=== PATIENT | male | born 1955 | race Caucasian/White ===

== ENCOUNTER 2019-01-01 10:58 | Inpatient (IN) | payer OTHER ==
[~2019-01-01] VITALS: Ht 200.7 cm; Wt 109.1 kg
[2019-01-01] VITALS (15 sets, daily range): BP systolic 121–178; BP diastolic 59–96
[2019-01-01 12:05] LABS: CLARITY,URINE CLEAR (Clear); COLOR,URINE YELLOW (Yellow); GLUCOSE, URINE >=1000 mg/dl (Neg); KETONES,URINE TRACE mg/dl (Neg); LEUKOCYTE ESTERASE ,URINE NEGATIVE (Neg); NITRITES, URINE NEGATIVE (Neg); OCCULT BLOOD,URINE NEGATIVE (Neg); PH,URINE 5.5 (4.8-8.0); PROTEIN,URINE NEGATIVE (Neg); UROBILINOGEN,URINE 0.2 E.U/dL (0.2-1.0)
[2019-01-01 12:06] LABS: UA COLLECTION TYPE CLN CATCH MIDSTREAM
[2019-01-01 12:12] LABS: ALANINE AMINOTRANSFERASE 51 U/L (12-78); ALBUMIN 3.7 G/DL (3.4-5.0); ALBUMIN/GLOBULIN RATIO 0.8 (1.1-1.5); ALKALINE PHOSPHATASE 72 IU/L (46-116); ANION GAP 9 (8-16); ASPARTATE AMINO TRANSFERASE 23 U/L (10-37); BILIRUBIN,TOTAL 0.8 MG/DL (0.1-1.0); BLOOD UREA NITROGEN 16 MG/DL (7-18); CALCIUM 8.9 MG/DL (8.5-10.1); CHLORIDE 99 MMOL/L (99-107); GLUCOSE 109 MG/DL (70-104); LIPASE 248 U/L (73-393); SODIUM 134 MMOL/L (135-145); TOTAL CARBON DIOXIDE 25.9 MMOL/L (24-32); TOTAL PROTEIN 8.2 G/DL (6.4-8.2); eGFR 76 ML/MIN
[2019-01-01 12:26] LABS: BASOPHILS % (AUTO) 0.3 % (0-1); EOSINOPHILS # (AUTO) 0.1 X10'3 (0-0.9); EOSINOPHILS % (AUTO) 0.5 % (0-6); HEMATOCRIT 46.2 % (42.0-52.0); HEMOGLOBIN 15.9 g/dl (14.0-17.9); LYMPHOCYTES % (AUTO) 18.3 % (21-51); MEAN CORPUSCULAR HEMOGLOBIN 30.8 PG (27.0-31.0); MEAN CORPUSCULAR HGB CONC 34.3 g/dL (33.0-36.5); MEAN CORPUSCULAR VOLUME 89.8 FL (78-98); MEAN PLATELET VOLUME 7.6 FL (7.4-10.4); MONOCYTES # (AUTO) 1.5 X10'3 (0-0.9); MONOCYTES % (AUTO) 13.8 % (2-12); NEUTROPHILS # (AUTO) 7.2 X10'3 (1.8-7.7); NEUTROPHILS % (AUTO) 67.1 % (42-75); PLATELET COUNT 242 X10'3 (140-440); RED BLOOD COUNT 5.15 X10'6 (4.70-6.10); RED CELL DISTRIBUTION WIDTH 13.3 % (11.5-14.5); WHITE BLOOD COUNT 10.8 X10'3 (4.5-11.0)
[2019-01-01 12:30] LABS: SQUAMOUS EPITHELIAL CELL,UR NONE SEEN /LPF (FEW)
[2019-01-01] MEDS ORDERED: normal saline 1000ML IV soln IVB ONE (12:30)
[2019-01-01] MEDS ORDERED: ondansetron/PF 4mg/2ml inj IV ONE (12:30)
[2019-01-01 12:31] LABS: BACTERIA,URINE NONE SEEN /HPF (Neg); RBC,URINE NONE SEEN /HPF (0-2); WBC,URINE NONE SEEN /HPF (0-4)
[2019-01-01 13:05] LABS: MAGNESIUM 2.2 MG/DL (1.5-2.4)
[2019-01-01] MEDS: diatr meglu/diatrizoate 30ml oral sol.-(3 dose) bottle PO SCH ×3 (13:25→14:50)
[2019-01-01] MEDS: morphine 2 MG/ML inj. syringe IV PRN ×2 (13:26→16:02)
[2019-01-01] MEDS ORDERED: iohexol 300mg/ml 100ml inj. ONE (15:03)
[2019-01-01] MEDS ORDERED: MESSAGE TO NURSING PO NR (15:15)
[2019-01-01] MEDS ORDERED: morphine 4 MG/ML inj SYRINge IV ONE (15:55)
[2019-01-01] MEDS ORDERED: TETanus/Pertussis (Acell)/Diphther VAC/PF (Tdap-Adult) 0.5ml syringe IM ONE (16:05)
[2019-01-01] MEDS ORDERED: dextrose 5%-1/2 normal saline 1,000 ML IV SCH (16:14)
[2019-01-01] MEDS ORDERED: ringers solution, lacted 1,000 ML IV SCH ×2 (16:15→17:13)
[2019-01-01] MEDS ORDERED: magnesium hydroxide 30ml (MOM) UD suspension PO PRN (16:15)
[2019-01-01] MEDS ORDERED: acetaminophen 325mg tablet PO PRN ×2 (16:15)
[2019-01-01] MEDS ORDERED: morphine 2 MG/ML inj. syringe IV PRN ×2 (16:15)
[2019-01-01] MEDS ORDERED: HYDROcodone/acetaminophen 5mg/325mg tablet PO PRN ×3 (16:15→18:20)
[2019-01-01] MEDS ORDERED: ondansetron/PF 4mg/2ml inj IV PRN ×2 (16:15→17:15)
[2019-01-01] MEDS ORDERED: mag hydrox/Alum hydrox/simeth 30ml oral suspension PO PRN (16:15)
[2019-01-01] MEDS ORDERED: LIDOcaine 1% 30ml preserv. free vial ONE (16:16)
[2019-01-01] MEDS ORDERED: BUPIVAcaine/PF 2.5 mg/ml (0.25%) 30ml vial ONE (16:16)
[2019-01-01] MEDS ORDERED: sevoflurane 250ml liquid IH ONE (16:45)
[2019-01-01] MEDS ORDERED: midazolam 2 mg/2 ml injection ONE (16:55)
[2019-01-01] MEDS ORDERED: fentaNYL /PF 50mcg/ml 5ml ampule ONE (16:55)
[2019-01-01] MEDS ORDERED: rocuronium 10mg/ml inj IV ONE (16:55)
[2019-01-01] MEDS ORDERED: propofol inj 20 ML IV ONE (16:57)
[2019-01-01] MEDS ORDERED: proCHLORperazine 10 MG/2 ml inj IV PRN (17:15)
[2019-01-01] MEDS ORDERED: morphine 4 MG/ML inj SYRINge IV PRN ×2 (17:15)
[2019-01-01] MEDS ORDERED: meperidine/PF 25mg/ml syringe IV PRN ×3 (17:15)
[2019-01-01] MEDS ORDERED: cefotetan inj 1 GM in normal saline 50ml IV soln 50 ML IV SCH ×5 (17:20→20:00)
[2019-01-01] MEDS ORDERED: neostigmine methylsulfate 1 MG/ML 10ml vial ONE (18:00)
[2019-01-01] MEDS ORDERED: HYDROcodone/acetaminophen 10/325mg tab PO PRN ×2 (18:10→18:20)
[2019-01-01] MEDS ORDERED: ketorolac tromethamine 15mg/ml inj. IV ONE (18:15)
[2019-01-01] MEDS ORDERED: glycopyrrolate 0.2mg/ml inj ONE (18:19)
--- NOTE | 2019-01-01 18:20 | NUR ---
Received from OR via bed, accompanied by Anesthesiologist. Report received. Initial physical assessment done and recorded.
--- NOTE | 2019-01-01 19:20 | NUR ---
Discharge criteria met, report to receiving floor. Transferred to room in stable condition.
[2019-01-01] MEDS: HYDROcodone/acetaminophen 10/325mg tab PO PRN (19:36)
--- NOTE | 2019-01-01 19:45 | NUR ---
Patient in room [facility]. I have received report from recovering room and had the opportunity to ask questions and assume patient care. Patient is resting and was given pain meds for pain. He shows no signs of distress and his is by his bed side.
[2019-01-01] MEDS: heparin, porcine 5000 units/ml vial SQ SCH (20:00)
--- NOTE | 2019-01-01 20:15 | NUR ---
DR. BLUE AT BEDSIDE WITH PATIENT, ORDERS GIVEN FOR THE DIABETIC PROTOCOL. WILL INITIATE AND CONTINUE TO MONITOR.
[2019-01-01] MEDS ORDERED: hyDRALAzine 10mg tablet PO PRN (20:30)
[2019-01-01] MEDS ORDERED: dextrose ORAL solution 15 GM/59 ML bottle PO PRN ×2 (20:40)
[2019-01-01] MEDS ORDERED: insulin Lispro (HumaLOG) vial - multi-dose SQ SCH (20:40)
[2019-01-01] MEDS ORDERED: MESSAGE TO PHARMACY PO ONE (20:40)
[2019-01-01] MEDS ORDERED: glucagon, human recombinant 1mg kit SUBCUT PRN (20:40)
[2019-01-01] MEDS ORDERED: dextrose 50%-water 50ml dispensing syringe IV PRN ×2 (20:40)
[2019-01-01] MEDS: insulin glargine (Lantus) pen - multi-dose SQ SCH (21:00)
[2019-01-01 22:02] LABS: HEMOGLOBIN A1C 7.2 % (4.5-6.2)
[2019-01-02] VITALS: BP 128/58
[2019-01-02 05:14] LABS: BASOPHILS % (AUTO) 0.2 % (0-1); EOSINOPHILS % (AUTO) 0 % (0-6); HEMATOCRIT 40.8 % (42.0-52.0); HEMOGLOBIN 13.9 g/dl (14.0-17.9); LYMPHOCYTES # (AUTO) 1.5 X10'3 (1.1-4.8); LYMPHOCYTES % (AUTO) 11.3 % (21-51); MEAN CORPUSCULAR HEMOGLOBIN 30.5 PG (27.0-31.0); MEAN CORPUSCULAR VOLUME 89.6 FL (78-98); MEAN PLATELET VOLUME 7.5 FL (7.4-10.4); MONOCYTES # (AUTO) 1.8 X10'3 (0-0.9); NEUTROPHILS # (AUTO) 10.2 X10'3 (1.8-7.7); NEUTROPHILS % (AUTO) 75.5 % (42-75); PLATELET COUNT 211 X10'3 (140-440); RED BLOOD COUNT 4.56 X10'6 (4.70-6.10); RED CELL DISTRIBUTION WIDTH 13.6 % (11.5-14.5); WHITE BLOOD COUNT 13.5 X10'3 (4.5-11.0)
[2019-01-02 05:37] LABS: ALBUMIN 3.1 G/DL (3.4-5.0); ANION GAP 12 (8-16); BLOOD UREA NITROGEN 14 MG/DL (7-18); BUN/CREATININE RATIO 14.4 (5.4-32.0); CALCIUM 8.7 MG/DL (8.5-10.1); CHLORIDE 100 MMOL/L (99-107); CREATININE 0.97 MG/DL (0.60-1.10); GLUCOSE 112 MG/DL (70-104); POTASSIUM 4.3 MMOL/L (3.5-5.1); SODIUM 133 MMOL/L (135-145); eGFR 79 ML/MIN
--- NOTE | 2019-01-02 06:33 | NUR ---
Patient in room [facility]. I have received report from Naa DAMICO and had the opportunity to ask questions and assume patient care.
--- NOTE | 2019-01-02 06:42 | NUR ---
I have reviewed and agree with all medications administered and interventions performed by JAYLEEN DAMICO
[2019-01-02 07:00] VITALS: BP 127/61
[2019-01-02] MEDS: HYDROcodone/acetaminophen 10/325mg tab PO PRN ×2 (07:22→16:26)
[2019-01-02] MEDS: cefotetan 1gm/50ml IVPB 50 ML IV SCH ×2 (07:25→19:50)
[2019-01-02] MEDS: heparin, porcine 5000 units/ml vial SQ SCH ×2 (07:25→19:50)
[2019-01-02] MEDS ORDERED: INSU100V11 SQ ×2 (10:38)
[2019-01-02] MEDS ORDERED: METF500T PO (10:42)
[2019-01-02] MEDS ORDERED: CAT2P TD (10:42)
[2019-01-02] MEDS ORDERED: RAMI10CA69 PO (10:42)
[2019-01-02] MEDS ORDERED: CANA300T PO (10:45)
[2019-01-02] MEDS ORDERED: ATOR20TA PO (10:47)
[2019-01-02] MEDS ORDERED: HYDR12.5 PO (10:47)
[2019-01-02] MEDS ORDERED: AMLO2.5T2 PO (10:47)
[2019-01-02] MEDS ORDERED: OMEP40CA37 PO (10:48)
[2019-01-02 11:00] VITALS: BP 143/64
[2019-01-02] MEDS: HYDROmorphone inj. 0.5 MG/0.5 ML DISP.SYRIN IV PRN ×2 (12:14→19:51)
--- NOTE | 2019-01-02 13:36 | NUR ---
DM consult: Pt with A1c 7.2 seen at bedside. Pt states he sees an MD q 6 weeks or q 3-4 months for DM management. Pt reports usual A1c is upper six and that his BG levels ranges 97-104 when he checks it in the morning. Pt with no questions at this time. Written DM ed with referral to outpatient DM class and RD contact information provided. Will remain available. Addendum: 01/02/19 at [address] Amended: Links added.
[2019-01-02] MEDS: metroNIDAZOLE-Flagyl 500mg/NS 100 ML IV SCH (16:23)
--- NOTE | 2019-01-02 18:30 | NUR ---
Patient in room [facility]. I have received report from NAA DAMICO and had the opportunity to ask questions and assume patient care.
--- NOTE | 2019-01-02 18:48 | NUR ---
Problems reprioritized. Patient report given, questions answered & plan of care reviewed with Naa DAMICO and Maral DAMICO.
--- NOTE | 2019-01-02 18:50 | NUR ---
Patient in room [facility]. I have received report from Vito DAMICO and had the opportunity to ask questions and assume patient care.
[2019-01-02 19:00] VITALS: BP 128/76
[2019-01-02] MEDS: insulin glargine (Lantus) pen - multi-dose SQ SCH (21:00)
[2019-01-03] VITALS: BP 145/64
[2019-01-03] MEDS: metroNIDAZOLE-Flagyl 500mg/NS 100 ML IV SCH ×2 (01:00→07:50)
--- NOTE | 2019-01-03 05:38 | NUR ---
I have reviewed and agree with all interventions, assessments performed and documented by PRUDENCE RN.
--- NOTE | 2019-01-03 05:59 | NUR ---
Problems reprioritized. Patient report given, questions answered & plan of care reviewed with Eduarda DAMICO.
[2019-01-03 06:14] LABS: BASOPHILS % (AUTO) 0.4 % (0-1); EOSINOPHILS % (AUTO) 0.3 % (0-6); HEMATOCRIT 40.7 % (42.0-52.0); HEMOGLOBIN 13.9 g/dl (14.0-17.9); LYMPHOCYTES # (AUTO) 1.2 X10'3 (1.1-4.8); LYMPHOCYTES % (AUTO) 10.6 % (21-51); MEAN CORPUSCULAR HEMOGLOBIN 30.5 PG (27.0-31.0); MEAN CORPUSCULAR VOLUME 89.5 FL (78-98); MONOCYTES # (AUTO) 1.6 X10'3 (0-0.9); NEUTROPHILS # (AUTO) 8.3 X10'3 (1.8-7.7); NEUTROPHILS % (AUTO) 74.7 % (42-75); PLATELET COUNT 230 X10'3 (140-440); RED BLOOD COUNT 4.55 X10'6 (4.70-6.10); RED CELL DISTRIBUTION WIDTH 13.3 % (11.5-14.5); WHITE BLOOD COUNT 11.1 X10'3 (4.5-11.0)
--- NOTE | 2019-01-03 06:23 | NUR ---
Patient in room [facility]. I have received report from Naa DAMICO and Maral DAMICO and had the opportunity to ask questions and assume patient care.
[2019-01-03 06:30] LABS: ALBUMIN 2.9 G/DL (3.4-5.0); ANION GAP 13 (8-16); BLOOD UREA NITROGEN 11 MG/DL (7-18); BUN/CREATININE RATIO 13.4 (5.4-32.0); CALCIUM 8.8 MG/DL (8.5-10.1); CHLORIDE 99 MMOL/L (99-107); CREATININE 0.82 MG/DL (0.60-1.10); GLUCOSE 128 MG/DL (70-104); SODIUM 132 MMOL/L (135-145); TOTAL CARBON DIOXIDE 20.5 MMOL/L (24-32); eGFR > 90 ML/MIN
[2019-01-03 07:00] VITALS: BP 157/84
[2019-01-03] MEDS: cefotetan 1gm/50ml IVPB 50 ML IV SCH (07:15)
[2019-01-03] MEDS: heparin, porcine 5000 units/ml vial SQ SCH (07:29)
[2019-01-03] MEDS ORDERED: CEFD300C3 PO (11:38)
[2019-01-03] MEDS ORDERED: LACT1CAP26 PO (11:38)
[2019-01-03] MEDS ORDERED: METR-159 PO (11:38)
--- NOTE | 2019-01-03 12:15 | NUR ---
Discharge instructions given to patient, patient verbalized understanding of all instructions made. Peripheral IV catheter removed, tip intact. New prescriptions called in. Instructed patient to ensure he has all his belongings before leaving
== END 2019-01-03 12:15 | disposition home or self-care (01) | DRG 343 ==
LOC: ER 10:59 → SUR 3N 19:29
PROVIDERS: ADMIT Internal Medicine; ATTEND Hospitalist
PROC: BW211ZZ Computerized Tomography (CT Scan) of Abdomen and Pelvis using Low Osmolar Contrast (ICD-10-PCS; 2019-01-01)
PROC: 0DTJ4ZZ Resection of Appendix, Percutaneous Endoscopic Approach (ICD-10-PCS; principal; 2019-01-01 16:54)
DX: K35.80 Unspecified acute appendicitis (principal); E11.9 Type 2 diabetes mellitus without complications; I10 Essential (primary) hypertension; K57.30 Diverticulosis of large intestine without perforation or abscess without bleeding; Z91.030 Bee allergy status; Z91.018 Allergy to other foods; Z79.899 Other long term (current) drug therapy; Z79.4 Long term (current) use of insulin
CPT/HCPCS: 96374; 96375; 99285; Z7506; 36415; 71045; 74177; 80048; 80053; 81001; 82948; 83036; 83605; 83690; 83735; 85025; 85610; 86885; 86900; 86901; 87040; 87070; 93005; A7000; G0378; J1170; J1644; J1815; J2175; J2250; J2270; J2405; J2704; J2710; J3010; J3490; J7030; J7040; J7120; Q9963; Q9967

== ENCOUNTER 2021-08-31 04:59 | Inpatient (IN) | payer OTHER ==
[2021-08-31] VITALS (19 sets, daily range): BP systolic 128–171; BP diastolic 68–114
[~2021-08-31] VITALS: Ht 167.6 cm; Wt 106.8 kg
[~2021-08-31 04:59] MED LIST: AMLO2.5T2 PO; ATOR20TA PO; CANA300T PO; CAT2P TD; HYDR12.5 PO; INSU100V11 SQ; LACT1CAP26 PO; METF500T PO; OMEP40CA21 PO; RAMI10CA69 PO
[2021-08-31] MEDS ORDERED: ondansetron/PF 4mg/2ml inj IV ONE (05:30)
[2021-08-31] MEDS ORDERED: normal saline 1000ML IV soln IVB ONE (05:30)
[2021-08-31] MEDS ORDERED: morphine 4 MG/ML inj SYRINge IV PRN (05:30)
[2021-08-31] MEDS ORDERED: piperacillin/tazo 4.5gm/100ml 100 ML IV ONE (06:35)
[2021-08-31] MEDS ORDERED: normal saline 1000ml 1,000 ML IV ONE (06:55)
[2021-08-31 07:04] LABS: BASOPHILS % (AUTO) 0.4 % (0-1); EOSINOPHILS % (AUTO) 0.1 % (0-6); HEMOGLOBIN 14.6 g/dl (14.0-17.9); LYMPHOCYTES % (AUTO) 8.6 % (21-51); MEAN CORPUSCULAR HEMOGLOBIN 31.5 PG (27.0-31.0); MEAN CORPUSCULAR HGB CONC 33.9 g/dL (33.0-36.5); MEAN CORPUSCULAR VOLUME 93.1 FL (78-98); MEAN PLATELET VOLUME 8.9 FL (7.4-10.4); MONOCYTES # (AUTO) 1.1 X10'3 (0-0.9); MONOCYTES % (AUTO) 9.6 % (2-12); NEUTROPHILS # (AUTO) 9.1 X10'3 (1.8-7.7); NEUTROPHILS % (AUTO) 81.3 % (42-75); PLATELET COUNT 249 X10'3 (140-440); RED BLOOD COUNT 4.62 X10'6 (4.70-6.10); RED CELL DISTRIBUTION WIDTH 13.3 % (11.5-14.5); WHITE BLOOD COUNT 11.2 X10'3 (4.5-11.0)
[2021-08-31 07:11] LABS: ALANINE AMINOTRANSFERASE 50 U/L (12-78); ALBUMIN/GLOBULIN RATIO 0.7 (1.1-1.5); ALKALINE PHOSPHATASE 53 IU/L (46-116); ANION GAP 13 (8-16); ASPARTATE AMINO TRANSFERASE 17 U/L (10-37); BILIRUBIN,TOTAL 0.9 MG/DL (0.1-1.0); BLOOD UREA NITROGEN 21 MG/DL (7-18); BUN/CREATININE RATIO 18.8 (5.4-32.0); CALCIUM 8.6 MG/DL (8.5-10.1); CHLORIDE 102 MMOL/L (99-107); CREATININE 1.12 MG/DL (0.60-1.10); GLUCOSE 266 MG/DL (70-104); LIPASE 117 U/L (73-393); POTASSIUM 3.6 MMOL/L (3.5-5.1); SODIUM 137 MMOL/L (135-145); TOTAL CARBON DIOXIDE 21.9 MMOL/L (24-32); TOTAL PROTEIN 7.6 G/DL (6.4-8.2); eGFR 66 ML/MIN
[2021-08-31] MEDS ORDERED: magnesium 2GM in 50ml NS 50 ML IV PRN (07:30)
[2021-08-31] MEDS ORDERED: HYDROmorphone/PF 0.2 MG/ML SYRINGE IV PRN (07:30)
[2021-08-31] MEDS ORDERED: acetaminophen 325mg tablet PO PRN (07:30)
[2021-08-31] MEDS ORDERED: magnesium 4gm in 100ml NS 100 ML IV PRN (07:30)
[2021-08-31] MEDS ORDERED: potassium Cl 20 mEq SR tablet PO PRN ×2 (07:30)
[2021-08-31] MEDS ORDERED: magnesium Cl slow-release 64mg tablet PO PRN (07:30)
[2021-08-31] MEDS ORDERED: mag hydrox/Alum hydrox/simeth 30ml oral suspension PO PRN (07:30)
[2021-08-31] MEDS ORDERED: potassium CL 10mEq/100ml bag 100 ML IV PRN (07:30)
[2021-08-31] MEDS ORDERED: magnesium hydroxide 30ml (MOM) UD suspension PO PRN (07:30)
[2021-08-31] MEDS ORDERED: INSU100I5 SQ (07:47)
[2021-08-31] MEDS ORDERED: SITA50TA7 PO (07:47)
[2021-08-31] MEDS ORDERED: HYDR25TA4 PO (07:47)
[2021-08-31] MEDS ORDERED: LABE100T5 PO (07:47)
[2021-08-31] MEDS ORDERED: AMLO10TA PO (07:47)
[2021-08-31] MEDS ORDERED: DEXA6TAB PO (07:49)
[2021-08-31] MEDS ORDERED: OSEL75CA17 PO (07:49)
[2021-08-31] MEDS: normal saline 1000ml 1,000 ML IV SCH (07:58)
[2021-08-31] MEDS: enoxaparin 40mg/0.4ml syringe SUBCUT SCH (08:00)
[2021-08-31] MEDS: K and/or MAG REPLACEMENT MC SCH ×2 (08:00→20:00)
[2021-08-31] MEDS: piperacillin/tazo 4.5gm/100ml 100 ML IV SCH ×3 (08:03→23:33)
[2021-08-31 09:16] LABS: MAGNESIUM 2.1 MG/DL (1.5-2.4); POTASSIUM 3.6 MMOL/L (3.5-5.1)
[2021-08-31] MEDS: docusate sod 100mg capsule PO SCH ×2 (11:29→20:51)
--- NOTE | 2021-08-31 11:40 | NUR ---
RENÉ HELD FOR PROCEDURE PER DR. KEARNS
[2021-08-31] MEDS: HYDROmorphone inj. 0.5 MG/0.5 ML DISP.SYRIN IV PRN (11:58)
[2021-08-31 12:11] LABS: CLARITY,URINE SLIGHTLY CLOUDY (Clear); COLOR,URINE YELLOW (Yellow); GLUCOSE, URINE 500 mg/dl (Neg); KETONES,URINE TRACE mg/dl (Neg); LEUKOCYTE ESTERASE ,URINE NEGATIVE (Neg); NITRITES, URINE NEGATIVE (Neg); OCCULT BLOOD,URINE NEGATIVE (Neg); PH,URINE 5.5 (4.8-8.0); PROTEIN,URINE 30 mg/dl (Neg); UA COLLECTION TYPE URINAL
[2021-08-31 12:16] LABS: BACTERIA,URINE 1+ /HPF (Neg); MUCUS STRANDS MANY /LPF (Neg); RBC,URINE 0-2 /HPF (0-2); SQUAMOUS EPITHELIAL CELL,UR FEW /LPF (FEW); WBC,URINE 0-4 /HPF (0-4)
[2021-08-31] MEDS ORDERED: AMLO5TAB PO (12:54)
[2021-08-31] MEDS ORDERED: hydrALAZINE 20mg/ml inj. IV PRN (13:00)
[2021-08-31] MEDS ORDERED: ringers solution, lacted 1,000 ML IV SCH (13:00)
[2021-08-31] MEDS ORDERED: labetalol 20mg/4ml (5mg/ml) syringe IV PRN (13:00)
[2021-08-31] MEDS ORDERED: morphine 2 MG/ML inj. syringe IV PRN (13:00)
[2021-08-31] MEDS ORDERED: fentaNYL/PF 50MCG/1 ML 2ML syringe IV PRN ×2 (13:00)
[2021-08-31] MEDS ORDERED: ondansetron/PF 4mg/2ml inj IV PRN (13:00)
[2021-08-31] MEDS ORDERED: BUPIVAcaine/PF 2.5mg/ml (0.25%) 10ml vial ONE (13:01)
[2021-08-31] MEDS ORDERED: BUPIVACAINE liposomal/PF 13.3 MG/ML vial IM ONE (13:01)
[2021-08-31] MEDS ORDERED: propofol inj 20 ML IV ONE (13:06)
[2021-08-31] MEDS ORDERED: rocuronium 10mg/ml inj IV ONE ×2 (13:06→15:22)
[2021-08-31] MEDS ORDERED: LIDOcaine 2% (20mg/ml) 5ml vial ONE (13:06)
--- NOTE | 2021-08-31 13:24 | NUR ---
pt taken to surgery
[2021-08-31] MEDS ORDERED: haloperidol 5mg tablet PO PRN (13:30)
[2021-08-31] MEDS ORDERED: LORazepam 2 mg/ml vial IV PRN (13:30)
[2021-08-31] MEDS ORDERED: dextrose 50%-water 50ml dispensing syringe IV PRN ×3 (13:30→18:45)
[2021-08-31] MEDS ORDERED: haloperidol lactate 5mg/ml inj IM PRN (13:30)
[2021-08-31] MEDS ORDERED: fentaNYL/PF 50MCG/1 ML 2ML syringe ONE (13:47)
[2021-08-31] MEDS ORDERED: midazolam 1 mg/ML 2ml injection ONE (13:47)
[2021-08-31] MEDS ORDERED: ondansetron/PF 4mg/2ml inj ONE (14:13)
[2021-08-31] MEDS ORDERED: insulin regular, human U-100 3ml vial - multi-dose ONE (14:31)
[2021-08-31] MEDS ORDERED: sugammadex 200mg/2ml injection IV ONE (15:00)
[2021-08-31] MEDS ORDERED: insulin regular, human 10 units/0.1 ml syringe IV ONE (16:30)
[2021-08-31] MEDS ORDERED: ketorolac trometh. 30mg/ml inj. IV ONE (16:40)
[2021-08-31] MEDS: morphine 4 MG/ML inj SYRINge IV PRN ×2 (16:54→17:17)
[2021-08-31] MEDS ORDERED: acetaminophen 1,000mg/100ml IV 100 ML IV ONE (17:02)
--- NOTE | 2021-08-31 17:14 | NUR ---
Received report from recovery from zac rn. Pt. due to come to room 348B any minute.
[2021-08-31] MEDS: ondansetron/PF 4mg/2ml inj IV PRN (17:24)
--- NOTE | 2021-08-31 17:31 | NUR ---
Report called to receiving nurse. Transferred via BED Belongings . Special Issues communicated to receiving nurse.AWAKE AND ORIENTED. VITALS STABLE. DRESSING DI. STATES PAIN IMPROVING. TO SURGICAL RM 348B AT THIS TIME.
--- NOTE | 2021-08-31 17:55 | NUR ---
Pt. to floor. Dropped off in room 348B. Pt. states 05/13 abd pain. GUIDO drain full. 69 sanguineous fluid drained. Pt. repositioned for comfort. Post op VS in place. Pt. slightly tachy, ETOH pt. Ativan given per order. Pt. on 5LPM 02 sating at 96%.
--- NOTE | 2021-08-31 18:22 | NUR ---
Patient in room ED 6. I have received report from Lulu DAMICO and had the opportunity to ask questions and assume patient care.
--- NOTE | 2021-08-31 18:27 | NUR ---
Gave report to Khushbu DAMICO.
--- NOTE | 2021-08-31 18:31 | NUR ---
Patient in room ED 6. I have received report from Lulu DAMICO and had the opportunity to ask questions and assume patient care. Addendum: 08/31/21 at 1832 by Khushbu Parikh RN Pt in room 348B
--- NOTE | 2021-08-31 18:37 | NUR ---
PAGER ID: [phone] MESSAGE: Please call surgical to discuss Santos Turk in 348B. Thank you. Lulu [id number]
[2021-08-31] MEDS ORDERED: MESSAGE TO PHARMACY PO ONE (18:45)
[2021-08-31] MEDS ORDERED: glucagon, human recombinant 1mg kit SUBCUT PRN (18:45)
[2021-08-31] MEDS ORDERED: dextrose ORAL solution 15 GM/59 ML bottle PO PRN (18:45)
[2021-08-31 19:51] LABS: HEMOGLOBIN A1C 8.9 % (4.5-6.2)
[2021-08-31] MEDS ORDERED: HumuLIN NPH/Reg 70/30 insulin 10ml vial SQ SCH (20:00)
[2021-08-31] MEDS ORDERED: metFORMIN 500mg tablet PO SCH (20:00)
[2021-08-31] MEDS: lactobacillus rhamnosus 10,000 MMU CELLS/CAPSULE PO SCH (20:51)
[2021-08-31] MEDS: lisinopril 20mg tablet PO SCH (20:52)
[2021-08-31] MEDS ORDERED: linagliptin 5mg tablet PO SCH (21:00)
[2021-08-31] MEDS: labetalol 100mg tablet PO SCH (21:04)
[2021-08-31] MEDS: thiamine 100mg/ml 2ml inj. IV SCH (21:04)
[2021-08-31] MEDS: insulin glargine (Lantus) pen - multi-dose SQ SCH (21:56)
[2021-08-31] MEDS: insulin Lispro (HumaLOG) vial - multi-dose SQ SCH (21:58)
[2021-09-01] VITALS: BP 129/72
[2021-09-01] MEDS: HYDROmorphone inj. 0.5 MG/0.5 ML DISP.SYRIN IV PRN ×2 (01:42→09:30)
[2021-09-01] MEDS: normal saline 1000ml 1,000 ML IV SCH ×4 (01:49→22:21)
[2021-09-01 04:00] VITALS: BP 118/67
--- NOTE | 2021-09-01 06:36 | NUR ---
Problems reprioritized. Patient report given, questions answered & plan of care reviewed with RN.
--- NOTE | 2021-09-01 06:40 | NUR ---
Patient in room [facility]. I have received report from Khushbu DAMICO and had the opportunity to ask questions and assume patient care.
[2021-09-01 07:00] VITALS: BP 146/83
[2021-09-01 07:06] LABS: BASOPHILS % (AUTO) 0.2 % (0-1); EOSINOPHILS % (AUTO) 0.1 % (0-6); LYMPHOCYTES # (AUTO) 0.9 X10'3 (1.1-4.8); LYMPHOCYTES % (AUTO) 8.5 % (21-51); MEAN CORPUSCULAR HGB CONC 34.3 g/dL (33.0-36.5); MEAN CORPUSCULAR VOLUME 93.2 FL (78-98); MEAN PLATELET VOLUME 8.8 FL (7.4-10.4); MONOCYTES # (AUTO) 1.3 X10'3 (0-0.9); MONOCYTES % (AUTO) 12.7 % (2-12); NEUTROPHILS # (AUTO) 8.3 X10'3 (1.8-7.7); NEUTROPHILS % (AUTO) 78.5 % (42-75); PLATELET COUNT 226 X10'3 (140-440); RED BLOOD COUNT 4.08 X10'6 (4.70-6.10); RED CELL DISTRIBUTION WIDTH 13.4 % (11.5-14.5); WHITE BLOOD COUNT 10.5 X10'3 (4.5-11.0)
[2021-09-01 07:27] LABS: ALBUMIN 2.4 G/DL (3.4-5.0); ANION GAP 9 (8-16); BLOOD UREA NITROGEN 30 MG/DL (7-18); BUN/CREATININE RATIO 19.1 (5.4-32.0); CHLORIDE 107 MMOL/L (99-107); CREATININE 1.57 MG/DL (0.60-1.10); GLUCOSE 257 MG/DL (70-104); POTASSIUM 4.5 MMOL/L (3.5-5.1); SODIUM 138 MMOL/L (135-145); TOTAL CARBON DIOXIDE 21.6 MMOL/L (24-32); eGFR 45 ML/MIN
[2021-09-01] MEDS: K and/or MAG REPLACEMENT MC SCH ×2 (08:00→20:00)
[2021-09-01] MEDS ORDERED: amLODIPine 5mg tablet PO SCH (08:00)
[2021-09-01] MEDS: pantoprazole 40mg Tablet.DR PO SCH (09:28)
[2021-09-01] MEDS: HYDROchlorothiazide 25mg tablet PO SCH (09:28)
[2021-09-01] MEDS: lactobacillus rhamnosus 10,000 MMU CELLS/CAPSULE PO SCH ×2 (09:28→21:15)
[2021-09-01] MEDS: thiamine 100mg/ml 2ml inj. IV SCH ×3 (09:31→21:15)
[2021-09-01] MEDS: enoxaparin 40mg/0.4ml syringe SUBCUT SCH (09:33)
[2021-09-01] MEDS: docusate sod 100mg capsule PO SCH ×2 (09:34→21:15)
[2021-09-01] MEDS: piperacillin/tazo 4.5gm/100ml 100 ML IV SCH ×3 (09:42→23:24)
[2021-09-01] MEDS: folic acid 1mg/0.2ml inj IV SCH (12:00)
[2021-09-01] MEDS: amLODIPine 5mg tablet PO SCH (12:06)
[2021-09-01] MEDS: lisinopril 20mg tablet PO SCH (12:07)
--- NOTE | 2021-09-01 13:44 | NUR ---
Surg [id number] RE: Matthew Crocker 670a Spoke with Dr. Mackenzie and he was planning DC for 09/02 am. Still watching Albumin for fluid shifts. Thanks . Addendum: 09/01/21 at 1350 by Gurdeep Humphries RN Spoke with MD, patient discharged from his standpoint, will notify.
[2021-09-01] MEDS: insulin Lispro (HumaLOG) vial - multi-dose SQ SCH ×3 (14:05→21:35)
--- NOTE | 2021-09-01 15:11 | NUR ---
Initial: Pt admit for perforated diverticulitis with abscess and sepsis. Pt currently NPO POD #1 s/p sigmoid colectomy. Noted pt with T2DM with A1c 8.9%. Currently with c/o nausea and abdominal pain. Pt would benefit from DM education once more stable. LBM 08/27, receiving routine bowel care BID. Will continue to follow closely and make recommendations as appropriate. Recommendations: 1) Advance to low fiber CHO controlled diet as medically indicated 2) Monitor need for ONS/additional protein with diet advancement 3) Bowel care per MD 4) Scaled weight this admit; weekly scaled weights thereafter 5) DM education once stable, A1c 8.9% Addendum: 09/01/21 at [address] Amended: Links added.
[2021-09-01 15:26] VITALS: BP 162/95
--- NOTE | 2021-09-01 16:42 | NUR ---
PAGER ID: [phone] MESSAGE: Surg [id number] Re: Mary Turk Patient states dilaudid may be too strong of pain management,(hallucinations) did you want to add something else as an alternative. Addendum: 09/01/21 at 1656 by Gurdeep Humphries RN MD returned call and orders were received at this time.
[2021-09-01] MEDS ORDERED: morphine 2 MG/ML inj. syringe IV PRN (17:00)
[2021-09-01] MEDS: morphine 2 MG/ML inj. syringe IV PRN (17:20)
--- NOTE | 2021-09-01 18:34 | NUR ---
Patient in room [facility]. I have received report from Matt León and had the opportunity to ask questions and assume patient care. Addendum: 09/01/21 at 1835 by Malia Kaur RN Amended: Links added.
--- NOTE | 2021-09-01 18:51 | NUR ---
Problems reprioritized. Patient report given, questions answered & plan of care reviewed with Malia DAMICO.
[2021-09-01 20:00] VITALS: BP 167/86
[2021-09-01] MEDS: labetalol 100mg tablet PO SCH (21:15)
[2021-09-01] MEDS: insulin glargine (Lantus) pen - multi-dose SQ SCH (21:32)
[2021-09-02 00:23] VITALS: BP 156/94
[2021-09-02] MEDS: morphine 2 MG/ML inj. syringe IV PRN ×4 (01:14→19:14)
--- NOTE | 2021-09-02 01:23 | NUR ---
pt assisted up to ambulate in the zapien. belching up air walking with front wheel walker no bowel sounds currently.
--- NOTE | 2021-09-02 05:32 | NUR ---
complaint of pain medicated with 2 mg of morphine for this.
[2021-09-02 06:00] LABS: BASOPHILS % (AUTO) 0.1 % (0-1); EOSINOPHILS % (AUTO) 0.1 % (0-6); HEMATOCRIT 42.4 % (42.0-52.0); HEMOGLOBIN 14.1 g/dl (14.0-17.9); LYMPHOCYTES # (AUTO) 0.8 X10'3 (1.1-4.8); LYMPHOCYTES % (AUTO) 5.6 % (21-51); MEAN CORPUSCULAR HEMOGLOBIN 31.3 PG (27.0-31.0); MEAN CORPUSCULAR HGB CONC 33.3 g/dL (33.0-36.5); MEAN CORPUSCULAR VOLUME 94.1 FL (78-98); MEAN PLATELET VOLUME 8.4 FL (7.4-10.4); MONOCYTES # (AUTO) 1.6 X10'3 (0-0.9); MONOCYTES % (AUTO) 12.2 % (2-12); NEUTROPHILS # (AUTO) 11.1 X10'3 (1.8-7.7); PLATELET COUNT 262 X10'3 (140-440); RED CELL DISTRIBUTION WIDTH 13.6 % (11.5-14.5); WHITE BLOOD COUNT 13.5 X10'3 (4.5-11.0)
--- NOTE | 2021-09-02 06:16 | NUR ---
Problems reprioritized. Patient report given, questions answered & plan of care reviewed with Matt León. Addendum: 09/02/21 at 0617 by Malia Kaur RN Amended: Links added.
[2021-09-02 06:21] LABS: ALBUMIN 2.3 G/DL (3.4-5.0); ANION GAP 11 (8-16); BLOOD UREA NITROGEN 26 MG/DL (7-18); BUN/CREATININE RATIO 19.4 (5.4-32.0); CALCIUM 8.3 MG/DL (8.5-10.1); CHLORIDE 108 MMOL/L (99-107); CREATININE 1.34 MG/DL (0.60-1.10); GLUCOSE 257 MG/DL (70-104); SODIUM 142 MMOL/L (135-145); TOTAL CARBON DIOXIDE 23.3 MMOL/L (24-32); eGFR 54 ML/MIN
--- NOTE | 2021-09-02 07:12 | NUR ---
Patient in room [facility]. I have received report from Malia DAMICO and had the opportunity to ask questions and assume patient care.
[2021-09-02] MEDS: K and/or MAG REPLACEMENT MC SCH ×2 (08:00→20:00)
[2021-09-02 08:05] VITALS: BP 173/89
[2021-09-02] MEDS: enoxaparin 40mg/0.4ml syringe SUBCUT SCH (08:58)
[2021-09-02] MEDS: docusate sod 100mg capsule PO SCH ×2 (08:58→19:15)
[2021-09-02] MEDS: lactobacillus rhamnosus 10,000 MMU CELLS/CAPSULE PO SCH ×2 (08:58→19:15)
[2021-09-02] MEDS: HYDROchlorothiazide 25mg tablet PO SCH (08:58)
[2021-09-02] MEDS: pantoprazole 40mg Tablet.DR PO SCH (08:58)
[2021-09-02] MEDS: piperacillin/tazo 4.5gm/100ml 100 ML IV SCH ×3 (08:59→23:37)
[2021-09-02] MEDS: folic acid 1mg/0.2ml inj IV SCH (08:59)
[2021-09-02] MEDS: thiamine 100mg/ml 2ml inj. IV SCH (08:59)
[2021-09-02] MEDS: lisinopril 20mg tablet PO SCH (09:00)
[2021-09-02] MEDS: amLODIPine 5mg tablet PO SCH (09:01)
[2021-09-02] MEDS: insulin Lispro (HumaLOG) vial - multi-dose SQ SCH ×3 (09:46→21:53)
[2021-09-02] MEDS: normal saline 1000ml 1,000 ML IV SCH ×2 (10:12→20:36)
--- NOTE | 2021-09-02 12:03 | NUR ---
Ba catheter taken out at this time. Dressing changed and packing out of surgical site at this time.
[2021-09-02 13:01] VITALS: BP 162/94
[2021-09-02] MEDS ORDERED: LORazepam 1 MG tablet PO PRN (13:30)
[2021-09-02] MEDS ORDERED: LORazepam 2 mg/ml vial IV PRN (13:30)
--- NOTE | 2021-09-02 14:33 | NUR ---
Was unable to treat patient blood glucose at this time. Patient will resume insulin therapy after dinner.
[2021-09-02 18:00] VITALS: BP 160/89
--- NOTE | 2021-09-02 18:16 | NUR ---
Report received from Matt DAMICO
--- NOTE | 2021-09-02 18:25 | NUR ---
Problems reprioritized. Patient report given, questions answered & plan of care reviewed with Swathi DAMICO.
[2021-09-02] MEDS: magnesium hydroxide 30ml (MOM) UD suspension PO SCH (19:15)
[2021-09-02] MEDS: labetalol 100mg tablet PO SCH (20:35)
[2021-09-02] MEDS: insulin glargine (Lantus) pen - multi-dose SQ SCH (21:45)
[2021-09-03] VITALS: BP 141/82
[2021-09-03] MEDS: normal saline 1000ml 1,000 ML IV SCH ×2 (05:30→15:30)
[2021-09-03 05:58] LABS: BASOPHILS % (AUTO) 0.3 % (0-1); EOSINOPHILS # (AUTO) 0.1 X10'3 (0-0.9); EOSINOPHILS % (AUTO) 0.5 % (0-6); HEMATOCRIT 39.6 % (42.0-52.0); HEMOGLOBIN 13.3 g/dl (14.0-17.9); LYMPHOCYTES # (AUTO) 1.1 X10'3 (1.1-4.8); LYMPHOCYTES % (AUTO) 7.2 % (21-51); MEAN CORPUSCULAR HEMOGLOBIN 31.4 PG (27.0-31.0); MEAN CORPUSCULAR HGB CONC 33.7 g/dL (33.0-36.5); MEAN CORPUSCULAR VOLUME 93.1 FL (78-98); MEAN PLATELET VOLUME 8.4 FL (7.4-10.4); MONOCYTES # (AUTO) 1.6 X10'3 (0-0.9); MONOCYTES % (AUTO) 10.8 % (2-12); NEUTROPHILS # (AUTO) 12.3 X10'3 (1.8-7.7); NEUTROPHILS % (AUTO) 81.2 % (42-75); PLATELET COUNT 292 X10'3 (140-440); RED BLOOD COUNT 4.25 X10'6 (4.70-6.10); RED CELL DISTRIBUTION WIDTH 13.4 % (11.5-14.5); WHITE BLOOD COUNT 15.1 X10'3 (4.5-11.0)
[2021-09-03 06:24] LABS: ALBUMIN 2.2 G/DL (3.4-5.0); ANION GAP 11 (8-16); BLOOD UREA NITROGEN 24 MG/DL (7-18); BUN/CREATININE RATIO 22.6 (5.4-32.0); CALCIUM 8.1 MG/DL (8.5-10.1); CHLORIDE 104 MMOL/L (99-107); CREATININE 1.06 MG/DL (0.60-1.10); GLUCOSE 232 MG/DL (70-104); POTASSIUM 3.5 MMOL/L (3.5-5.1); SODIUM 140 MMOL/L (135-145); TOTAL CARBON DIOXIDE 25.5 MMOL/L (24-32); eGFR 71 ML/MIN
[2021-09-03 07:00] VITALS: BP 153/78
--- NOTE | 2021-09-03 07:17 | NUR ---
Patient in room [facility]. I have received report from Swathi DAMICO and had the opportunity to ask questions and assume patient care.
[2021-09-03] MEDS: K and/or MAG REPLACEMENT MC SCH ×2 (08:00→20:00)
[2021-09-03] MEDS: lactobacillus rhamnosus 10,000 MMU CELLS/CAPSULE PO SCH ×2 (08:34→20:20)
[2021-09-03] MEDS: magnesium hydroxide 30ml (MOM) UD suspension PO SCH ×2 (08:34→20:20)
[2021-09-03] MEDS: docusate sod 100mg capsule PO SCH ×2 (08:34→20:20)
[2021-09-03] MEDS: HYDROchlorothiazide 25mg tablet PO SCH (08:35)
[2021-09-03] MEDS: lisinopril 20mg tablet PO SCH (08:35)
[2021-09-03] MEDS: pantoprazole 40mg Tablet.DR PO SCH (08:35)
[2021-09-03] MEDS: amLODIPine 5mg tablet PO SCH (08:35)
[2021-09-03] MEDS: enoxaparin 40mg/0.4ml syringe SUBCUT SCH (08:36)
[2021-09-03] MEDS: insulin Lispro (HumaLOG) vial - multi-dose SQ SCH ×4 (09:26→21:24)
[2021-09-03] MEDS: piperacillin/tazo 4.5gm/100ml 100 ML IV SCH ×3 (09:29→23:08)
[2021-09-03] MEDS: metoclopramide 5 mg/ml inj IV PRN ×2 (10:12→20:46)
[2021-09-03 11:00] VITALS: BP 147/79
--- NOTE | 2021-09-03 12:12 | NUR ---
DM Consult: Pt s/p open sigmoid colectomy per EMR. Noted pt A1c of 8.9. Pt seen at bedside by RD and safety intern; provided written and verbal DM education and RD contact information. Addendum: 09/03/21 at 1213 by Malick Schofield - Business Professor STONE Amended: Links added. Addendum: 09/03/21 at [address] I have reviewed assessment by safety intern
[2021-09-03 13:56] LABS: ISTAT CL 108 mmol/L (99-107); ISTAT K 3.9 mmol/L (3.5-5.1)
[2021-09-03 13:57] LABS: ISTAT ANION GAP 9 (8-12); ISTAT BUN 19 mg/dL (7-18); ISTAT CREATININE 0.7 mg/dL (0.8-1.3); ISTAT NA 138 mmol/L (135-145); ISTAT TOTAL CO2 21 mmol/L (24-32); ISTAT eGFR > 90 ML/MIN; POC BUN/CREATININE RATIO 27.1 (5.4-32.0)
[2021-09-03 13:58] LABS: ISTAT GLUCOSE 240 mg/dL (70-105); ISTAT HGB 12.6 g/dl (14.0-18.0); ISTAT Hct 37 %PCV (42-52); ISTAT IONIZED CALCIUM 1.16 mmol/L (1.03-1.32)
--- NOTE | 2021-09-03 18:13 | NUR ---
Problems reprioritized. Patient report given, questions answered & plan of care reviewed with MARILEE DAMICO.
[2021-09-03 20:00] VITALS: BP 163/82
[2021-09-03] MEDS: morphine 2 MG/ML inj. syringe IV PRN (20:20)
[2021-09-03] MEDS: labetalol 100mg tablet PO SCH (20:21)
[2021-09-03] MEDS: insulin glargine (Lantus) pen - multi-dose SQ SCH (21:21)
[2021-09-03] MEDS ORDERED: HYDROmorphone inj. 0.5 MG/0.5 ML DISP.SYRIN IV PRN (21:35)
[2021-09-03] MEDS: diatr meglu/diatrizoate 30ml oral sol.-(3 dose) bottle PO SCH (22:22)
[2021-09-04] VITALS: BP 158/74
[2021-09-04] MEDS: normal saline 1000ml 1,000 ML IV SCH ×3 (01:30→21:30)
[2021-09-04] MEDS: metoclopramide 5 mg/ml inj IV PRN (04:32)
--- NOTE | 2021-09-04 06:50 | NUR ---
Patient in room [facility]. I have received report from skyler morrison and had the opportunity to ask questions and assume patient care.
[2021-09-04 06:52] LABS: BASOPHILS # (AUTO) 0.1 X10'3 (0-0.2); BASOPHILS % (AUTO) 0.4 % (0-1); EOSINOPHILS # (AUTO) 0.1 X10'3 (0-0.9); HEMATOCRIT 39.2 % (42.0-52.0); HEMOGLOBIN 13.5 g/dl (14.0-17.9); LYMPHOCYTES % (AUTO) 8.7 % (21-51); MEAN CORPUSCULAR HEMOGLOBIN 31.6 PG (27.0-31.0); MEAN CORPUSCULAR HGB CONC 34.5 g/dL (33.0-36.5); MEAN CORPUSCULAR VOLUME 91.6 FL (78-98); MEAN PLATELET VOLUME 8.4 FL (7.4-10.4); MONOCYTES # (AUTO) 1.6 X10'3 (0-0.9); MONOCYTES % (AUTO) 13.6 % (2-12); NEUTROPHILS # (AUTO) 8.8 X10'3 (1.8-7.7); NEUTROPHILS % (AUTO) 76.3 % (42-75); PLATELET COUNT 312 X10'3 (140-440); RED BLOOD COUNT 4.28 X10'6 (4.70-6.10); RED CELL DISTRIBUTION WIDTH 13.3 % (11.5-14.5); WHITE BLOOD COUNT 11.5 X10'3 (4.5-11.0)
[2021-09-04] MEDS: lactobacillus rhamnosus 10,000 MMU CELLS/CAPSULE PO SCH ×2 (07:04→20:08)
[2021-09-04] MEDS: docusate sod 100mg capsule PO SCH ×2 (07:04→20:08)
[2021-09-04] MEDS: diatr meglu/diatrizoate 30ml oral sol.-(3 dose) bottle PO SCH ×2 (07:19→11:30)
[2021-09-04] MEDS: piperacillin/tazo 4.5gm/100ml 100 ML IV SCH (07:19)
[2021-09-04] MEDS: amLODIPine 5mg tablet PO SCH (07:20)
[2021-09-04] MEDS: HYDROchlorothiazide 25mg tablet PO SCH (07:20)
[2021-09-04] MEDS: pantoprazole 40mg Tablet.DR PO SCH (07:20)
[2021-09-04] MEDS: lisinopril 20mg tablet PO SCH (07:20)
[2021-09-04 07:30] VITALS: BP 168/77
[2021-09-04 07:31] LABS: ALBUMIN 2.2 G/DL (3.4-5.0); ANION GAP 11 (8-16); BLOOD UREA NITROGEN 21 MG/DL (7-18); BUN/CREATININE RATIO 20.8 (5.4-32.0); CALCIUM 7.8 MG/DL (8.5-10.1); CHLORIDE 101 MMOL/L (99-107); CREATININE 1.01 MG/DL (0.60-1.10); GLUCOSE 189 MG/DL (70-104); SODIUM 140 MMOL/L (135-145); TOTAL CARBON DIOXIDE 27.8 MMOL/L (24-32); eGFR 75 ML/MIN
[2021-09-04 07:34] LABS: POTASSIUM 2.8 MMOL/L (3.5-5.1)
--- NOTE | 2021-09-04 07:36 | NUR ---
PAGED DR HOLT RE: PAGER ID: [phone] MESSAGE: NICOLA MENDOZA. CRITICAL K 2.8. NEED PROTOCOL ORDER. SURGICAL SHADIA [id number]
[2021-09-04] MEDS ORDERED: magnesium Cl slow-release 64mg tablet PO PRN (07:40)
[2021-09-04] MEDS ORDERED: magnesium 4gm in 100ml NS 100 ML IV PRN (07:40)
[2021-09-04] MEDS ORDERED: magnesium 2GM in 50ml NS 50 ML IV PRN (07:40)
[2021-09-04] MEDS ORDERED: potassium Cl 20 mEq SR tablet PO PRN (07:40)
[2021-09-04] MEDS: enoxaparin 40mg/0.4ml syringe SUBCUT SCH (08:00)
[2021-09-04] MEDS: K and/or MAG REPLACEMENT MC SCH ×4 (08:00→20:08)
[2021-09-04] MEDS: potassium CL 10mEq/100ml bag 100 ML IV PRN ×7 (08:51→22:52)
[2021-09-04] MEDS: insulin Lispro (HumaLOG) vial - multi-dose SQ SCH ×2 (08:56→17:07)
[2021-09-04 10:16] LABS: MAGNESIUM 2.4 MG/DL (1.5-2.4)
[2021-09-04 11:08] VITALS: BP 150/73
[2021-09-04] MEDS ORDERED: iohexol 300mg/ml 100ml inj. ONE (11:30)
[2021-09-04] MEDS ORDERED: LORazepam 1 MG tablet PO PRN (13:30)
[2021-09-04] MEDS ORDERED: LORazepam 2 mg/ml vial IV PRN (13:30)
--- NOTE | 2021-09-04 13:56 | NUR ---
Received a call from Yolette with [facility] stating that Dr Avilez would like to speak with Dr Mahajan regarding critical findings. [facility] phone number is . Dr Mahajan cell phone number given to [facility] and they will contact him.
--- NOTE | 2021-09-04 14:59 | NUR ---
NOTIFIED DR KRUGER RE: RADIOLOGIST WAS TRYING TO GIVE HIM REPORT RE CRITICAL CT RESULTS. I READ CT IMPRESSION TO DR KRUGER VIA SPEAKER PHONE HE WAS IN THE OR. STATES HE WILL COME BY AND SEE THE PT.
--- NOTE | 2021-09-04 15:48 | NUR ---
Reassessment: Pt now NPO for OR, s/p CT w/ results showing large amount of free air in the abdomen and pelvis per EMR. Pt previously on Clear liquids w/ poor PO intake not meeting needs. Pt at high risk for developing malnutrition if diet cannot be advanced. LBM 08/31 receiving routine and PRN bowel care. Limited nutrition interventions at this time, will continue to monitor Recommendations: 1) Advance to low fiber CHO controlled diet as medically indicated 2) Monitor need for ONS/additional protein with diet advancement 3) Bowel care per MD 4) Scaled weight this admit; weekly scaled weights thereafter 5) Consider PN if pt unable to have PO diet Addendum: 09/04/21 at [address] Amended: Links added.
[2021-09-04] MEDS: piperacillin/tazo 3.375gm/50ml 50 ML IV SCH ×2 (16:28→23:46)
[2021-09-04 18:00] VITALS: BP 164/100
--- NOTE | 2021-09-04 18:18 | NUR ---
Problems reprioritized. Patient report given, questions answered & plan of care reviewed with MARILEE DAMICO.
[2021-09-04] MEDS: labetalol 100mg tablet PO SCH (20:08)
[2021-09-04] MEDS: insulin glargine (Lantus) pen - multi-dose SQ SCH (23:03)
[2021-09-05] VITALS: BP 158/84
[2021-09-05 05:30] VITALS: BP 156/79
[2021-09-05 06:35] LABS: ALBUMIN 2.1 G/DL (3.4-5.0); ANION GAP 10 (8-16); BLOOD UREA NITROGEN 22 MG/DL (7-18); BUN/CREATININE RATIO 21.6 (5.4-32.0); CALCIUM 7.5 MG/DL (8.5-10.1); CHLORIDE 104 MMOL/L (99-107); CREATININE 1.02 MG/DL (0.60-1.10); GLUCOSE 159 MG/DL (70-104); POTASSIUM 3.2 MMOL/L (3.5-5.1); SODIUM 140 MMOL/L (135-145); TOTAL CARBON DIOXIDE 25.7 MMOL/L (24-32); eGFR 74 ML/MIN
[2021-09-05 06:39] LABS: BASOPHILS % (AUTO) 0.1 % (0-1); EOSINOPHILS # (AUTO) 0.1 X10'3 (0-0.9); HEMATOCRIT 39.4 % (42.0-52.0); HEMOGLOBIN 13.6 g/dl (14.0-17.9); LYMPHOCYTES # (AUTO) 0.9 X10'3 (1.1-4.8); LYMPHOCYTES % (AUTO) 6.6 % (21-51); MEAN CORPUSCULAR HEMOGLOBIN 31.7 PG (27.0-31.0); MEAN CORPUSCULAR HGB CONC 34.5 g/dL (33.0-36.5); MEAN PLATELET VOLUME 8.1 FL (7.4-10.4); MONOCYTES # (AUTO) 1.5 X10'3 (0-0.9); MONOCYTES % (AUTO) 10.6 % (2-12); NEUTROPHILS # (AUTO) 11.7 X10'3 (1.8-7.7); NEUTROPHILS % (AUTO) 81.7 % (42-75); PLATELET COUNT 317 X10'3 (140-440); RED BLOOD COUNT 4.28 X10'6 (4.70-6.10); RED CELL DISTRIBUTION WIDTH 13.1 % (11.5-14.5); WHITE BLOOD COUNT 14.3 X10'3 (4.5-11.0)
[2021-09-05 07:30] VITALS: BP 157/82
[2021-09-05] MEDS: K and/or MAG REPLACEMENT MC SCH ×4 (07:35→20:00)
[2021-09-05] MEDS: potassium Cl 20 mEq SR tablet PO PRN (07:40)
[2021-09-05] MEDS: lisinopril 20mg tablet PO SCH (07:40)
[2021-09-05] MEDS: pantoprazole 40mg Tablet.DR PO SCH (07:40)
[2021-09-05] MEDS: folic acid 1mg tablet PO SCH (07:40)
[2021-09-05] MEDS: enoxaparin 40mg/0.4ml syringe SUBCUT SCH (07:41)
[2021-09-05] MEDS: thiamine 100mg tablet PO SCH (07:41)
[2021-09-05] MEDS: lactobacillus rhamnosus 10,000 MMU CELLS/CAPSULE PO SCH ×2 (07:41→20:11)
[2021-09-05] MEDS: amLODIPine 5mg tablet PO SCH (07:41)
[2021-09-05] MEDS: docusate sod 100mg capsule PO SCH ×2 (07:41→20:11)
[2021-09-05] MEDS: HYDROchlorothiazide 25mg tablet PO SCH (07:41)
[2021-09-05] MEDS: piperacillin/tazo 3.375gm/50ml 50 ML IV SCH ×3 (07:41→23:10)
[2021-09-05] MEDS: normal saline 1000ml 1,000 ML IV SCH ×2 (07:51→17:24)
[2021-09-05] MEDS: insulin Lispro (HumaLOG) vial - multi-dose SQ SCH ×2 (07:54→13:22)
[2021-09-05 13:46] VITALS: BP 159/69
[2021-09-05] MEDS: potassium CL 10mEq/100ml bag 100 ML IV PRN ×2 (15:14→17:24)
--- NOTE | 2021-09-05 18:27 | NUR ---
Problems reprioritized. Patient report given, questions answered & plan of care reviewed with MARILEE DAMICO.
[2021-09-05] MEDS: labetalol 100mg tablet PO SCH (20:11)
[2021-09-05] MEDS: insulin glargine (Lantus) pen - multi-dose SQ SCH (22:35)
[2021-09-06] VITALS: BP 169/90
[2021-09-06] MEDS: normal saline 1000ml 1,000 ML IV SCH ×3 (04:53→16:33)
[2021-09-06 07:00] VITALS: BP 150/80
--- NOTE | 2021-09-06 07:07 | NUR ---
Patient in room [facility]. I have received report from MARGAUX HUNT and had the opportunity to ask questions and assume patient care.
[2021-09-06] MEDS: lactobacillus rhamnosus 10,000 MMU CELLS/CAPSULE PO SCH ×2 (07:47→20:07)
[2021-09-06] MEDS: pantoprazole 40mg Tablet.DR PO SCH (07:47)
[2021-09-06] MEDS: lisinopril 20mg tablet PO SCH (07:47)
[2021-09-06] MEDS: thiamine 100mg tablet PO SCH (07:47)
[2021-09-06] MEDS: folic acid 1mg tablet PO SCH (07:48)
[2021-09-06] MEDS: docusate sod 100mg capsule PO SCH ×2 (07:48→20:06)
[2021-09-06] MEDS: amLODIPine 5mg tablet PO SCH (07:48)
[2021-09-06] MEDS: HYDROchlorothiazide 25mg tablet PO SCH (07:48)
[2021-09-06] MEDS: enoxaparin 40mg/0.4ml syringe SUBCUT SCH (07:49)
[2021-09-06] MEDS: piperacillin/tazo 3.375gm/50ml 50 ML IV SCH ×3 (08:00→23:22)
[2021-09-06] MEDS: K and/or MAG REPLACEMENT MC SCH ×4 (08:00→20:15)
--- NOTE | 2021-09-06 10:58 | NUR ---
Reassessment: Pt has been NPO for 7 days now, w/ persistent ileus per MD note. Had NGT for suction though now clamped and has been advanced to Clear liquid diet today. Recommend continuing to advance to Low fiber/Carb controlled diet as medically indicated. Given inadequate intake for 7 days and mild muscle weakness, pt meets criteria for malnutrition, MD notified. LB 08/31 receiving routine bowel care. Will continue to monitor. Recommendations: 1) Advance to low fiber CHO controlled diet as medically indicated 2) Monitor need for ONS/additional protein with diet advancement 3) Bowel care per MD 4) Scaled weight this admit; weekly scaled weights thereafter 5) Consider PN if pt unable to have PO diet Addendum: 09/06/21 at [address] Amended: Links added.
[2021-09-06 11:00] VITALS: BP 152/75
--- NOTE | 2021-09-06 18:34 | NUR ---
Problems reprioritized. Patient report given, questions answered & plan of care reviewed with MARGAUX HUNT.
[2021-09-06 20:00] VITALS: BP 155/82
[2021-09-06] MEDS: magnesium hydroxide 30ml (MOM) UD suspension PO SCH (20:05)
[2021-09-06] MEDS: labetalol 100mg tablet PO SCH (20:07)
[2021-09-06] MEDS: potassium Cl 20 mEq SR tablet PO PRN (20:07)
[2021-09-06] MEDS: insulin Lispro (HumaLOG) vial - multi-dose SQ SCH (20:21)
[2021-09-06] MEDS: insulin glargine (Lantus) pen - multi-dose SQ SCH (22:24)
[2021-09-07] VITALS: BP 140/68
--- NOTE | 2021-09-07 06:53 | NUR ---
Hand off report given to clarissa DAMICO
[2021-09-07 07:00] VITALS: BP 129/68
[2021-09-07] MEDS: normal saline 1000ml 1,000 ML IV SCH (07:55)
[2021-09-07] MEDS: K and/or MAG REPLACEMENT MC SCH ×4 (08:00→19:29)
[2021-09-07] MEDS: magnesium hydroxide 30ml (MOM) UD suspension PO SCH ×2 (08:00→19:28)
[2021-09-07] MEDS: piperacillin/tazo 3.375gm/50ml 50 ML IV SCH ×2 (08:34→16:46)
[2021-09-07] MEDS: amLODIPine 5mg tablet PO SCH (08:48)
[2021-09-07] MEDS: lactobacillus rhamnosus 10,000 MMU CELLS/CAPSULE PO SCH ×2 (08:49→19:20)
[2021-09-07] MEDS: folic acid 1mg tablet PO SCH (08:51)
[2021-09-07] MEDS: lisinopril 20mg tablet PO SCH (08:52)
[2021-09-07] MEDS: pantoprazole 40mg Tablet.DR PO SCH (08:54)
[2021-09-07] MEDS: docusate sod 100mg capsule PO SCH ×2 (08:54→19:28)
[2021-09-07] MEDS: HYDROchlorothiazide 25mg tablet PO SCH (08:55)
[2021-09-07] MEDS: thiamine 100mg tablet PO SCH (08:56)
[2021-09-07] MEDS: enoxaparin 40mg/0.4ml syringe SUBCUT SCH (09:02)
[2021-09-07 12:55] LABS: BASOPHILS % (AUTO) 0.2 % (0-1); EOSINOPHILS # (AUTO) 0.2 X10'3 (0-0.9); EOSINOPHILS % (AUTO) 1.6 % (0-6); HEMATOCRIT 40.1 % (42.0-52.0); HEMOGLOBIN 13.7 g/dl (14.0-17.9); LYMPHOCYTES % (AUTO) 6.9 % (21-51); MEAN CORPUSCULAR HEMOGLOBIN 31.5 PG (27.0-31.0); MEAN CORPUSCULAR HGB CONC 34.1 g/dL (33.0-36.5); MEAN CORPUSCULAR VOLUME 92.3 FL (78-98); MEAN PLATELET VOLUME 8.2 FL (7.4-10.4); MONOCYTES # (AUTO) 1.2 X10'3 (0-0.9); MONOCYTES % (AUTO) 8.7 % (2-12); NEUTROPHILS # (AUTO) 11.4 X10'3 (1.8-7.7); NEUTROPHILS % (AUTO) 82.6 % (42-75); PLATELET COUNT 355 X10'3 (140-440); RED BLOOD COUNT 4.34 X10'6 (4.70-6.10); RED CELL DISTRIBUTION WIDTH 13.1 % (11.5-14.5); WHITE BLOOD COUNT 13.8 X10'3 (4.5-11.0)
--- NOTE | 2021-09-07 18:28 | NUR ---
Gave report to Erica DAMICO.
[2021-09-07] MEDS: insulin Lispro (HumaLOG) vial - multi-dose SQ SCH (18:59)
[2021-09-07 20:00] VITALS: BP 128/74
[2021-09-07] MEDS: labetalol 100mg tablet PO SCH (21:52)
[2021-09-07] MEDS: insulin glargine (Lantus) pen - multi-dose SQ SCH (22:06)
[2021-09-08] VITALS: BP 142/92
[2021-09-08] MEDS: piperacillin/tazo 3.375gm/50ml 50 ML IV SCH ×3 (00:10→15:17)
[2021-09-08 06:30] LABS: ALANINE AMINOTRANSFERASE 36 U/L (12-78); ALBUMIN/GLOBULIN RATIO 0.5 (1.1-1.5); ALKALINE PHOSPHATASE 53 IU/L (46-116); ANION GAP 11 (8-16); ASPARTATE AMINO TRANSFERASE 19 U/L (10-37); BILIRUBIN,TOTAL 0.7 MG/DL (0.1-1.0); BLOOD UREA NITROGEN 14 MG/DL (7-18); BUN/CREATININE RATIO 13.3 (5.4-32.0); CHLORIDE 103 MMOL/L (99-107); CREATININE 1.05 MG/DL (0.60-1.10); GLUCOSE 162 MG/DL (70-104); POTASSIUM 3.1 MMOL/L (3.5-5.1); SODIUM 140 MMOL/L (135-145); TOTAL CARBON DIOXIDE 25.9 MMOL/L (24-32); TOTAL PROTEIN 5.7 G/DL (6.4-8.2); eGFR 71 ML/MIN
[2021-09-08 06:33] LABS: BASOPHILS % (AUTO) 0.3 % (0-1); EOSINOPHILS # (AUTO) 0.2 X10'3 (0-0.9); EOSINOPHILS % (AUTO) 1.8 % (0-6); HEMATOCRIT 38.1 % (42.0-52.0); HEMOGLOBIN 13.2 g/dl (14.0-17.9); LYMPHOCYTES # (AUTO) 1.1 X10'3 (1.1-4.8); LYMPHOCYTES % (AUTO) 8.4 % (21-51); MEAN CORPUSCULAR HEMOGLOBIN 31.7 PG (27.0-31.0); MEAN CORPUSCULAR HGB CONC 34.7 g/dL (33.0-36.5); MEAN CORPUSCULAR VOLUME 91.3 FL (78-98); MEAN PLATELET VOLUME 8.4 FL (7.4-10.4); MONOCYTES # (AUTO) 1.1 X10'3 (0-0.9); NEUTROPHILS # (AUTO) 10.2 X10'3 (1.8-7.7); NEUTROPHILS % (AUTO) 80.5 % (42-75); PLATELET COUNT 360 X10'3 (140-440); RED BLOOD COUNT 4.18 X10'6 (4.70-6.10); RED CELL DISTRIBUTION WIDTH 13.3 % (11.5-14.5); WHITE BLOOD COUNT 12.7 X10'3 (4.5-11.0)
--- NOTE | 2021-09-08 06:45 | NUR ---
Problems reprioritized. Patient report given, questions answered & plan of care reviewed with MARGAUX Lawson.
[2021-09-08 07:00] VITALS: BP 142/73
[2021-09-08] MEDS ORDERED: potassium Cl 20 mEq SR tablet PO PRN (07:15)
[2021-09-08] MEDS ORDERED: potassium CL 10mEq/100ml bag 100 ML IV PRN (07:15)
[2021-09-08] MEDS ORDERED: POTASSIUM BICARB 20meq eff tab 20 MEQ TABLET.EFF PO PRN (07:15)
[2021-09-08] MEDS ORDERED: magnesium 2GM in 50ml NS 50 ML IV PRN (07:15)
[2021-09-08] MEDS ORDERED: magnesium Cl slow-release 64mg tablet PO PRN (07:15)
[2021-09-08] MEDS ORDERED: magnesium 4gm in 100ml NS 100 ML IV PRN (07:15)
[2021-09-08 07:37] LABS: MAGNESIUM 2.4 MG/DL (1.5-2.4)
--- NOTE | 2021-09-08 07:42 | NUR ---
Clayton rounding for Keyshawn today. Aware of gaps in incision. States that should be how incision looks, however drainage still looking purulent. Pt. may need IV ATB for a few more days in hospital especially since pt. diabetic and alcohol drinker at home in [place].
[2021-09-08] MEDS: K and/or MAG REPLACEMENT MC SCH ×2 (08:00→20:00)
[2021-09-08] MEDS: docusate sod 100mg capsule PO SCH ×2 (08:00→20:06)
[2021-09-08] MEDS: magnesium hydroxide 30ml (MOM) UD suspension PO SCH ×2 (08:00→20:01)
[2021-09-08] MEDS: lactobacillus rhamnosus 10,000 MMU CELLS/CAPSULE PO SCH ×2 (09:08→20:01)
[2021-09-08] MEDS: lisinopril 20mg tablet PO SCH (09:08)
[2021-09-08] MEDS: folic acid 1mg tablet PO SCH (09:09)
[2021-09-08] MEDS: thiamine 100mg tablet PO SCH (09:09)
[2021-09-08] MEDS: pantoprazole 40mg Tablet.DR PO SCH (09:09)
[2021-09-08] MEDS: POTASSIUM BICARB 20meq eff tab 20 MEQ TABLET.EFF PO PRN ×3 (09:09→20:01)
[2021-09-08] MEDS: HYDROchlorothiazide 25mg tablet PO SCH (09:11)
[2021-09-08] MEDS: enoxaparin 40mg/0.4ml syringe SUBCUT SCH (09:11)
[2021-09-08] MEDS: amLODIPine 5mg tablet PO SCH (09:11)
[2021-09-08] MEDS: insulin Lispro (HumaLOG) vial - multi-dose SQ SCH ×3 (09:17→20:03)
[2021-09-08 11:00] VITALS: BP 154/84
--- NOTE | 2021-09-08 13:40 | NUR ---
Reassessment: Patient's diet has been advanced to SB6 CHO controlled diet and pt eating well with average 75% PO intake first three meals since diet advancement. Recommend the addition of low fiber diet in view of recent GI surgery. LBM 2/. Will continue to follow and monitor need for nutrition intervention pending further trends in PO intake. Recommendations: 1) Continue CHO controlled diet; consider adding low fiber diet in view of recent GI surgery 2) Monitor need for ONS/additional protein pending further trends in PO intake 3) Bowel care per MD 4) Scaled weight this admit; weekly scaled weights thereafter Addendum: 09/08/21 at [address] Amended: Links added.
--- NOTE | 2021-09-08 17:51 | NUR ---
cLARIFIED WITH Carly IF HE WANTED guido REMOVED. GUIDO HAVE NO OUTPUT. MD LOUIS.
[2021-09-08 18:00] VITALS: BP 138/72
--- NOTE | 2021-09-08 18:11 | NUR ---
GAVE REPORT TO PRUDENCE RN
--- NOTE | 2021-09-08 18:54 | NUR ---
Patient in room [facility]. I have received report from TINO DAMICO and had the opportunity to ask questions and assume patient care.
[2021-09-08] MEDS: labetalol 100mg tablet PO SCH (20:06)
[2021-09-08] MEDS: insulin glargine (Lantus) pen - multi-dose SQ SCH (21:56)
[2021-09-09] VITALS: BP 142/73
[2021-09-09] MEDS: piperacillin/tazo 3.375gm/50ml 50 ML IV SCH ×4 (00:49→23:35)
--- NOTE | 2021-09-09 06:23 | NUR ---
Problems reprioritized. Patient report given, questions answered & plan of care reviewed with TINO DAMICO.
[2021-09-09 07:07] LABS: BASOPHILS % (AUTO) 0.4 % (0-1); EOSINOPHILS # (AUTO) 0.2 X10'3 (0-0.9); EOSINOPHILS % (AUTO) 1.9 % (0-6); HEMATOCRIT 38.4 % (42.0-52.0); HEMOGLOBIN 13.3 g/dl (14.0-17.9); LYMPHOCYTES # (AUTO) 1.1 X10'3 (1.1-4.8); LYMPHOCYTES % (AUTO) 9.5 % (21-51); MEAN CORPUSCULAR HEMOGLOBIN 31.6 PG (27.0-31.0); MEAN CORPUSCULAR HGB CONC 34.6 g/dL (33.0-36.5); MEAN CORPUSCULAR VOLUME 91.5 FL (78-98); MEAN PLATELET VOLUME 8.2 FL (7.4-10.4); MONOCYTES # (AUTO) 1.1 X10'3 (0-0.9); MONOCYTES % (AUTO) 9.3 % (2-12); NEUTROPHILS # (AUTO) 9.5 X10'3 (1.8-7.7); NEUTROPHILS % (AUTO) 78.9 % (42-75); PLATELET COUNT 368 X10'3 (140-440); RED CELL DISTRIBUTION WIDTH 13.3 % (11.5-14.5)
[2021-09-09 07:20] LABS: ALANINE AMINOTRANSFERASE 36 U/L (12-78); ALBUMIN 2.1 G/DL (3.4-5.0); ALBUMIN/GLOBULIN RATIO 0.5 (1.1-1.5); ALKALINE PHOSPHATASE 54 IU/L (46-116); ANION GAP 9 (8-16); ASPARTATE AMINO TRANSFERASE 22 U/L (10-37); BILIRUBIN,TOTAL 0.6 MG/DL (0.1-1.0); BLOOD UREA NITROGEN 16 MG/DL (7-18); BUN/CREATININE RATIO 15.1 (5.4-32.0); CHLORIDE 103 MMOL/L (99-107); CREATININE 1.06 MG/DL (0.60-1.10); GLUCOSE 169 MG/DL (70-104); MAGNESIUM 2.4 MG/DL (1.5-2.4); POTASSIUM 3.1 MMOL/L (3.5-5.1); SODIUM 139 MMOL/L (135-145); TOTAL CARBON DIOXIDE 27.2 MMOL/L (24-32); eGFR 71 ML/MIN
[2021-09-09 08:00] VITALS: BP 134/82
[2021-09-09] MEDS: K and/or MAG REPLACEMENT MC SCH ×2 (08:00→20:00)
[2021-09-09] MEDS: folic acid 1mg tablet PO SCH (09:15)
[2021-09-09] MEDS: docusate sod 100mg capsule PO SCH ×2 (09:15→20:56)
[2021-09-09] MEDS: lactobacillus rhamnosus 10,000 MMU CELLS/CAPSULE PO SCH ×2 (09:15→20:56)
[2021-09-09] MEDS: thiamine 100mg tablet PO SCH (09:15)
[2021-09-09] MEDS: pantoprazole 40mg Tablet.DR PO SCH (09:15)
[2021-09-09] MEDS: magnesium hydroxide 30ml (MOM) UD suspension PO SCH ×2 (09:16→20:00)
[2021-09-09] MEDS: HYDROchlorothiazide 25mg tablet PO SCH (09:16)
[2021-09-09] MEDS: lisinopril 20mg tablet PO SCH (09:16)
[2021-09-09] MEDS: amLODIPine 5mg tablet PO SCH (09:16)
[2021-09-09] MEDS: enoxaparin 40mg/0.4ml syringe SUBCUT SCH (09:17)
[2021-09-09] MEDS: POTASSIUM BICARB 20meq eff tab 20 MEQ TABLET.EFF PO PRN ×2 (09:22→13:35)
[2021-09-09] MEDS: insulin Lispro (HumaLOG) vial - multi-dose SQ SCH ×3 (09:32→20:15)
[2021-09-09 12:51] VITALS: BP 137/73
[2021-09-09 18:00] VITALS: BP 125/60
--- NOTE | 2021-09-09 18:23 | NUR ---
Gave report to Vincent DAMICO.
[2021-09-09 18:50] VITALS: BP 134/74
[2021-09-09] MEDS: labetalol 100mg tablet PO SCH (22:02)
[2021-09-09] MEDS: insulin glargine (Lantus) pen - multi-dose SQ SCH (22:11)
[2021-09-10 06:23] LABS: BASOPHILS # (AUTO) 0.1 X10'3 (0-0.2); BASOPHILS % (AUTO) 0.5 % (0-1); EOSINOPHILS # (AUTO) 0.2 X10'3 (0-0.9); EOSINOPHILS % (AUTO) 1.6 % (0-6); HEMOGLOBIN 13.4 g/dl (14.0-17.9); LYMPHOCYTES # (AUTO) 1.4 X10'3 (1.1-4.8); LYMPHOCYTES % (AUTO) 9.8 % (21-51); MEAN CORPUSCULAR HEMOGLOBIN 31.5 PG (27.0-31.0); MEAN CORPUSCULAR HGB CONC 34.5 g/dL (33.0-36.5); MEAN CORPUSCULAR VOLUME 91.5 FL (78-98); MEAN PLATELET VOLUME 7.9 FL (7.4-10.4); MONOCYTES # (AUTO) 1.3 X10'3 (0-0.9); MONOCYTES % (AUTO) 9.2 % (2-12); NEUTROPHILS # (AUTO) 11.5 X10'3 (1.8-7.7); NEUTROPHILS % (AUTO) 78.9 % (42-75); PLATELET COUNT 410 X10'3 (140-440); RED BLOOD COUNT 4.27 X10'6 (4.70-6.10); RED CELL DISTRIBUTION WIDTH 13.4 % (11.5-14.5); WHITE BLOOD COUNT 14.6 X10'3 (4.5-11.0)
[2021-09-10 06:53] LABS: ALANINE AMINOTRANSFERASE 37 U/L (12-78); ALBUMIN 2.3 G/DL (3.4-5.0); ALBUMIN/GLOBULIN RATIO 0.6 (1.1-1.5); ALKALINE PHOSPHATASE 58 IU/L (46-116); ANION GAP 10 (8-16); ASPARTATE AMINO TRANSFERASE 20 U/L (10-37); BILIRUBIN,TOTAL 0.6 MG/DL (0.1-1.0); BLOOD UREA NITROGEN 16 MG/DL (7-18); BUN/CREATININE RATIO 14.8 (5.4-32.0); CALCIUM 7.7 MG/DL (8.5-10.1); CHLORIDE 102 MMOL/L (99-107); CREATININE 1.08 MG/DL (0.60-1.10); GLUCOSE 130 MG/DL (70-104); MAGNESIUM 2.4 MG/DL (1.5-2.4); POTASSIUM 3.5 MMOL/L (3.5-5.1); SODIUM 138 MMOL/L (135-145); TOTAL PROTEIN 6.4 G/DL (6.4-8.2); eGFR 69 ML/MIN
[2021-09-10 07:00] VITALS: BP 146/75
[2021-09-10] MEDS: enoxaparin 40mg/0.4ml syringe SUBCUT SCH (07:51)
[2021-09-10] MEDS: magnesium hydroxide 30ml (MOM) UD suspension PO SCH ×2 (07:52→07:55)
[2021-09-10] MEDS: pantoprazole 40mg Tablet.DR PO SCH (07:52)
[2021-09-10] MEDS: docusate sod 100mg capsule PO SCH ×2 (07:52→20:09)
[2021-09-10] MEDS: lisinopril 20mg tablet PO SCH (07:52)
[2021-09-10] MEDS: piperacillin/tazo 3.375gm/50ml 50 ML IV SCH ×2 (07:52→16:00)
[2021-09-10] MEDS: lactobacillus rhamnosus 10,000 MMU CELLS/CAPSULE PO SCH ×2 (07:52→20:10)
[2021-09-10] MEDS: thiamine 100mg tablet PO SCH (07:52)
[2021-09-10] MEDS: amLODIPine 5mg tablet PO SCH (07:52)
[2021-09-10] MEDS: folic acid 1mg tablet PO SCH (07:52)
[2021-09-10] MEDS: HYDROchlorothiazide 25mg tablet PO SCH (07:52)
[2021-09-10] MEDS: K and/or MAG REPLACEMENT MC SCH ×2 (07:53→20:00)
[2021-09-10] MEDS: insulin Lispro (HumaLOG) vial - multi-dose SQ SCH ×3 (09:56→19:54)
[2021-09-10 11:00] VITALS: BP 128/55
[2021-09-10] MEDS: ondansetron/PF 4mg/2ml inj IV PRN (13:54)
[2021-09-10 18:50] VITALS: BP 109/62
[2021-09-10] MEDS: diatr meglu/diatrizoate 30ml oral sol.-(3 dose) bottle PO SCH (21:08)
[2021-09-10] MEDS: labetalol 100mg tablet PO SCH (21:08)
[2021-09-10] MEDS: insulin glargine (Lantus) pen - multi-dose SQ SCH (22:42)
[2021-09-11] VITALS: BP 131/64
[2021-09-11] MEDS: piperacillin/tazo 3.375gm/50ml 50 ML IV SCH ×3 (01:09→16:16)
[2021-09-11 05:57] LABS: BASOPHILS % (AUTO) 0.2 % (0-1); EOSINOPHILS # (AUTO) 0.1 X10'3 (0-0.9); EOSINOPHILS % (AUTO) 0.5 % (0-6); HEMATOCRIT 36.3 % (42.0-52.0); HEMOGLOBIN 12.7 g/dl (14.0-17.9); LYMPHOCYTES # (AUTO) 1.3 X10'3 (1.1-4.8); LYMPHOCYTES % (AUTO) 7.8 % (21-51); MEAN CORPUSCULAR HEMOGLOBIN 31.6 PG (27.0-31.0); MEAN CORPUSCULAR HGB CONC 34.9 g/dL (33.0-36.5); MEAN CORPUSCULAR VOLUME 90.5 FL (78-98); MEAN PLATELET VOLUME 7.7 FL (7.4-10.4); MONOCYTES % (AUTO) 12.2 % (2-12); NEUTROPHILS # (AUTO) 12.7 X10'3 (1.8-7.7); NEUTROPHILS % (AUTO) 79.3 % (42-75); PLATELET COUNT 413 X10'3 (140-440); RED BLOOD COUNT 4.01 X10'6 (4.70-6.10); RED CELL DISTRIBUTION WIDTH 13.2 % (11.5-14.5)
[2021-09-11 06:42] LABS: ALANINE AMINOTRANSFERASE 30 U/L (12-78); ALBUMIN 2.3 G/DL (3.4-5.0); ALBUMIN/GLOBULIN RATIO 0.6 (1.1-1.5); ALKALINE PHOSPHATASE 58 IU/L (46-116); ANION GAP 9 (8-16); ASPARTATE AMINO TRANSFERASE 14 U/L (10-37); BILIRUBIN,TOTAL 0.6 MG/DL (0.1-1.0); BLOOD UREA NITROGEN 19 MG/DL (7-18); BUN/CREATININE RATIO 16.1 (5.4-32.0); CALCIUM 7.9 MG/DL (8.5-10.1); CHLORIDE 101 MMOL/L (99-107); CREATININE 1.18 MG/DL (0.60-1.10); GLUCOSE 168 MG/DL (70-104); MAGNESIUM 2.3 MG/DL (1.5-2.4); POTASSIUM 3.9 MMOL/L (3.5-5.1); SODIUM 136 MMOL/L (135-145); TOTAL CARBON DIOXIDE 26.1 MMOL/L (24-32); TOTAL PROTEIN 6.4 G/DL (6.4-8.2); eGFR 62 ML/MIN
--- NOTE | 2021-09-11 06:45 | NUR ---
Problems reprioritized. Patient report given, questions answered & plan of care reviewed with MONIQUE. Addendum: 09/11/21 at 0645 by Heladio Hawkins RN Amended: Links added.
[2021-09-11 07:00] VITALS: BP 115/70
[2021-09-11] MEDS: magnesium hydroxide 30ml (MOM) UD suspension PO SCH ×3 (08:00→20:00)
[2021-09-11] MEDS: diatr meglu/diatrizoate 30ml oral sol.-(3 dose) bottle PO SCH ×2 (08:45→21:00)
[2021-09-11] MEDS: pantoprazole 40mg Tablet.DR PO SCH (08:46)
[2021-09-11] MEDS: lactobacillus rhamnosus 10,000 MMU CELLS/CAPSULE PO SCH ×2 (08:46→22:40)
[2021-09-11] MEDS: lisinopril 20mg tablet PO SCH (08:46)
[2021-09-11] MEDS: docusate sod 100mg capsule PO SCH ×2 (08:46→20:00)
[2021-09-11] MEDS: folic acid 1mg tablet PO SCH (08:46)
[2021-09-11] MEDS: enoxaparin 40mg/0.4ml syringe SUBCUT SCH (08:46)
[2021-09-11] MEDS: thiamine 100mg tablet PO SCH (08:47)
[2021-09-11] MEDS: HYDROchlorothiazide 25mg tablet PO SCH (08:47)
[2021-09-11] MEDS: amLODIPine 5mg tablet PO SCH (08:47)
[2021-09-11] MEDS: K and/or MAG REPLACEMENT MC SCH ×2 (08:48→20:00)
[2021-09-11] MEDS ORDERED: iohexol 300mg/ml 100ml inj. ONE (09:50)
--- NOTE | 2021-09-11 11:21 | NUR ---
Yolette with [facility] requesting to have Dr Carlson call and speak with Dr Cook on Critical findings from CT. [facility] phone number is . Message given to Dr Carlson
[2021-09-11 12:00] VITALS: BP 115/64
[2021-09-11] MEDS ORDERED: diatr meglu/diatrizoate 30ml oral sol.-(3 dose) bottle ONE (13:49)
[2021-09-11] MEDS: ringers solution, lacted 1,000 ML IV SCH (16:16)
[2021-09-11] MEDS ORDERED: PEG 3350/Na sulf,bicarb,Cl/KCl oral sol 4 liter bottle PO ONE (18:00)
--- NOTE | 2021-09-11 18:38 | NUR ---
Patient in room [facility]. I have received report from MARGAUX Diaz and had the opportunity to ask questions and assume patient care.
[2021-09-11] MEDS: insulin Lispro (HumaLOG) vial - multi-dose SQ SCH (19:01)
[2021-09-11 20:00] VITALS: BP 115/66
[2021-09-11] MEDS: labetalol 100mg tablet PO SCH (21:58)
[2021-09-11] MEDS: insulin glargine (Lantus) pen - multi-dose SQ SCH (22:20)
--- NOTE | 2021-09-11 22:36 | NUR ---
Spoke with Keila Kaur, RN. He said to hold this patient's colace and milk of magnesia but to give him his Golyetly.
[2021-09-11] MEDS: dextrose ORAL solution 15 GM/59 ML bottle PO PRN (23:54)
--- NOTE | 2021-09-11 23:55 | NUR ---
Pt was diaphoretic checked blood glucose was 70 gave 15 mg glucose shot and will recheck in 15 minutes.
[2021-09-12] VITALS (14 sets, daily range): BP systolic 99–159; BP diastolic 51–78
[2021-09-12] MEDS: piperacillin/tazo 3.375gm/50ml 50 ML IV SCH ×3 (00:06→17:39)
--- NOTE | 2021-09-12 00:16 | NUR ---
Pt now has a blood glucose of 99 and is no longer diaphoretic.
[2021-09-12] MEDS: ringers solution, lacted 1,000 ML IV SCH ×2 (01:16→17:39)
--- NOTE | 2021-09-12 02:14 | NUR ---
Pt was diaphoretic again but B/G was 135 and temp was 97.6. Pt had several blankets on, removed one at pt request. Will continue to monitor.
[2021-09-12 06:14] LABS: BASOPHILS # (AUTO) 0.1 X10'3 (0-0.2); BASOPHILS % (AUTO) 0.5 % (0-1); EOSINOPHILS # (AUTO) 0.2 X10'3 (0-0.9); EOSINOPHILS % (AUTO) 1.4 % (0-6); HEMATOCRIT 37.4 % (42.0-52.0); HEMOGLOBIN 12.6 g/dl (14.0-17.9); LYMPHOCYTES # (AUTO) 1.4 X10'3 (1.1-4.8); LYMPHOCYTES % (AUTO) 12.8 % (21-51); MEAN CORPUSCULAR HEMOGLOBIN 31.1 PG (27.0-31.0); MEAN CORPUSCULAR HGB CONC 33.7 g/dL (33.0-36.5); MEAN CORPUSCULAR VOLUME 92.1 FL (78-98); MEAN PLATELET VOLUME 7.7 FL (7.4-10.4); MONOCYTES # (AUTO) 1.5 X10'3 (0-0.9); MONOCYTES % (AUTO) 13.1 % (2-12); NEUTROPHILS % (AUTO) 72.2 % (42-75); PLATELET COUNT 440 X10'3 (140-440); RED BLOOD COUNT 4.06 X10'6 (4.70-6.10); RED CELL DISTRIBUTION WIDTH 13.3 % (11.5-14.5); WHITE BLOOD COUNT 11.1 X10'3 (4.5-11.0)
[2021-09-12 06:29] LABS: ALANINE AMINOTRANSFERASE 31 U/L (12-78); ALBUMIN 2.2 G/DL (3.4-5.0); ALBUMIN/GLOBULIN RATIO 0.5 (1.1-1.5); ALKALINE PHOSPHATASE 55 IU/L (46-116); ANION GAP 7 (8-16); ASPARTATE AMINO TRANSFERASE 15 U/L (10-37); BILIRUBIN,TOTAL 0.5 MG/DL (0.1-1.0); BLOOD UREA NITROGEN 17 MG/DL (7-18); BUN/CREATININE RATIO 13.8 (5.4-32.0); CHLORIDE 101 MMOL/L (99-107); CREATININE 1.23 MG/DL (0.60-1.10); GLUCOSE 142 MG/DL (70-104); MAGNESIUM 2.3 MG/DL (1.5-2.4); POTASSIUM 3.8 MMOL/L (3.5-5.1); SODIUM 137 MMOL/L (135-145); TOTAL CARBON DIOXIDE 28.6 MMOL/L (24-32); TOTAL PROTEIN 6.3 G/DL (6.4-8.2); eGFR 59 ML/MIN
--- NOTE | 2021-09-12 06:30 | NUR ---
Problems reprioritized. Patient report given, questions answered & plan of care reviewed with MARGAUX Bojorquez.
[2021-09-12] MEDS: pantoprazole 40mg Tablet.DR PO SCH (07:59)
[2021-09-12] MEDS: amLODIPine 5mg tablet PO SCH (08:00)
[2021-09-12] MEDS: enoxaparin 40mg/0.4ml syringe SUBCUT SCH (08:00)
[2021-09-12] MEDS: K and/or MAG REPLACEMENT MC SCH ×2 (08:00→20:00)
[2021-09-12] MEDS: lisinopril 20mg tablet PO SCH (08:00)
[2021-09-12] MEDS: docusate sod 100mg capsule PO SCH ×2 (08:00→20:00)
[2021-09-12] MEDS: thiamine 100mg tablet PO SCH (08:00)
[2021-09-12] MEDS: lactobacillus rhamnosus 10,000 MMU CELLS/CAPSULE PO SCH ×2 (08:00→21:40)
[2021-09-12] MEDS: HYDROchlorothiazide 25mg tablet PO SCH (08:01)
[2021-09-12] MEDS: folic acid 1mg tablet PO SCH (08:01)
[2021-09-12] MEDS: magnesium hydroxide 30ml (MOM) UD suspension PO SCH ×2 (08:01→20:00)
--- NOTE | 2021-09-12 08:48 | NUR ---
Reassessment: Pt has been made NPO s/p CT findings of anastomotic leak from sigmoid colon w/ abscesses 09/11 per EMR. Pt to go back to OR for diverting ostomy per MD note. Recommend advancing to Carb Controlled/Low fiber diet s/p procedure as medically appropriate. Pt may also benefit from ostomy diet education by RD s/p procedure once appropriate. No nutrition intervention at this time, will continue to monitor. Recommendations: 1) Advance to Carb Controlled/Low fiber diet as medically indicated post-op 2) Monitor need for ONS/additional protein pending further trends in PO intake 3) Bowel care per MD 4) Scaled weight this admit; weekly scaled weights thereafter 5) Ostomy diet ed by RD once pt appropriate post-op Addendum: 09/12/21 at [address] Amended: Links added.
[2021-09-12] MEDS ORDERED: morphine 2 MG/ML inj. syringe IV PRN (11:35)
[2021-09-12] MEDS ORDERED: morphine 4 MG/ML inj SYRINge IV PRN (11:35)
[2021-09-12] MEDS ORDERED: ondansetron/PF 4mg/2ml inj IV PRN (11:35)
[2021-09-12] MEDS ORDERED: meperidine/PF 25mg/ml syringe IV PRN ×3 (11:35)
[2021-09-12] MEDS ORDERED: ringers solution, lacted 1,000 ML IV SCH (11:35)
[2021-09-12] MEDS ORDERED: proCHLORperazine 10 MG/2 ml inj IV PRN (11:35)
--- NOTE | 2021-09-12 18:04 | NUR ---
Called report to recovery. Pt to OR momentarily
--- NOTE | 2021-09-12 18:24 | NUR ---
Patient in room [facility]. I have received report from MARGAUX Bojorquez and had the opportunity to ask questions and assume patient care.
--- NOTE | 2021-09-12 18:31 | NUR ---
Problems reprioritized. Patient report given, questions answered & plan of care reviewed with MARGAUX Bhatti.
[2021-09-12] MEDS ORDERED: sevoflurane 250ml liquid IH ONE (18:55)
[2021-09-12] MEDS ORDERED: ondansetron/PF 4mg/2ml inj ONE (18:55)
--- NOTE | 2021-09-12 18:57 | NUR ---
Pt is in OR
[2021-09-12] MEDS ORDERED: fentaNYL /PF 50mcg/ml 5ml ampule ONE (19:05)
[2021-09-12] MEDS ORDERED: midazolam 1 mg/ML 2ml injection ONE (19:05)
[2021-09-12] MEDS ORDERED: rocuronium 10mg/ml inj IV ONE (19:11)
[2021-09-12] MEDS ORDERED: LIDOcaine 2% (20mg/ml) 5ml vial ONE (19:11)
[2021-09-12] MEDS ORDERED: propofol inj 20 ML IV ONE (19:11)
[2021-09-12] MEDS ORDERED: dexamethasone sod phosphate 4mg/ml inj. ONE (19:25)
[2021-09-12] MEDS ORDERED: acetaminophen 1,000mg/100ml IV 100 ML IV ONE (19:34)
--- NOTE | 2021-09-12 20:10 | NUR ---
brought to room 348B via bed from recovery. oriented to rm and routine Addendum: 09/12/21 at 2137 by Trent Murrell RN Amended: Links added.
[2021-09-12] MEDS ORDERED: neostigmine methylsulfate 1 MG/ML 10ml vial ONE (20:18)
[2021-09-12] MEDS ORDERED: HYDROcodone/acetaminophen 10/325mg tab PO PRN (20:20)
--- NOTE | 2021-09-12 20:28 | NUR ---
Received from OR via BED 22G TO LEFT RA RUNNING LR, F/C DRAINING CLEAR YELLOW, ABD DSG CDI, LOOP COLOSTOMY SITE BEEFY RED OSTOMY DIVICE INTACT , accompanied by Anesthesiologist DR DAVIS AND ZIPPER CUTTERMARGAUX KUHN and report given by Anesthesiolgist. Addendum: 09/12/21 at 2042 by Diane Garcia RN Amended: Links added.
[2021-09-12] MEDS: insulin glargine (Lantus) pen - multi-dose SQ SCH (21:00)
--- NOTE | 2021-09-12 21:07 | NUR ---
Received report from OR pt VSS coming up to floor shortly.
--- NOTE | 2021-09-12 21:08 | NUR ---
PATIENT HAS MET ALL CRITERIA FOR TRANSFER TO ROOM. VSS. DRESSING TO ABD CDI, LOOP COLOSTOMY BAG INTACT. BED LOW, CALL LIGHT PRESENT AND 2 RAILS UP. REPORT HAS BEEN CALLED. ALL QUESTIONS ANSWERED TO ACCEPTING RN. ACCEPTING RN AT TO TAKE OVER CARE Addendum: 09/12/21 at 2130 by Diane Garcia RN Amended: Links added.
[2021-09-12] MEDS: labetalol 100mg tablet PO SCH (21:40)
[2021-09-13] VITALS: BP_SYST 105; BP_SYST 108; BP_DIAS 57; BP_DIAS 68
[2021-09-13] MEDS: piperacillin/tazo 3.375gm/50ml 50 ML IV SCH ×3 (00:08→17:08)
--- NOTE | 2021-09-13 00:22 | NUR ---
Pt refused second IV to infuse fluids (LR) with his Zosyn. LR and Zosyn are not compatible. Pausing the LR while the Zosyn is infused.
[2021-09-13] MEDS: ringers solution, lacted 1,000 ML IV SCH (01:59)
--- NOTE | 2021-09-13 06:40 | NUR ---
Problems reprioritized. Patient report given, questions answered & plan of care reviewed with MARGAUX Lawson.
[2021-09-13 07:00] VITALS: BP 126/72
[2021-09-13] MEDS: K and/or MAG REPLACEMENT MC SCH ×2 (08:00→20:00)
[2021-09-13] MEDS: docusate sod 100mg capsule PO SCH ×2 (08:43→20:37)
[2021-09-13] MEDS: thiamine 100mg tablet PO SCH (08:43)
[2021-09-13] MEDS: pantoprazole 40mg Tablet.DR PO SCH (08:43)
[2021-09-13] MEDS: enoxaparin 40mg/0.4ml syringe SUBCUT SCH (08:43)
[2021-09-13] MEDS: lactobacillus rhamnosus 10,000 MMU CELLS/CAPSULE PO SCH ×2 (08:43→20:37)
[2021-09-13] MEDS: folic acid 1mg tablet PO SCH (08:43)
[2021-09-13] MEDS: magnesium hydroxide 30ml (MOM) UD suspension PO SCH ×2 (08:44→20:39)
[2021-09-13] MEDS: HYDROchlorothiazide 25mg tablet PO SCH (08:45)
[2021-09-13] MEDS: lisinopril 20mg tablet PO SCH (08:46)
[2021-09-13] MEDS: amLODIPine 5mg tablet PO SCH (08:46)
[2021-09-13] MEDS: insulin Lispro (HumaLOG) vial - multi-dose SQ SCH ×3 (09:10→19:47)
[2021-09-13] MEDS: normal saline 1000ml 1,000 ML IV SCH (10:23)
--- NOTE | 2021-09-13 12:31 | NUR ---
Completed pt. wound care. Packing in incision removed. odor like BM. Lower part of incision open, spoke to charge account identification clerk. Recommending wet to dry. Moist saline packing placed in bottom of incision. GUIDO drain site not packed and coved with clean gauze and tape.
[2021-09-13 13:01] VITALS: BP 132/63
--- NOTE | 2021-09-13 18:25 | NUR ---
GAVE REPORT TO JOSE MANUEL RICHARD RN
--- NOTE | 2021-09-13 18:35 | NUR ---
Patient in room [facility]. I have received report from TINO DAMICO and had the opportunity to ask questions and assume patient care.
[2021-09-13 20:00] VITALS: BP 109/55
--- NOTE | 2021-09-13 20:30 | NUR ---
Follow up ostomy teaching with pt and . Pt is alert and oriented, is at bedside. Pt wants to learn how to do colostomy pouching, discussed with pt importance of pt learning how to empty and change pouch himself. Pt is very active and lives in [place], plan is to have pt discharge over weekend possibly. Pt states he doesn't think he will be send home with home health and want resources to call if they have issues with stoma. Reviewed informational packet, healthy skin, stoma and signs to look for. Pt and states understanding. Pt has transverse colostomy with joao in place, taught how to use monica ring to pouch over joao and secure roll and lock closure. Pt was also able to secure new pouch. Goal for pt is to have him empty out pouch on his own, chainstitch seat joiner front of mirror to change. Pt agreed, will attempt to follow up with teaching later. Addendum: 09/13/21 at 2034 by Bonnie Millan RN Amended: Links added.
[2021-09-13] MEDS: labetalol 100mg tablet PO SCH (20:36)
[2021-09-13] MEDS: insulin glargine (Lantus) pen - multi-dose SQ SCH (21:45)
[2021-09-14] VITALS: BP 148/74
[2021-09-14] MEDS: piperacillin/tazo 3.375gm/50ml 50 ML IV SCH ×3 (00:37→15:16)
[2021-09-14] MEDS: normal saline 1000ml 1,000 ML IV SCH ×2 (00:41→14:57)
--- NOTE | 2021-09-14 06:30 | NUR ---
Problems reprioritized. Patient report given, questions answered & plan of care reviewed with TINO DAMICO.
[2021-09-14 08:00] VITALS: BP 123/65
[2021-09-14] MEDS: docusate sod 100mg capsule PO SCH ×2 (08:00→20:57)
[2021-09-14] MEDS: K and/or MAG REPLACEMENT MC SCH ×2 (08:00→20:00)
[2021-09-14] MEDS: magnesium hydroxide 30ml (MOM) UD suspension PO SCH (08:00)
[2021-09-14] MEDS: insulin Lispro (HumaLOG) vial - multi-dose SQ SCH ×3 (09:09→19:17)
[2021-09-14] MEDS ORDERED: diatr meglu/diatrizoate 30ml oral sol.-(3 dose) bottle ONE (09:11)
[2021-09-14] MEDS: HYDROchlorothiazide 25mg tablet PO SCH (09:14)
[2021-09-14] MEDS: amLODIPine 5mg tablet PO SCH (09:17)
[2021-09-14] MEDS: pantoprazole 40mg Tablet.DR PO SCH (09:18)
[2021-09-14] MEDS: folic acid 1mg tablet PO SCH (09:19)
[2021-09-14] MEDS: thiamine 100mg tablet PO SCH (09:19)
[2021-09-14] MEDS: lisinopril 20mg tablet PO SCH (09:21)
[2021-09-14] MEDS: lactobacillus rhamnosus 10,000 MMU CELLS/CAPSULE PO SCH ×2 (09:23→20:57)
[2021-09-14 09:28] LABS: BASOPHILS % (AUTO) 0.4 % (0-1); EOSINOPHILS # (AUTO) 0.1 X10'3 (0-0.9); EOSINOPHILS % (AUTO) 1.1 % (0-6); HEMATOCRIT 36.3 % (42.0-52.0); HEMOGLOBIN 11.9 g/dl (14.0-17.9); LYMPHOCYTES # (AUTO) 1.3 X10'3 (1.1-4.8); LYMPHOCYTES % (AUTO) 13.4 % (21-51); MEAN CORPUSCULAR HEMOGLOBIN 30.6 PG (27.0-31.0); MEAN CORPUSCULAR HGB CONC 32.9 g/dL (33.0-36.5); MEAN PLATELET VOLUME 7.4 FL (7.4-10.4); MONOCYTES # (AUTO) 1.2 X10'3 (0-0.9); MONOCYTES % (AUTO) 12.1 % (2-12); NEUTROPHILS # (AUTO) 7.2 X10'3 (1.8-7.7); PLATELET COUNT 393 X10'3 (140-440); RED CELL DISTRIBUTION WIDTH 13.2 % (11.5-14.5); WHITE BLOOD COUNT 9.9 X10'3 (4.5-11.0)
[2021-09-14] MEDS: enoxaparin 40mg/0.4ml syringe SUBCUT SCH (09:33)
--- NOTE | 2021-09-14 09:42 | NUR ---
PAGER ID: [phone] MESSAGE: Santos Turk 348B No reason for lomas. Pt. requesting removal. May I have orders to DC f/c? Lulu [phone]
--- NOTE | 2021-09-14 09:45 | NUR ---
Lovenox given by SRN in RUQ subQ, not in R arm.
[2021-09-14 10:26] LABS: ALANINE AMINOTRANSFERASE 33 U/L (12-78); ALBUMIN 2.2 G/DL (3.4-5.0); ALBUMIN/GLOBULIN RATIO 0.6 (1.1-1.5); ALKALINE PHOSPHATASE 55 IU/L (46-116); ANION GAP 8 (8-16); ASPARTATE AMINO TRANSFERASE 23 U/L (10-37); BILIRUBIN,TOTAL 0.3 MG/DL (0.1-1.0); BLOOD UREA NITROGEN 17 MG/DL (7-18); BUN/CREATININE RATIO 13.8 (5.4-32.0); CALCIUM 7.9 MG/DL (8.5-10.1); CHLORIDE 104 MMOL/L (99-107); CREATININE 1.23 MG/DL (0.60-1.10); GLUCOSE 217 MG/DL (70-104); POTASSIUM 4.1 MMOL/L (3.5-5.1); SODIUM 137 MMOL/L (135-145); TOTAL CARBON DIOXIDE 25.2 MMOL/L (24-32); TOTAL PROTEIN 5.9 G/DL (6.4-8.2); eGFR 59 ML/MIN
[2021-09-14 11:00] VITALS: BP 116/68
--- NOTE | 2021-09-14 17:19 | NUR ---
Reassessment: Pt has been made NPO s/p CT findings of anastomotic leak from sigmoid colon w/ abscesses 09/11 per EMR. Pt to go back to OR for diverting ostomy per MD note. Recommend advancing to Carb Controlled/Low fiber diet s/p procedure as medically appropriate. Pt may also benefit from ostomy diet education by RD s/p procedure once appropriate. No nutrition intervention at this time, will continue to monitor. Recommendations: 1) continue Carb Controlled/Low fiber diet per MD 2) Monitor further PO trends for ONS needs post-op 3) Bowel care per MD 4) Scaled weight this admit; weekly scaled weights thereafter Addendum: 09/14/21 at [address] Amended: Links added.
--- NOTE | 2021-09-14 18:47 | NUR ---
Patient in room [facility]. I have received report from TINO DAMICO and had the opportunity to ask questions and assume patient care. Addendum: 09/14/21 at 1848 by Malia Kaur RN Amended: Links added.
--- NOTE | 2021-09-14 19:06 | NUR ---
Gave report to Malia DAMICO
[2021-09-14 19:30] VITALS: BP 148/74
[2021-09-14] MEDS: labetalol 100mg tablet PO SCH (20:57)
[2021-09-14] MEDS: diatr meglu/diatrizoate 30ml oral sol.-(3 dose) bottle PO SCH (21:00)
[2021-09-14] MEDS: dextrose ORAL solution 15 GM/59 ML bottle PO PRN (21:02)
[2021-09-15] VITALS (17 sets, daily range): BP systolic 96–147; BP diastolic 39–112
[2021-09-15] MEDS: piperacillin/tazo 3.375gm/50ml 50 ML IV SCH ×3 (00:19→15:47)
[2021-09-15] MEDS: insulin glargine (Lantus) pen - multi-dose SQ SCH ×2 (00:41→21:24)
--- NOTE | 2021-09-15 00:44 | NUR ---
ptblood sugar at 64 at 2100 so didn't want lantus was given dex 4 blood sugar up to 88 he wanted a sandwich and hold off on lantus till later. blood sugar now 178 and pt only wanted to take a half dose of lantus. his normal is 38 so he wanted 19 and given to him due to his concern of having blood sugar drop too low.
[2021-09-15] MEDS: normal saline 1000ml 1,000 ML IV SCH (04:14)
--- NOTE | 2021-09-15 06:21 | NUR ---
Problems reprioritized. Patient report given, questions answered & plan of care reviewed with MARGAUX STEPHEN. Addendum: 09/15/21 at 0621 by Malia Kaur RN Amended: Links added.
[2021-09-15 06:42] LABS: BASOPHILS # (AUTO) 0.1 X10'3 (0-0.2); BASOPHILS % (AUTO) 0.6 % (0-1); EOSINOPHILS # (AUTO) 0.2 X10'3 (0-0.9); EOSINOPHILS % (AUTO) 2.4 % (0-6); HEMATOCRIT 34.5 % (42.0-52.0); HEMOGLOBIN 11.6 g/dl (14.0-17.9); LYMPHOCYTES # (AUTO) 1.5 X10'3 (1.1-4.8); LYMPHOCYTES % (AUTO) 15.8 % (21-51); MEAN CORPUSCULAR HEMOGLOBIN 30.9 PG (27.0-31.0); MEAN CORPUSCULAR HGB CONC 33.7 g/dL (33.0-36.5); MEAN CORPUSCULAR VOLUME 91.9 FL (78-98); MEAN PLATELET VOLUME 7.6 FL (7.4-10.4); MONOCYTES # (AUTO) 1.1 X10'3 (0-0.9); MONOCYTES % (AUTO) 11.7 % (2-12); NEUTROPHILS # (AUTO) 6.5 X10'3 (1.8-7.7); NEUTROPHILS % (AUTO) 69.5 % (42-75); PLATELET COUNT 368 X10'3 (140-440); RED BLOOD COUNT 3.75 X10'6 (4.70-6.10); RED CELL DISTRIBUTION WIDTH 13.3 % (11.5-14.5); WHITE BLOOD COUNT 9.3 X10'3 (4.5-11.0)
--- NOTE | 2021-09-15 06:47 | NUR ---
Patient in room [facility]. I have received report from Letty DAMICO and had the opportunity to ask questions and assume patient care.
--- NOTE | 2021-09-15 06:55 | NUR ---
Patient in room [facility]. I have received report from Malia DAMICO and had the opportunity to ask questions and assume patient care.
[2021-09-15] MEDS: diatr meglu/diatrizoate 30ml oral sol.-(3 dose) bottle PO SCH ×2 (07:00→21:00)
[2021-09-15 07:03] LABS: ALANINE AMINOTRANSFERASE 36 U/L (12-78); ALBUMIN 2.3 G/DL (3.4-5.0); ALBUMIN/GLOBULIN RATIO 0.6 (1.1-1.5); ALKALINE PHOSPHATASE 52 IU/L (46-116); ANION GAP 9 (8-16); ASPARTATE AMINO TRANSFERASE 27 U/L (10-37); BILIRUBIN,TOTAL 0.2 MG/DL (0.1-1.0); BLOOD UREA NITROGEN 17 MG/DL (7-18); BUN/CREATININE RATIO 14.4 (5.4-32.0); CALCIUM 8.3 MG/DL (8.5-10.1); CHLORIDE 107 MMOL/L (99-107); CREATININE 1.18 MG/DL (0.60-1.10); GLUCOSE 152 MG/DL (70-104); POTASSIUM 4.3 MMOL/L (3.5-5.1); SODIUM 139 MMOL/L (135-145); eGFR 62 ML/MIN
[2021-09-15 07:22] LABS: PLATELET ESTIMATE NORMAL; TOTAL CELLS COUNTED 100
--- NOTE | 2021-09-15 07:27 | NUR ---
COVID test ordered for patient do to room mate being positive.
[2021-09-15] MEDS: K and/or MAG REPLACEMENT MC SCH ×2 (08:00→20:00)
[2021-09-15] MEDS: HYDROchlorothiazide 25mg tablet PO SCH (08:12)
[2021-09-15] MEDS: folic acid 1mg tablet PO SCH (08:12)
[2021-09-15] MEDS: pantoprazole 40mg Tablet.DR PO SCH (08:12)
[2021-09-15] MEDS: lisinopril 20mg tablet PO SCH (08:12)
[2021-09-15] MEDS: lactobacillus rhamnosus 10,000 MMU CELLS/CAPSULE PO SCH ×2 (08:12→20:34)
[2021-09-15] MEDS: amLODIPine 5mg tablet PO SCH (08:13)
[2021-09-15] MEDS: docusate sod 100mg capsule PO SCH ×2 (08:13→20:34)
[2021-09-15] MEDS: thiamine 100mg tablet PO SCH (08:14)
[2021-09-15] MEDS: insulin Lispro (HumaLOG) vial - multi-dose SQ SCH ×3 (09:36→19:25)
--- NOTE | 2021-09-15 10:00 | NUR ---
Wound care provided to order. Surgical wound clean, wound bed with great color. Packed with iodaform and covered with optifoam as to not put to much tape on skin to promote great wound healing.
--- NOTE | 2021-09-15 11:44 | NUR ---
Patient NPO per Dr. Mahajan for drain placement with IR.
--- NOTE | 2021-09-15 12:35 | NUR ---
Pt was alert and oriented, at the bedside. Pt states "I need to go home tomorrow, no matter what". Pt states he feels like he can't stay at the hospital anymore. Pt was able to go to the bathroom, empty his pouch with minimal assistance. Pt was also able to change out pouch while standing at sink with minimal assistance. Pt was joao was able to gently be moved so to not start to cause too much pressure on skin, pt will most likely need to change appliance everyother day due to joao. Pt states understanding. Pt and had no questions once training was completed. Addendum: 09/15/21 at 1508 by Bonnie Millan RN Amended: Links added.
--- NOTE | 2021-09-15 13:19 | NUR ---
Student documentation: I have reviewed all interventions, assessments performed and documented by Heladio CANTU of [facility]. Student Medication Administration: For all medication-pass' during this shift, all medication were reviewed, dispensed, administered and documented per hospital policy by Heladio CANTU.
[2021-09-15] MEDS ORDERED: midazolam 1 mg/ML 2ml injection ONE ×2 (13:55→14:46)
[2021-09-15] MEDS ORDERED: fentaNYL/PF 50MCG/1 ML 2ML syringe ONE ×2 (13:55→14:47)
--- NOTE | 2021-09-15 14:07 | NUR ---
IR here to pick up attendant patient to place drain as ordered.
--- NOTE | 2021-09-15 14:16 | NUR ---
Patient off the unit
--- NOTE | 2021-09-15 16:07 | NUR ---
Patient returned from IR. Drain placed.
[2021-09-15] MEDS: ceFAZolin/D5W- 1GM premix 50 ML IV SCH (16:53)
--- NOTE | 2021-09-15 17:23 | NUR ---
PAGER ID: [phone] MESSAGE: [id number] Drain has been placed by IR. Maguire [id number]
--- NOTE | 2021-09-15 18:08 | NUR ---
Problems reprioritized. Patient report given, questions answered & plan of care reviewed with Malia DAMICO.
--- NOTE | 2021-09-15 18:16 | NUR ---
Patient in room [facility]. I have received report from HAILEE, RN & RN STUDENT and had the opportunity to ask questions and assume patient care. Addendum: 09/15/21 at 1816 by Malia Kaur RN Amended: Links added.
[2021-09-15] MEDS: labetalol 100mg tablet PO SCH (20:33)
--- NOTE | 2021-09-15 21:20 | NUR ---
Blood sugar treated with 19 u of lantus and not adjusted up as per protocol, blood sugar in the AM was 144. Addendum: 09/15/21 at 2224 by Lee Ann Turk RN Amended: Links added.
[2021-09-16] VITALS: BP 132/72
[2021-09-16] MEDS: ceFAZolin/D5W- 1GM premix 50 ML IV SCH ×2 (00:36→07:58)
--- NOTE | 2021-09-16 06:08 | NUR ---
Problems reprioritized. Patient report given, questions answered & plan of care reviewed with HAILEE DAMICO. Addendum: 09/16/21 at 0609 by Malia Kaur RN Amended: Links added.
--- NOTE | 2021-09-16 06:15 | NUR ---
Patient in room [facility]. I have received report from Malia DAMICO and had the opportunity to ask questions and assume patient care.
[2021-09-16 06:37] LABS: ALANINE AMINOTRANSFERASE 59 U/L (12-78); ALBUMIN 2.6 G/DL (3.4-5.0); ALBUMIN/GLOBULIN RATIO 0.7 (1.1-1.5); ALKALINE PHOSPHATASE 57 IU/L (46-116); ANION GAP 11 (8-16); ASPARTATE AMINO TRANSFERASE 41 U/L (10-37); BILIRUBIN,TOTAL 0.3 MG/DL (0.1-1.0); BLOOD UREA NITROGEN 17 MG/DL (7-18); BUN/CREATININE RATIO 15.9 (5.4-32.0); CALCIUM 8.7 MG/DL (8.5-10.1); CHLORIDE 105 MMOL/L (99-107); CREATININE 1.07 MG/DL (0.60-1.10); GLUCOSE 143 MG/DL (70-104); POTASSIUM 4.3 MMOL/L (3.5-5.1); SODIUM 139 MMOL/L (135-145); TOTAL CARBON DIOXIDE 23.1 MMOL/L (24-32); TOTAL PROTEIN 6.4 G/DL (6.4-8.2); eGFR 70 ML/MIN
[2021-09-16 06:41] LABS: BASOPHILS # (AUTO) 0.1 X10'3 (0-0.2); BASOPHILS % (AUTO) 0.8 % (0-1); EOSINOPHILS # (AUTO) 0.2 X10'3 (0-0.9); HEMOGLOBIN 12.4 g/dl (14.0-17.9); LYMPHOCYTES # (AUTO) 1.5 X10'3 (1.1-4.8); LYMPHOCYTES % (AUTO) 15.9 % (21-51); MEAN CORPUSCULAR HEMOGLOBIN 30.8 PG (27.0-31.0); MEAN CORPUSCULAR HGB CONC 33.5 g/dL (33.0-36.5); MEAN PLATELET VOLUME 7.6 FL (7.4-10.4); MONOCYTES % (AUTO) 10.9 % (2-12); NEUTROPHILS # (AUTO) 6.5 X10'3 (1.8-7.7); NEUTROPHILS % (AUTO) 70.4 % (42-75); PLATELET COUNT 346 X10'3 (140-440); RED BLOOD COUNT 4.02 X10'6 (4.70-6.10); RED CELL DISTRIBUTION WIDTH 13.4 % (11.5-14.5); WHITE BLOOD COUNT 9.2 X10'3 (4.5-11.0)
[2021-09-16 07:14] VITALS: BP 133/59
[2021-09-16 07:39] LABS: PLATELET ESTIMATE NORMAL; TOTAL CELLS COUNTED 100
[2021-09-16] MEDS: lactobacillus rhamnosus 10,000 MMU CELLS/CAPSULE PO SCH (07:58)
[2021-09-16] MEDS: HYDROchlorothiazide 25mg tablet PO SCH (07:58)
[2021-09-16] MEDS: amLODIPine 5mg tablet PO SCH (07:58)
[2021-09-16] MEDS: docusate sod 100mg capsule PO SCH (07:58)
[2021-09-16] MEDS: pantoprazole 40mg Tablet.DR PO SCH (07:59)
[2021-09-16] MEDS: thiamine 100mg tablet PO SCH (07:59)
[2021-09-16] MEDS: folic acid 1mg tablet PO SCH (07:59)
[2021-09-16] MEDS: lisinopril 20mg tablet PO SCH (07:59)
[2021-09-16] MEDS: K and/or MAG REPLACEMENT MC SCH (08:05)
[2021-09-16] MEDS: insulin Lispro (HumaLOG) vial - multi-dose SQ SCH (09:05)
[2021-09-16] MEDS ORDERED: AMOX-117 PO (10:07)
[2021-09-16 11:00] VITALS: BP 133/68
--- NOTE | 2021-09-16 11:59 | NUR ---
Patient's IV removed. Discharge packet provided. Educated patient and about DC plan. Materials provided to patient for wound dressing changes and GUIDO draining. Patient wanting to stay for lunch and will let staff know when he is ready to be sent downstairs.
--- NOTE | 2021-09-16 13:03 | NUR ---
Discharge teaching on colostomy and midline extensive wound care. Family at bedside () for home care teaching.
--- NOTE | 2021-09-16 13:10 | NUR ---
Patient was discharged at 1310. Refer to previous nursing not about IV and other information. Patient left with all belongings.
--- NOTE | 2021-09-16 13:19 | NUR ---
Patient discharged, WC to lobby by student nurse. IV removed. Wound care supplies provided on discharge. Patient to follow up with Dr. Mahajan. Patient aware to return to ER with temp or wound drainage/discoloration. All reading materials provided. Verbal acknowledgement completed by and patient of understanding.
== END 2021-09-16 13:12 | disposition home or self-care (01) | DRG 853 ==
LOC: ER 04:59 → UNDOADMIN 07:27 → ED HOLD 07:27 → SUR 3N 18:00 → ED HOLD 18:00
PROVIDERS: ADMIT Family Medicine; ATTEND Family Medicine
PROC: 0DJD8ZZ Inspection of Lower Intestinal Tract, Via Natural or Artificial Opening Endoscopic (ICD-10-PCS; 2021-08-31)
PROC: 0DBN0ZZ Excision of Sigmoid Colon, Open Approach (ICD-10-PCS; principal; 2021-08-31 13:38)
PROC: BW211ZZ Computerized Tomography (CT Scan) of Abdomen and Pelvis using Low Osmolar Contrast (ICD-10-PCS; 2021-09-04)
PROC: BW211ZZ Computerized Tomography (CT Scan) of Abdomen and Pelvis using Low Osmolar Contrast (ICD-10-PCS; 2021-09-11)
PROC: 0D1L0Z4 Bypass Transverse Colon to Cutaneous, Open Approach (ICD-10-PCS; 2021-09-12)
PROC: 0W9G30Z Drainage of Peritoneal Cavity with Drainage Device, Percutaneous Approach (ICD-10-PCS; 2021-09-15)
DX: A41.51 Sepsis due to Escherichia coli [E. coli] (principal); N17.0 Acute kidney failure with tubular necrosis; K65.1 Peritoneal abscess; K57.20 Diverticulitis of large intestine with perforation and abscess without bleeding; E87.2 Acidosis; K56.7 Ileus, unspecified; T81.31XA Disruption of external operation (surgical) wound, not elsewhere classified, initial encounter; I10 Essential (primary) hypertension; K21.9 Gastro-esophageal reflux disease without esophagitis; E11.65 Type 2 diabetes mellitus with hyperglycemia; B96.20 Unspecified Escherichia coli [E. coli] as the cause of diseases classified elsewhere; Z20.822 Contact with and (suspected) exposure to COVID-19; E87.6 Hypokalemia; Y83.8 Other surgical procedures as the cause of abnormal reaction of the patient, or of later complication, without mention of misadventure at the time of the procedure; R06.6 Hiccough; Z91.010 Allergy to peanuts; Z91.030 Bee allergy status; Z88.6 Allergy status to analgesic agent; Z88.8 Allergy status to other drugs, medicaments and biological substances; Z79.899 Other long term (current) drug therapy; Z79.84 Long term (current) use of oral hypoglycemic drugs; Z79.4 Long term (current) use of insulin; Z90.49 Acquired absence of other specified parts of digestive tract; Y92.89 Other specified places as the place of occurrence of the external cause
CPT/HCPCS: 49406; 96365; 96375; 99285; Z7506; Z7508; 36415; 71045; 74176; 74177; 80047; 80048; 80053; 81001; 82948; 83036; 83605; 83690; 83735; 84132; 84145; 84484; 85007; 85025; 87070; 87075; 87076; 87077; 87185; 87186; 87635; 93005; 99152; 99153; A4421; A4618; A6253; A6407; A6449; A7000; C1758; C9290; C9803; G0378; J0131; J0690; J1100; J1170; J1650; J1815; J1885; J2060; J2250; J2270; J2405; J2543; J2704; J2710; J2765; J3010; J3411; J3480; J3490; J7030; J7120; Q9963; Q9967

== ENCOUNTER 2021-09-30 18:01 | Inpatient (IN) | payer OTHER ==
[~2021-09-30] VITALS: Ht 167.6 cm; Wt 96.4 kg
[~2021-09-30 18:01] MED LIST changes: -AMLO2.5T2 PO; +AMLO5TAB PO; -ATOR20TA PO; -CANA300T PO; -CAT2P TD; +DEXA6TAB PO; -HYDR12.5 PO; +HYDR25TA4 PO; +INSU100I5 SQ; -INSU100V11 SQ; +LABE100T5 PO; -LACT1CAP26 PO; +OSEL75CA17 PO; +SITA50TA7 PO
[2021-09-30 18:57] LABS: BASOPHILS % (AUTO) 0.2 % (0-1); EOSINOPHILS % (AUTO) 0 % (0-6); HEMATOCRIT 35.7 % (42.0-52.0); HEMOGLOBIN 12.3 g/dl (14.0-17.9); LYMPHOCYTES # (AUTO) 0.7 X10'3 (1.1-4.8); LYMPHOCYTES % (AUTO) 4.7 % (21-51); MEAN CORPUSCULAR HEMOGLOBIN 30.7 PG (27.0-31.0); MEAN CORPUSCULAR HGB CONC 34.4 g/dL (33.0-36.5); MEAN CORPUSCULAR VOLUME 89.2 FL (78-98); MEAN PLATELET VOLUME 7.7 FL (7.4-10.4); MONOCYTES # (AUTO) 1.4 X10'3 (0-0.9); MONOCYTES % (AUTO) 9.5 % (2-12); NEUTROPHILS # (AUTO) 12.9 X10'3 (1.8-7.7); NEUTROPHILS % (AUTO) 85.6 % (42-75); PLATELET COUNT 244 X10'3 (140-440); RED CELL DISTRIBUTION WIDTH 13.3 % (11.5-14.5); WHITE BLOOD COUNT 15.1 X10'3 (4.5-11.0)
[2021-09-30] MEDS ORDERED: ondansetron/PF 4mg/2ml inj IV ONE (19:40)
[2021-09-30] MEDS ORDERED: normal saline 1000ML IV soln IVB ONE (19:40)
[2021-09-30 19:45] LABS: ALANINE AMINOTRANSFERASE 32 U/L (12-78); ALBUMIN 3.4 G/DL (3.4-5.0); ALBUMIN/GLOBULIN RATIO 0.9 (1.1-1.5); ALKALINE PHOSPHATASE 74 IU/L (46-116); ANION GAP 16 (8-16); ASPARTATE AMINO TRANSFERASE 19 U/L (10-37); BILIRUBIN,TOTAL 0.8 MG/DL (0.1-1.0); BLOOD UREA NITROGEN 15 MG/DL (7-18); BUN/CREATININE RATIO 11.5 (5.4-32.0); CALCIUM 8.6 MG/DL (8.5-10.1); CHLORIDE 96 MMOL/L (99-107); CREATININE 1.31 MG/DL (0.60-1.10); GLUCOSE 235 MG/DL (70-104); POTASSIUM 3.6 MMOL/L (3.5-5.1); SODIUM 134 MMOL/L (135-145); TOTAL CARBON DIOXIDE 22.3 MMOL/L (24-32); TOTAL PROTEIN 7.2 G/DL (6.4-8.2); eGFR 55 ML/MIN
[2021-09-30] MEDS ORDERED: iohexol 300mg/ml 100ml inj. ONE (21:31)
[2021-09-30 22:36] LABS: CLARITY,URINE CLEAR (Clear); COLOR,URINE YELLOW (Yellow); GLUCOSE, URINE 250 mg/dl (Neg); KETONES,URINE TRACE mg/dl (Neg); LEUKOCYTE ESTERASE ,URINE NEGATIVE (Neg); NITRITES, URINE NEGATIVE (Neg); OCCULT BLOOD,URINE NEGATIVE (Neg); PROTEIN,URINE NEGATIVE (Neg); UROBILINOGEN,URINE 0.2 E.U/dL (0.2-1.0)
[2021-09-30 22:43] LABS: UA COLLECTION TYPE URINAL
[2021-09-30] MEDS ORDERED: piperacillin/tazo 3.375gm/50ml 50 ML IV ONE (22:45)
[2021-09-30] MEDS ORDERED: SITA100T15 PO (23:32)
[2021-09-30] MEDS ORDERED: mag hydrox/Alum hydrox/simeth 30ml oral suspension PO PRN (23:55)
[2021-09-30] MEDS ORDERED: magnesium 2GM in 50ml NS 50 ML IV PRN (23:55)
[2021-09-30] MEDS ORDERED: morphine 2 MG/ML inj. syringe IV PRN ×2 (23:55)
[2021-09-30] MEDS ORDERED: magnesium hydroxide 30ml (MOM) UD suspension PO PRN (23:55)
[2021-09-30] MEDS ORDERED: potassium Cl 20 mEq SR tablet PO PRN ×2 (23:55)
[2021-09-30] MEDS ORDERED: potassium CL 10mEq/100ml bag 100 ML IV PRN (23:55)
[2021-09-30] MEDS ORDERED: ondansetron/PF 4mg/2ml inj IV PRN (23:55)
[2021-09-30] MEDS ORDERED: magnesium 4gm in 100ml NS 100 ML IV PRN (23:55)
[2021-10-01] MEDS ORDERED: dextrose 50%-water 50ml dispensing syringe IV PRN ×2 (00:20)
[2021-10-01] MEDS ORDERED: DEXTROSE 15 GM of carb/4 tabs (each vial/BOTTLE has 4 tablets) PO PRN ×2 (00:20)
[2021-10-01] MEDS ORDERED: glucagon, human recombinant 1mg kit SUBCUT PRN (00:20)
[2021-10-01] MEDS ORDERED: MESSAGE TO PHARMACY PO ONE (00:20)
[2021-10-01] MEDS: normal saline 1000ml 1,000 ML IV SCH ×3 (00:46→19:55)
[2021-10-01 01:30] VITALS: BP 138/64
[2021-10-01 06:21] LABS: BASOPHILS % (AUTO) 0.2 % (0-1); EOSINOPHILS % (AUTO) 0.2 % (0-6); HEMATOCRIT 32.7 % (42.0-52.0); HEMOGLOBIN 11.1 g/dl (14.0-17.9); LYMPHOCYTES # (AUTO) 1.7 X10'3 (1.1-4.8); LYMPHOCYTES % (AUTO) 12.7 % (21-51); MEAN CORPUSCULAR HEMOGLOBIN 30.4 PG (27.0-31.0); MEAN CORPUSCULAR HGB CONC 33.9 g/dL (33.0-36.5); MEAN CORPUSCULAR VOLUME 89.8 FL (78-98); MEAN PLATELET VOLUME 7.8 FL (7.4-10.4); MONOCYTES # (AUTO) 1.6 X10'3 (0-0.9); MONOCYTES % (AUTO) 12.4 % (2-12); NEUTROPHILS # (AUTO) 9.8 X10'3 (1.8-7.7); NEUTROPHILS % (AUTO) 74.5 % (42-75); PLATELET COUNT 213 X10'3 (140-440); RED BLOOD COUNT 3.64 X10'6 (4.70-6.10); RED CELL DISTRIBUTION WIDTH 13.2 % (11.5-14.5); WHITE BLOOD COUNT 13.2 X10'3 (4.5-11.0)
--- NOTE | 2021-10-01 06:41 | NUR ---
Problems reprioritized. Patient report given, questions answered & plan of care reviewed with ALVINO. Addendum: 10/01/21 at 0641 by Heladio Hawkins RN Amended: Links added.
--- NOTE | 2021-10-01 06:46 | NUR ---
Patient in room [facility] 344B. I have received report from VELASQUEZ DAMICO and had the opportunity to ask questions and assume patient care.
[2021-10-01 07:00] LABS: ALANINE AMINOTRANSFERASE 27 U/L (12-78); ALBUMIN 2.9 G/DL (3.4-5.0); ALBUMIN/GLOBULIN RATIO 0.9 (1.1-1.5); ALKALINE PHOSPHATASE 60 IU/L (46-116); ANION GAP 14 (8-16); ASPARTATE AMINO TRANSFERASE 11 U/L (10-37); BILIRUBIN,TOTAL 0.8 MG/DL (0.1-1.0); BLOOD UREA NITROGEN 12 MG/DL (7-18); BUN/CREATININE RATIO 12.2 (5.4-32.0); CALCIUM 8.3 MG/DL (8.5-10.1); CHLORIDE 102 MMOL/L (99-107); CREATININE 0.98 MG/DL (0.60-1.10); GLUCOSE 148 MG/DL (70-104); MAGNESIUM 1.3 MG/DL (1.5-2.4); POTASSIUM 3.3 MMOL/L (3.5-5.1); SODIUM 139 MMOL/L (135-145); TOTAL CARBON DIOXIDE 22.9 MMOL/L (24-32); TOTAL PROTEIN 6.3 G/DL (6.4-8.2); eGFR 77 ML/MIN
[2021-10-01] MEDS: docusate sod 100mg capsule PO SCH ×2 (07:19→19:37)
[2021-10-01] MEDS: lisinopril 20mg tablet PO SCH ×2 (07:20→19:37)
[2021-10-01] MEDS: amLODIPine 5mg tablet PO SCH (07:20)
[2021-10-01] MEDS: pantoprazole 40mg Tablet.DR PO SCH (07:20)
[2021-10-01] MEDS: piperacillin/tazo 3.375gm/50ml 50 ML IV SCH ×2 (07:21→16:37)
[2021-10-01] MEDS: K and/or MAG REPLACEMENT MC SCH ×2 (08:00→20:00)
[2021-10-01] MEDS: magnesium Cl slow-release 64mg tablet PO PRN (10:17)
[2021-10-01 11:39] VITALS: BP 119/68
[2021-10-01] MEDS: insulin Lispro (HumaLOG) vial - multi-dose SQ SCH (14:04)
--- NOTE | 2021-10-01 14:58 | NUR ---
DM Consult: Pt hx DM A1C 8.2%; pt seen by STONE for DM ed on recent admit 09/03/21. Addendum: 10/01/21 at [address] Amended: Links added.
--- NOTE | 2021-10-01 16:27 | NUR ---
PAGER ID: [phone] MESSAGE: JANES Barger/NNEKA Patient and spouse want to talk to you LUCINDA please. MARGAUX CHAND EXT [phone]
--- NOTE | 2021-10-01 18:11 | NUR ---
Problems prioritized. Patient report given, questions answered & plan of care reviewed with VELASQUEZ DAMICO
[2021-10-01 18:40] VITALS: BP 125/73
[2021-10-01] MEDS: insulin glargine (Lantus) pen - multi-dose SQ SCH (21:36)
[2021-10-01] MEDS: labetalol 100mg tablet PO SCH (21:37)
[2021-10-02] VITALS (7 sets, daily range): BP systolic 113–137; BP diastolic 53–76
[2021-10-02] MEDS: normal saline 1000ml 1,000 ML IV SCH ×2 (00:35→15:55)
[2021-10-02 06:04] LABS: BASOPHILS % (AUTO) 0.5 % (0-1); EOSINOPHILS # (AUTO) 0.1 X10'3 (0-0.9); EOSINOPHILS % (AUTO) 1.2 % (0-6); HEMATOCRIT 31.6 % (42.0-52.0); HEMOGLOBIN 10.7 g/dl (14.0-17.9); LYMPHOCYTES # (AUTO) 1.2 X10'3 (1.1-4.8); LYMPHOCYTES % (AUTO) 11.3 % (21-51); MEAN CORPUSCULAR HEMOGLOBIN 30.7 PG (27.0-31.0); MEAN CORPUSCULAR HGB CONC 33.9 g/dL (33.0-36.5); MEAN CORPUSCULAR VOLUME 90.6 FL (78-98); MEAN PLATELET VOLUME 7.6 FL (7.4-10.4); MONOCYTES # (AUTO) 1.3 X10'3 (0-0.9); MONOCYTES % (AUTO) 12.5 % (2-12); NEUTROPHILS # (AUTO) 7.9 X10'3 (1.8-7.7); NEUTROPHILS % (AUTO) 74.5 % (42-75); PLATELET COUNT 220 X10'3 (140-440); RED BLOOD COUNT 3.48 X10'6 (4.70-6.10); RED CELL DISTRIBUTION WIDTH 13.2 % (11.5-14.5); WHITE BLOOD COUNT 10.6 X10'3 (4.5-11.0)
--- NOTE | 2021-10-02 06:26 | NUR ---
Problems reprioritized. Patient report given, questions answered & plan of care reviewed with TIERNEY. Addendum: 10/02/21 at 0626 by Heladio Hawkins RN Amended: Links added.
--- NOTE | 2021-10-02 06:38 | NUR ---
Patient in room [facility] 344B. I have received report from VELASQUEZ DAMICO and had the opportunity to ask questions and assume patient care.
[2021-10-02 06:39] LABS: ALANINE AMINOTRANSFERASE 18 U/L (12-78); ALBUMIN 2.5 G/DL (3.4-5.0); ALBUMIN/GLOBULIN RATIO 0.8 (1.1-1.5); ALKALINE PHOSPHATASE 56 IU/L (46-116); ANION GAP 12 (8-16); ASPARTATE AMINO TRANSFERASE 14 U/L (10-37); BILIRUBIN,TOTAL 0.5 MG/DL (0.1-1.0); BLOOD UREA NITROGEN 12 MG/DL (7-18); CHLORIDE 106 MMOL/L (99-107); CREATININE 0.92 MG/DL (0.60-1.10); GLUCOSE 153 MG/DL (70-104); MAGNESIUM 1.4 MG/DL (1.5-2.4); POTASSIUM 3.8 MMOL/L (3.5-5.1); SODIUM 141 MMOL/L (135-145); TOTAL CARBON DIOXIDE 23.5 MMOL/L (24-32); TOTAL PROTEIN 5.8 G/DL (6.4-8.2); eGFR 83 ML/MIN
[2021-10-02] MEDS: docusate sod 100mg capsule PO SCH ×2 (07:08→20:00)
[2021-10-02] MEDS: lisinopril 20mg tablet PO SCH ×2 (07:08→20:08)
[2021-10-02] MEDS: pantoprazole 40mg Tablet.DR PO SCH (07:08)
[2021-10-02] MEDS: piperacillin/tazo 3.375gm/50ml 50 ML IV SCH ×3 (07:08→16:59)
[2021-10-02] MEDS: amLODIPine 5mg tablet PO SCH (07:09)
[2021-10-02] MEDS: K and/or MAG REPLACEMENT MC SCH ×2 (08:00→20:03)
[2021-10-02] MEDS: insulin Lispro (HumaLOG) vial - multi-dose SQ SCH ×2 (09:05→20:12)
--- NOTE | 2021-10-02 09:16 | NUR ---
Gabe with IR notified of Dr Mahajan's notes and she will put patient on rounds For John Ribeiro to see what Dr Mahajan is wanting. Primary RN Colby aware.
--- NOTE | 2021-10-02 11:23 | NUR ---
GUIDO REMOVED NO DISCOMFORT NOTED. DENIED PAIN AT THIS TIME.
--- NOTE | 2021-10-02 11:24 | NUR ---
PAGER ID: [phone] MESSAGE: JONATHAN MARCUS/NNEKA LORA REMOVED PATIENT WANTS TO KNOW IF HE CAN EAT PLEASE THANKS MARGAUX CHAND
[2021-10-02] MEDS: magnesium Cl slow-release 64mg tablet PO PRN (15:06)
--- NOTE | 2021-10-02 18:21 | NUR ---
Patient in room [facility]ANET[facility] 344. I have received report from сергей morrison and had the opportunity to ask questions and assume patient care.
--- NOTE | 2021-10-02 18:26 | NUR ---
Problems reprioritized. Patient report given, questions answered & plan of care reviewed with MARGAUX RENO
[2021-10-02] MEDS: acetaminophen 325mg tablet PO PRN (20:09)
[2021-10-02] MEDS: labetalol 100mg tablet PO SCH (20:13)
[2021-10-02] MEDS: insulin glargine (Lantus) pen - multi-dose SQ SCH (21:42)
[2021-10-03] MEDS: piperacillin/tazo 3.375gm/50ml 50 ML IV SCH ×3 (00:32→16:59)
[2021-10-03] MEDS: normal saline 1000ml 1,000 ML IV SCH ×2 (00:32→10:39)
--- NOTE | 2021-10-03 06:05 | NUR ---
Problems reprioritized. Patient report given, questions answered & plan of care reviewed with JUAN R DAMICO.
[2021-10-03 06:14] LABS: BASOPHILS % (AUTO) 0.4 % (0-1); EOSINOPHILS # (AUTO) 0.1 X10'3 (0-0.9); EOSINOPHILS % (AUTO) 1.1 % (0-6); HEMATOCRIT 30.4 % (42.0-52.0); HEMOGLOBIN 10.4 g/dl (14.0-17.9); LYMPHOCYTES # (AUTO) 1.4 X10'3 (1.1-4.8); LYMPHOCYTES % (AUTO) 13.2 % (21-51); MEAN CORPUSCULAR HEMOGLOBIN 30.8 PG (27.0-31.0); MEAN CORPUSCULAR HGB CONC 34.1 g/dL (33.0-36.5); MEAN CORPUSCULAR VOLUME 90.5 FL (78-98); MEAN PLATELET VOLUME 7.8 FL (7.4-10.4); MONOCYTES # (AUTO) 1.3 X10'3 (0-0.9); MONOCYTES % (AUTO) 12.2 % (2-12); NEUTROPHILS # (AUTO) 7.5 X10'3 (1.8-7.7); NEUTROPHILS % (AUTO) 73.1 % (42-75); PLATELET COUNT 233 X10'3 (140-440); RED BLOOD COUNT 3.36 X10'6 (4.70-6.10); RED CELL DISTRIBUTION WIDTH 13.4 % (11.5-14.5); WHITE BLOOD COUNT 10.3 X10'3 (4.5-11.0)
--- NOTE | 2021-10-03 06:27 | NUR ---
Patient in room [facility]ET[facility] 344. I have received report from MARGAUX RENO and had the opportunity to ask questions and assume patient care.
[2021-10-03 06:37] LABS: ALANINE AMINOTRANSFERASE 17 U/L (12-78); ALBUMIN 2.4 G/DL (3.4-5.0); ALBUMIN/GLOBULIN RATIO 0.8 (1.1-1.5); ALKALINE PHOSPHATASE 54 IU/L (46-116); ANION GAP 10 (8-16); ASPARTATE AMINO TRANSFERASE 11 U/L (10-37); BILIRUBIN,TOTAL 0.6 MG/DL (0.1-1.0); BLOOD UREA NITROGEN 10 MG/DL (7-18); BUN/CREATININE RATIO 10.2 (5.4-32.0); CALCIUM 8.1 MG/DL (8.5-10.1); CHLORIDE 107 MMOL/L (99-107); CREATININE 0.98 MG/DL (0.60-1.10); GLUCOSE 147 MG/DL (70-104); MAGNESIUM 1.3 MG/DL (1.5-2.4); POTASSIUM 3.8 MMOL/L (3.5-5.1); SODIUM 141 MMOL/L (135-145); TOTAL CARBON DIOXIDE 24.5 MMOL/L (24-32); TOTAL PROTEIN 5.6 G/DL (6.4-8.2); eGFR 77 ML/MIN
--- NOTE | 2021-10-03 07:25 | NUR ---
Patient appears to be irritated at this time when asked if ok to do physical assessment. Patient monotone and states, "I guess. They've only did it 4 times today. I just want to go home. I think my mood with be better when I get home." This RN was notified that patient's temp was 100 this morning. Patient blankets and socks were removed. Cool wash cloth and sheet given to patient. This RN noticed that patient had not used his incentive spirometer as it was sitting at his bedside table in wrapping. Educated and encouraged patient to use and patient refuses at this time and states "no, I'm ok . I don't need it. I'll be fine. I just want to go home." Patient refusing to do own colostomy care. Patient stated, "this bag needs to be changed. I need you guys to do it. My normally does it but she's not here right now. When asked if patient knows how to care for and empty colostomy he states he does but he closed his eyes waiting for this RN to do it. Colostomy bag was emptied for patient.
[2021-10-03 07:31] VITALS: BP 118/70
--- NOTE | 2021-10-03 07:48 | NUR ---
Patient asked for abd dressing to be changed "because it's been a week and everyone has been tearing it back to look at it but not changing it." Abd dressing with purulent drainage changed. Patient appears to be in a better mood and stated when this RN stepped out of room patient did end up using his IS and was able to get to 2000 on it. Patient expressed his feelings regarding his admission and what made him "blow out a couple of times Friday. Let patient express his feelings and listened. Patient smiled. Will continue to monitor.
[2021-10-03] MEDS: docusate sod 100mg capsule PO SCH ×2 (08:00→19:35)
[2021-10-03] MEDS: K and/or MAG REPLACEMENT MC SCH ×2 (08:00→19:33)
[2021-10-03] MEDS: pantoprazole 40mg Tablet.DR PO SCH (09:29)
[2021-10-03] MEDS: amLODIPine 5mg tablet PO SCH (09:29)
[2021-10-03] MEDS: lisinopril 20mg tablet PO SCH ×2 (09:30→19:36)
[2021-10-03] MEDS: magnesium Cl slow-release 64mg tablet PO PRN (09:30)
[2021-10-03] MEDS: insulin Lispro (HumaLOG) vial - multi-dose SQ SCH ×2 (09:49→14:07)
[2021-10-03 12:35] VITALS: BP 123/63
[2021-10-03] MEDS: acetaminophen 325mg tablet PO PRN (17:16)
--- NOTE | 2021-10-03 18:16 | NUR ---
Problems reprioritized. Patient report given, questions answered & plan of care reviewed with MARGAUX Johnson.
[2021-10-03 19:00] VITALS: BP 132/60
[2021-10-03] MEDS: labetalol 100mg tablet PO SCH (20:49)
[2021-10-03] MEDS: insulin glargine (Lantus) pen - multi-dose SQ SCH (21:39)
[2021-10-04] VITALS: BP 139/88
[2021-10-04] MEDS: normal saline 1000ml 1,000 ML IV SCH ×2 (00:29→09:56)
[2021-10-04] MEDS: piperacillin/tazo 3.375gm/50ml 50 ML IV SCH ×2 (00:29→07:54)
[2021-10-04 06:16] LABS: BASOPHILS % (AUTO) 0.4 % (0-1); EOSINOPHILS # (AUTO) 0.1 X10'3 (0-0.9); EOSINOPHILS % (AUTO) 1.4 % (0-6); HEMATOCRIT 30.3 % (42.0-52.0); HEMOGLOBIN 10.3 g/dl (14.0-17.9); LYMPHOCYTES # (AUTO) 1.3 X10'3 (1.1-4.8); LYMPHOCYTES % (AUTO) 14.6 % (21-51); MEAN CORPUSCULAR HEMOGLOBIN 30.5 PG (27.0-31.0); MEAN CORPUSCULAR VOLUME 89.8 FL (78-98); MEAN PLATELET VOLUME 7.8 FL (7.4-10.4); MONOCYTES # (AUTO) 1.1 X10'3 (0-0.9); MONOCYTES % (AUTO) 12.8 % (2-12); NEUTROPHILS # (AUTO) 6.3 X10'3 (1.8-7.7); NEUTROPHILS % (AUTO) 70.8 % (42-75); PLATELET COUNT 250 X10'3 (140-440); RED BLOOD COUNT 3.38 X10'6 (4.70-6.10); RED CELL DISTRIBUTION WIDTH 13.1 % (11.5-14.5); WHITE BLOOD COUNT 8.8 X10'3 (4.5-11.0)
--- NOTE | 2021-10-04 06:21 | NUR ---
Patient remained NPO after midnight for drain placement procedure. Report given to MARGAUX Smyth, for continuation of care.
[2021-10-04 06:40] LABS: ALANINE AMINOTRANSFERASE 16 U/L (12-78); ALBUMIN 2.3 G/DL (3.4-5.0); ALBUMIN/GLOBULIN RATIO 0.6 (1.1-1.5); ALKALINE PHOSPHATASE 51 IU/L (46-116); ANION GAP 9 (8-16); ASPARTATE AMINO TRANSFERASE 12 U/L (10-37); BILIRUBIN,TOTAL 0.5 MG/DL (0.1-1.0); BLOOD UREA NITROGEN 9 MG/DL (7-18); BUN/CREATININE RATIO 9.4 (5.4-32.0); CALCIUM 8.3 MG/DL (8.5-10.1); CHLORIDE 107 MMOL/L (99-107); CREATININE 0.96 MG/DL (0.60-1.10); GLUCOSE 152 MG/DL (70-104); MAGNESIUM 1.4 MG/DL (1.5-2.4); SODIUM 140 MMOL/L (135-145); TOTAL CARBON DIOXIDE 23.8 MMOL/L (24-32); TOTAL PROTEIN 6.4 G/DL (6.4-8.2); eGFR 79 ML/MIN
--- NOTE | 2021-10-04 06:48 | NUR ---
Paged Dr. Weiss PAGER ID: [phone] MESSAGE: Surgical Eduarda DAMICO [phone] RE: Santos Turk. Reporting critical lab K 3.0. Can we get order for K replacement?
[2021-10-04 07:00] VITALS: BP 138/72
--- NOTE | 2021-10-04 07:03 | NUR ---
I was told during the report by the overnight babysitter RN Alex (Traveler) that patient had fever last night like 101F and tylenol was given. Vital sign documentation did not showed this temperature reading and Tylenol was given yesterday afternoon as the last dose. Patient admitted he had chills last night. I rechecked his temp this am during my rounds it was 98.1F. Will continue to monitor
[2021-10-04] MEDS: lisinopril 20mg tablet PO SCH (07:55)
[2021-10-04] MEDS: pantoprazole 40mg Tablet.DR PO SCH (07:56)
[2021-10-04] MEDS: amLODIPine 5mg tablet PO SCH (07:56)
[2021-10-04] MEDS: docusate sod 100mg capsule PO SCH (08:00)
[2021-10-04] MEDS: K and/or MAG REPLACEMENT MC SCH (08:00)
--- NOTE | 2021-10-04 08:46 | NUR ---
Paged Dr. Latham PAGER ID: [phone] MESSAGE: Surgical Eduarda RN ext [phone]. RE: Santos Turk. Reporting critical lab K 3.0. Can we resume K replacement protocol order? Patient also had fever last night 101F, do you want repeat blood culture?
[2021-10-04] MEDS ORDERED: potassium Cl 20 mEq SR tablet PO PRN ×2 (08:50)
[2021-10-04] MEDS: potassium CL 10mEq/100ml bag 100 ML IV PRN ×2 (09:47→11:04)
[2021-10-04 12:00] VITALS: BP 131/69
--- NOTE | 2021-10-04 12:17 | NUR ---
Per Dr. Latham and charge nurse Kitty, Dr. Mahajan already made rounds while I was at my lunch break. Will resume patient's meal
[2021-10-04] MEDS ORDERED: HYDR25TA4 PO (12:59)
[2021-10-04] MEDS ORDERED: CIPR-259 PO (13:26)
--- NOTE | 2021-10-04 13:35 | NUR ---
Initial: Pt admitted w/ sepsis due to surgical wound infection, CT scan of the abdomen showed midline laparotomy incisional fluid collection most consistent with abscess per EMR. Currently on Carb controlled diet w/ initially 100% intake of meals though down to 25% last 2 meals. Unable to obtain food preferences as pt was sleeping and did not wake to verbal cues. Pt could benefit from ONS if PO trends decrease, otherwise will recommend double protein w/ meals if PO intake greater than 75% of meals. Midline incision is nearly healed per records management specialist. Noted w/ 150ml ostomy output 10/01 receiving routine colace. Will continue to monitor. Recs: 1. Continue Carb controlled diet as tolerated 2. Consider ONS if PO trends decline, otherwise double protein w/ meals if PO greater than 75% 3. Bowel care per rx 4. Scaled wts Addendum: 10/04/21 at [address] Amended: Links added.
--- NOTE | 2021-10-04 15:03 | NUR ---
Discharge instructions given to patient and his at bedside. Both verbalized understanding of the instructions given. Patient's colostomy bag was changed while the was watching, she also helped me during this time. The stoma looks good with the joao in place. Midabdomen surgical incision dressing changed including the left lower abdomen puncture site. Extra wound care supplies given to patient. Peripheral IV catheter removed, tip intact.
[2021-10-04] MEDS ORDERED: POTA10TA37 PO (18:05)
[2021-10-04] MEDS ORDERED: K and/or MAG REPLACEMENT MC SCH (20:00)
== END 2021-10-04 15:20 | disposition home or self-care (01) | DRG 862 ==
LOC: ER 18:01 → ED HOLD 23:55 → SUR 3N 10-01 01:37
PROVIDERS: ADMIT Internal Medicine; ATTEND Internal Medicine
PROC: BW211ZZ Computerized Tomography (CT Scan) of Abdomen and Pelvis using Low Osmolar Contrast (ICD-10-PCS; 2021-09-30)
PROC: 0W9F3ZZ Drainage of Abdominal Wall, Percutaneous Approach (ICD-10-PCS; principal; 2021-10-02)
DX: T81.41XA Infection following a procedure, superficial incisional surgical site, initial encounter (principal); A41.9 Sepsis, unspecified organism; E11.9 Type 2 diabetes mellitus without complications; E78.00 Pure hypercholesterolemia, unspecified; E87.6 Hypokalemia; Y83.8 Other surgical procedures as the cause of abnormal reaction of the patient, or of later complication, without mention of misadventure at the time of the procedure; I10 Essential (primary) hypertension; Z93.3 Colostomy status; Z88.8 Allergy status to other drugs, medicaments and biological substances; Z91.030 Bee allergy status; Z91.018 Allergy to other foods; Z79.899 Other long term (current) drug therapy; Y92.89 Other specified places as the place of occurrence of the external cause
CPT/HCPCS: 10030; 36415; 71045; 74177; 80053; 81003; 82948; 83036; 83605; 83735; 84145; 85025; 87040; 87070; 87077; 87186; 96361; 96374; 96375; 99285; G0378; J1815; J2405; J2543; J3480; J7030; Q9967

== ENCOUNTER 2021-11-29 05:28 | Inpatient (IN) | payer OTHER ==
[2021-11-26 11:55] LABS: BASOPHILS % (AUTO) 0.5 % (0-1); EOSINOPHILS # (AUTO) 0.1 X10'3 (0-0.9); EOSINOPHILS % (AUTO) 1.5 % (0-6); LYMPHOCYTES % (AUTO) 22.4 % (21-51); MEAN CORPUSCULAR HEMOGLOBIN 29.5 PG (27.0-31.0); MEAN CORPUSCULAR HGB CONC 33.4 g/dL (33.0-36.5); MEAN CORPUSCULAR VOLUME 88.4 FL (78-98); MEAN PLATELET VOLUME 7.8 FL (7.4-10.4); MONOCYTES # (AUTO) 0.8 X10'3 (0-0.9); MONOCYTES % (AUTO) 9.3 % (2-12); NEUTROPHILS # (AUTO) 5.8 X10'3 (1.8-7.7); NEUTROPHILS % (AUTO) 66.3 % (42-75); PRE OP HEMATOCRIT 38.2 % (42.0-52.0); PRE OP HEMOGLOBIN 12.7 g/dL (14.0-17.9); PRE OP PLATELET COUNT 311 X10'3 (140-440); RED BLOOD COUNT 4.32 X10'6 (4.70-6.10); RED CELL DISTRIBUTION WIDTH 15.2 % (11.5-14.5)
[2021-11-26 11:57] LABS: CLARITY,URINE CLEAR (Clear); COLOR,URINE YELLOW (Yellow); GLUCOSE, URINE NEGATIVE (Neg); KETONES,URINE NEGATIVE (Neg); LEUKOCYTE ESTERASE ,URINE NEGATIVE (Neg); NITRITES, URINE NEGATIVE (Neg); OCCULT BLOOD,URINE NEGATIVE (Neg); PROTEIN,URINE NEGATIVE (Neg); UROBILINOGEN,URINE 0.2 E.U/dL (0.2-1.0)
[2021-11-26 12:04] LABS: UA COLLECTION TYPE VOIDED
[2021-11-26 12:07] LABS: PRE OP PROTIME 10.5 SECONDS (9.0-12.0)
[2021-11-26 12:09] LABS: ALBUMIN 3.8 G/DL (3.4-5.0); ALBUMIN/GLOBULIN RATIO 0.9 (1.1-1.5); ALKALINE PHOSPHATASE 72 IU/L (46-116); BLOOD UREA NITROGEN 12 MG/DL (7-18); BUN/CREATININE RATIO 13.6 (5.4-32.0); CALCIUM 9.1 MG/DL (8.5-10.1); CHLORIDE 103 MMOL/L (99-107); CREATININE 0.88 MG/DL (0.60-1.10); PRE OP ANION GAP 9 (8-16); PRE OP AST 54 U/L (10-37); PRE OP BILIRUB, TOTAL 0.4 MG/DL (0.0-1.0); PRE OP GLUCOSE 128 MG/DL (70-104); PRE OP POTASSIUM 3.8 MMOL/L (3.4-5.1); PRE OP SODIUM 137 MMOL/L (135-145); TOTAL CARBON DIOXIDE 24.8 MMOL/L (24-32); eGFR 87 ML/MIN
[2021-11-26 12:15] LABS: PRE OP ALT 84 U/L (30-65)
[~2021-11-29] VITALS: Ht 167.6 cm; Wt 104.3 kg
[2021-11-29] VITALS (26 sets, daily range): BP systolic 119–188; BP diastolic 60–114
[~2021-11-29 05:28] MED LIST changes: -AMLO5TAB PO; +AMLO5TAB16 PO; -DEXA6TAB PO; -HYDR25TA4 PO; -LABE100T5 PO; -OSEL75CA17 PO; +SITA100T15 PO; -SITA50TA7 PO; +ringers solution, lacted 1,000 ML IV SCH
[2021-11-29] MEDS ORDERED: famotidine 20mg tablet PO ONE (05:30)
[2021-11-29] MEDS ORDERED: ceFOXitin 2GM-NS 100mL ADDvant 100 ML IV ONE (05:30)
[2021-11-29] MEDS ORDERED: diatr meglu/diatrizoate 30ml oral sol.-(3 dose) bottle ONE (07:56)
--- NOTE | 2021-11-29 08:38 | NUR ---
PT RETURNS FROM CT. NOTIFIED CHENTE IN OR.
[2021-11-29] MEDS ORDERED: insulin regular, human 10 units/0.1 ml syringe SQ ONE ×3 (09:25→14:35)
[2021-11-29] MEDS ORDERED: sevoflurane 250ml liquid IH ONE (09:26)
[2021-11-29] MEDS ORDERED: midazolam 1 mg/ML 2ml injection ONE (09:37)
[2021-11-29] MEDS ORDERED: fentaNYL /PF 50mcg/ml 5ml ampule ONE (09:42)
[2021-11-29] MEDS ORDERED: propofol inj 20 ML IV ONE (10:15)
[2021-11-29] MEDS ORDERED: dexamethasone sod phosphate 4mg/ml inj. ONE (10:15)
[2021-11-29] MEDS ORDERED: LIDOcaine 2% (20mg/ml) 5ml vial ONE (10:15)
[2021-11-29] MEDS ORDERED: rocuronium 10mg/ml inj IV ONE ×2 (10:15)
[2021-11-29] MEDS ORDERED: ondansetron/PF 4mg/2ml inj ONE (10:15)
--- NOTE | 2021-11-29 10:30 | NUR ---
VERBAL ORDER FROM DR ONEIL FOR REGULAR INSULIN 10 UNITS SQ X 1 PLACED AT 0925. CALLED TO PHARM X2 PT IS IN OR. RECEIVED INSULIN AT 1030. INSULIN GIVEN TO CHENTE DAMICO TO TAKE INTO OR.
[2021-11-29] MEDS ORDERED: metoprolol tartrate 1mg/ml inj IV ONE (10:32)
[2021-11-29] MEDS ORDERED: proCHLORperazine 10 MG/2 ml inj IV PRN (10:50)
[2021-11-29] MEDS ORDERED: ringers solution, lacted 1,000 ML IV SCH (10:50)
[2021-11-29] MEDS ORDERED: morphine 2 MG/ML inj. syringe IV PRN (10:50)
[2021-11-29] MEDS ORDERED: acetaminophen 1,000mg/100ml IV 100 ML IV PRN (10:50)
[2021-11-29] MEDS ORDERED: hydrALAZINE 20mg/ml inj. IV PRN (10:50)
[2021-11-29] MEDS ORDERED: meperidine/PF 25mg/ml syringe IV PRN ×3 (10:50)
[2021-11-29] MEDS ORDERED: ondansetron/PF 4mg/2ml inj IV PRN (10:50)
[2021-11-29] MEDS ORDERED: BUPIVACAINE liposomal/PF 13.3 MG/ML vial IM ONE (11:33)
[2021-11-29] MEDS ORDERED: BUPIVAcaine 0.5% inj/PF 30 ML ONE (11:33)
[2021-11-29] MEDS ORDERED: ePHEDrine 50MG/ML INJ. ONE (11:34)
[2021-11-29] MEDS ORDERED: glycopyrrolate 0.2mg/ml inj ONE (11:34)
[2021-11-29] MEDS ORDERED: neostigmine methylsulfate 1 MG/ML 10ml vial ONE ×2 (11:34→12:06)
[2021-11-29] MEDS ORDERED: ketorolac trometh. 30mg/ml inj. IV PRN (12:10)
[2021-11-29] MEDS ORDERED: potassium CL 20mEq in D5-1/2NS 1,000 ML IV SCH (12:10)
[2021-11-29] MEDS ORDERED: naloxone 0.4 mg/ml inj IV PRN (12:10)
[2021-11-29] MEDS ORDERED: morphine 4 MG/ML inj SYRINge IV PRN (12:10)
[2021-11-29] MEDS ORDERED: sugammadex 200mg/2ml injection IV ONE (12:14)
--- NOTE | 2021-11-29 12:16 | NUR ---
Received from OR via BED, accompanied by Anesthesiologist DR ONEIL and report given by Anesthesiologist. PT DROWSY BUT PAINFUL, ABDOMEN W/LARGE MIDLINE INCISION W/WOUND VAC PLACEMENT, SETTINGS 125MMHG LCS, SMALL GAUZE DRSG SUPERIOR END OF INCISION CDI. COOL CATHETER TO GRAVITY DRAINAGE W/YELLOW URINE IN DRAINAGE BAG. Addendum: 11/29/21 at 1302 by Anne Pineda RN Amended: Links added.
[2021-11-29] MEDS: morphine 4 MG/ML inj SYRINge IV PRN ×2 (12:20→12:50)
[2021-11-29] MEDS: labetalol 20mg/4ml (5mg/ml) syringe IV PRN ×3 (12:34→13:02)
[2021-11-29] MEDS ORDERED: insulin regular, human 10 units/0.1 ml syringe IV ONE (12:40)
--- NOTE | 2021-11-29 14:56 | NUR ---
BS [address] ONEIL, UPDATED, ORDERS RECEIVED TO GIVE 10 UNITS REGULAR INSULIN SQ, GIVEN. DR KRUGER REQUESTED FOR THE HOSPITALIST TO FOLLOW PT, SENT TEXT/PAGE TO HOSPITALIST, INFORMED RECEIVING RN. Report called to receiving nurse. Transferred via RIAN LINDA ONLY PT Belongings SENT W/PT TO ROOM 4009B, PTS AT BEDSIDE ALONG W/RECEIVING RN, BLL, CALL LIGHT GIVEN, SIDE RAILS UP, PT IS ORIENTED TO SELF AND SAFETY. PT STATES PAIN IS IMPROVED. Special Issues communicated to receiving nurse. Addendum: 11/29/21 at 1515 by Anne Pineda RN Amended: Links added.
[2021-11-29] MEDS: normal saline 1000ml 1,000 ML IV SCH (16:05)
--- NOTE | 2021-11-29 16:17 | NUR ---
While doing patients assessment I noticed that the wound vac suction was applied onto tissue. Marla with wound care came to the floor and assisted in fixing the wound vac by applying 1 small black foam and a new suction disc. Wound vac suction at 125 mmHg per MD orders.
[2021-11-29] MEDS: ceFOXitin inj 1,000 MG in normal saline 100ml IV soln 100 ML IV SCH ×2 (16:51→23:51)
[2021-11-29] MEDS: HYDROmorphone inj. 0.5 MG/0.5 ML DISP.SYRIN IV PRN (16:52)
--- NOTE | 2021-11-29 17:32 | NUR ---
PAGER ID: [phone] MESSAGE: Freida Salinas [phone] Re: Santos Turk [id number] please call re: dilaudid, Patient states no allergy but I Noticed Anesthesiologist states makes combative please call
--- NOTE | 2021-11-29 17:35 | NUR ---
Patient and both stated patient does not have allergy to Nitrous Oxide , Codeine and Hydromorphone (dilaudid) as previously recorded on patients allergy list. Dr Nguyễn aware
--- NOTE | 2021-11-29 18:42 | NUR ---
Problems reprioritized. Patient report given, questions answered & plan of care reviewed with Lee Ann DAMICO and Dalia HERNANDESN .
[2021-11-29] MEDS ORDERED: HumuLIN NPH/Reg 70/30 insulin 10ml vial SQ SCH (20:00)
[2021-11-29] MEDS ORDERED: dextrose 50%-water 50ml dispensing syringe IV PRN ×2 (20:35)
[2021-11-29] MEDS ORDERED: DEXTROSE 15 GM of carb/4 tabs (each vial/BOTTLE has 4 tablets) PO PRN ×2 (20:35)
[2021-11-29] MEDS ORDERED: glucagon, human recombinant 1mg kit SUBCUT PRN (20:35)
[2021-11-29] MEDS ORDERED: MESSAGE TO PHARMACY PO ONE (20:35)
[2021-11-29] MEDS: insulin Lispro (HumaLOG) vial - multi-dose SQ SCH (21:55)
[2021-11-29] MEDS: insulin glargine (Lantus) pen - multi-dose SQ SCH (21:59)
[2021-11-30] MEDS: normal saline 1000ml 1,000 ML IV SCH ×3 (01:15→13:44)
[2021-11-30 01:47] VITALS: BP 156/93
[2021-11-30] MEDS: HYDROcodone/acetaminophen 10/325mg tab PO PRN ×2 (03:21→09:55)
[2021-11-30 06:00] VITALS: BP 168/83
[2021-11-30] MEDS: ondansetron/PF 4mg/2ml inj IV PRN ×2 (06:19→22:05)
[2021-11-30] MEDS: HYDROmorphone inj. 0.5 MG/0.5 ML DISP.SYRIN IV PRN ×4 (06:19→22:05)
[2021-11-30 06:52] LABS: ANION GAP 14 (8-16); BLOOD UREA NITROGEN 25 MG/DL (7-18); CHLORIDE 103 MMOL/L (99-107); CREATININE 1.51 MG/DL (0.60-1.10); GLUCOSE 290 MG/DL (70-104); POTASSIUM 4.1 MMOL/L (3.5-5.1); SODIUM 139 MMOL/L (135-145); TOTAL CARBON DIOXIDE 21.7 MMOL/L (24-32)
[2021-11-30 06:53] LABS: BUN/CREATININE RATIO 16.6 (5.4-32.0); CALCIUM 7.9 MG/DL (8.5-10.1); eGFR 47 ML/MIN
[2021-11-30 07:00] LABS: BASOPHILS % (AUTO) 0.3 % (0-1); EOSINOPHILS % (AUTO) 0 % (0-6); HEMATOCRIT 27.2 % (42.0-52.0); HEMOGLOBIN 8.8 g/dl (14.0-17.9); LYMPHOCYTES % (AUTO) 13.5 % (21-51); MEAN CORPUSCULAR HGB CONC 32.3 g/dL (33.0-36.5); MEAN CORPUSCULAR VOLUME 89.6 FL (78-98); MONOCYTES % (AUTO) 13.9 % (2-12); NEUTROPHILS # (AUTO) 10.6 X10'3 (1.8-7.7); NEUTROPHILS % (AUTO) 72.3 % (42-75); PLATELET COUNT 300 X10'3 (140-440); RED BLOOD COUNT 3.04 X10'6 (4.70-6.10); RED CELL DISTRIBUTION WIDTH 15.1 % (11.5-14.5); WHITE BLOOD COUNT 14.6 X10'3 (4.5-11.0)
[2021-11-30] MEDS: lisinopril 20mg tablet PO SCH (07:26)
[2021-11-30] MEDS: amLODIPine 5mg tablet PO SCH (07:26)
[2021-11-30] MEDS: pantoprazole 40mg Tablet.DR PO SCH (07:26)
--- NOTE | 2021-11-30 07:47 | NUR ---
Dc'd patients lomas per MD orders. Patient tolerated well. Shalini care provided.
[2021-11-30] MEDS ORDERED: linagliptin 5mg tablet PO SCH (08:00)
[2021-11-30] MEDS: insulin Lispro (HumaLOG) vial - multi-dose SQ SCH ×3 (09:58→20:59)
[2021-11-30 10:00] VITALS: BP 153/84
--- NOTE | 2021-11-30 10:10 | NUR ---
Dr Bellamy rounded on patient. Dr Blelamy aware of patients Creatinine increased to 1.51 from 0.88 received orders to DC Toradol. Dr Bellamy also aware patients H&H dropped from 12/7/38.2 to 8.8/27.2 received orders to check H&H at noon. Dr bellamy wants to monitor patients heart rate at this time does not want to treat at this time. Also, advised Dr Bellamy of patients upper abdomen pain. Trying to ambulate patient. Patient was only able to sit at bedside was to dizzy to stand up. Will continue to try.
[2021-11-30 11:58] LABS: HEMOGLOBIN 8.1 g/dl (14.0-17.9); MEAN CORPUSCULAR HEMOGLOBIN 28.6 PG (27.0-31.0); MEAN CORPUSCULAR HGB CONC 32.3 g/dL (33.0-36.5); MEAN CORPUSCULAR VOLUME 88.4 FL (78-98); MEAN PLATELET VOLUME 7.6 FL (7.4-10.4); PLATELET COUNT 285 X10'3 (140-440); RED BLOOD COUNT 2.82 X10'6 (4.70-6.10); RED CELL DISTRIBUTION WIDTH 15.1 % (11.5-14.5); WHITE BLOOD COUNT 15.1 X10'3 (4.5-11.0)
[2021-11-30] MEDS ORDERED: CefTRIAXone 2gm/D5W 50ml BAG 50 ML IV ONE (12:40)
[2021-11-30] MEDS ORDERED: CefTRIAXone 2gm/NS 100ml IVPB 100 ML IV ONE (12:44)
--- NOTE | 2021-11-30 13:12 | NUR ---
WOUND INFECTION EDUCATION PROVIDED BY WOUND CARE 1. Patient instructed to call their primary doctor, or go the ED immediately if any of the following symptoms occur: * Increased pain in wound * Increase in drainage from the wound * Redness in the skin surrounding the wound * Warmth in the skin surrounding the wound * Bleeding from the wound * Temperature of 101 or greater 2. If any of these occur while in the hospital tell a nurse immediately. PRESSURE ULCER EDUCATION: DEFINITION: A pressure ulcer is an area of skin that breaks down when you stay in one position too long. The constant pressure against the skin reduces the blood flow to that area and the affected tissue dies. CAUSES: "Being bedridden or in a wheelchair "Fragile skin "Having a chronic condition, such as diabetes or vascular disease "Inability to move certain parts of your body without assistance "Older age "Incontinence of urine or stool SYMPTOMS: "A reddened area that DOES NOT turn white when pressed on - this can be the beginning of a pressure ulcer "A blister, deep sore or a crater - these can be advanced pressure ulcers FIRST AID: "Relieve the pressure on this area "Keep the area clean and dry "Call your primary doctor if you see any of the above symptoms "DO NOT massage the area "DO NOT use a donut shaped or ring shaped pillow- these actually interfere with the blood flow and cause complications PREVENTION: "Check for pressure ulcers everyday "Change position at least every two hours to relieve pressure "Use items that help relieve pressure- pillows, sheepskin, foam padding, and powders. "Keep skin clean and dry "Eat healthy well balanced meals "Exercise daily IF YOU SEE ANY OF THESE SYMPTOMS WHILE IN THE HOSPITAL - TELL YOUR NURSE IMMEDIATELY. IF YOU SEE ANY OF THESE SYMPTOMS WHILE AT HOME OR HAVE ANY QUESTIONS OR CONCERNS ABOUT PRESSURE ULCERS - CALL YOUR PRIMARY DOCTOR IMMEDIATELY. Addendum: 11/30/21 at 1312 by Annette Yancey LVN Amended: Links added.
[2021-11-30 14:00] VITALS: BP 136/77
--- NOTE | 2021-11-30 14:51 | NUR ---
DM consult: Pt with T2DM, most recent A1c 8.2% 10/01 which is down from 8.9% 08/31. Pt s/p colostomy reversal with wound VAC placement today. Written DM education with RD contact information placed in patient's chart. Pt provided with written and verbal DM education at previous admit. Current diet order is sips and chips, recommend advancing to low fiber CHO controlled diet as medically indicated. Will continue to follow. Addendum: 11/30/21 at [address] Amended: Links added.
--- NOTE | 2021-11-30 16:52 | NUR ---
PAGER ID: [phone] MESSAGE: Ted [phone] Re: Rosalee [id number], Please call patient having heartburn would like Maalox Addendum: 11/30/21 at 1737 by Freida Ring RN received orders for Maalox prn Q6H , also received orders for patient receive Rocephin dose daily like the one he received today. Dr Nguyễn is aware that patients current vitals are 99.2 temp HR 102 RR 18 SPO2 93 RA 145/77. Patients HR did go to 140 when he stood at bedside and was dizzy.
[2021-11-30] MEDS ORDERED: albumin (Human) 5% 250ml 250 ML IV ONE (17:50)
--- NOTE | 2021-11-30 17:50 | NUR ---
Contacted Dr Mahajan regarding patients heart rate is still Tachy 122 and when he stood at bedside his heart rate went to 140. Dr Mahajan aware of his Wound culture and Dr Nguyễn putting him on Rocephin daily, and patients current WBC. Per Dr Mahajan given patient 250ml 5% Albumin.
[2021-11-30] MEDS ORDERED: mag hydrox/Alum hydrox/simeth 30ml oral suspension PO PRN (17:55)
--- NOTE | 2021-11-30 18:32 | NUR ---
Problems reprioritized. Patient report given, questions answered & plan of care reviewed with Lee Ann DAMICO and Dalia HERNANDESN.
[2021-11-30 19:00] VITALS: BP 145/77
[2021-11-30] MEDS: magnesium hydroxide 30ml (MOM) UD suspension PO SCH (20:30)
[2021-11-30] MEDS: insulin glargine (Lantus) pen - multi-dose SQ SCH (20:58)
[2021-11-30 22:43] VITALS: BP_SYST 145; BP_SYST 155; BP_DIAS 71; BP_DIAS 77
[2021-12-01] VITALS (11 sets, daily range): BP systolic 129–182; BP diastolic 68–89
--- NOTE | 2021-12-01 06:30 | NUR ---
Patient in room ORTHO 4009. I have received report from DELFIN DAMICO and had the opportunity to ask questions and assume patient care.
[2021-12-01 06:32] LABS: BASOPHILS % (AUTO) 0.1 % (0-1); EOSINOPHILS % (AUTO) 0 % (0-6); HEMATOCRIT 22.4 % (42.0-52.0); HEMOGLOBIN 7.4 g/dl (14.0-17.9); MEAN CORPUSCULAR HEMOGLOBIN 29.1 PG (27.0-31.0); MEAN CORPUSCULAR VOLUME 88.3 FL (78-98); MEAN PLATELET VOLUME 7.7 FL (7.4-10.4); MONOCYTES # (AUTO) 1.8 X10'3 (0-0.9); MONOCYTES % (AUTO) 12.6 % (2-12); NEUTROPHILS # (AUTO) 11.2 X10'3 (1.8-7.7); NEUTROPHILS % (AUTO) 80.3 % (42-75); PLATELET COUNT 266 X10'3 (140-440); RED BLOOD COUNT 2.53 X10'6 (4.70-6.10); RED CELL DISTRIBUTION WIDTH 15.4 % (11.5-14.5); WHITE BLOOD COUNT 13.9 X10'3 (4.5-11.0)
[2021-12-01 06:36] LABS: ALBUMIN 2.9 G/DL (3.4-5.0); ANION GAP 11 (8-16); BLOOD UREA NITROGEN 17 MG/DL (7-18); BUN/CREATININE RATIO 18.5 (5.4-32.0); CALCIUM 7.9 MG/DL (8.5-10.1); CHLORIDE 104 MMOL/L (99-107); CREATININE 0.92 MG/DL (0.60-1.10); GLUCOSE 275 MG/DL (70-104); POTASSIUM 4.4 MMOL/L (3.5-5.1); SODIUM 140 MMOL/L (135-145); TOTAL CARBON DIOXIDE 24.9 MMOL/L (24-32); eGFR 83 ML/MIN
[2021-12-01] MEDS: pantoprazole 40mg Tablet.DR PO SCH (07:36)
[2021-12-01] MEDS: lisinopril 20mg tablet PO SCH (07:37)
[2021-12-01] MEDS: amLODIPine 5mg tablet PO SCH (07:38)
[2021-12-01] MEDS: CefTRIAXone 2gm/NS 100ml IVPB 100 ML IV SCH (07:38)
[2021-12-01] MEDS: magnesium hydroxide 30ml (MOM) UD suspension PO SCH ×2 (07:38→19:00)
--- NOTE | 2021-12-01 07:58 | NUR ---
Student documentation: I have reviewed all interventions, assessments performed and documented by Alin CANTU . Student Medication Administration: For all medication-pass' in the time frame of 7998-9078, all medication were reviewed, dispensed, administered and documented per hospital policy by Alin CANTU.
--- NOTE | 2021-12-01 08:01 | NUR ---
Insulin was administered by Alin CANTU with 2 RN checks by Ting RN and RN. Education completed.
[2021-12-01] MEDS: insulin Lispro (HumaLOG) vial - multi-dose SQ SCH ×2 (08:05→14:01)
[2021-12-01] MEDS: hydrALAZINE 20mg/ml inj. IV PRN (11:02)
[2021-12-01] MEDS: normal saline 1000ml 1,000 ML IV SCH ×2 (11:15→17:15)
[2021-12-01] MEDS: metoclopramide 5 mg/ml inj IV PRN ×2 (14:47→20:56)
[2021-12-01] MEDS: HYDROmorphone inj. 0.5 MG/0.5 ML DISP.SYRIN IV PRN ×2 (15:42→21:27)
--- NOTE | 2021-12-01 18:25 | NUR ---
Problems reprioritized. Patient report given, questions answered & plan of care reviewed with Lee Ann DAMICO.
[2021-12-01] MEDS: ondansetron/PF 4mg/2ml inj IV PRN (19:00)
[2021-12-01] MEDS: insulin glargine (Lantus) pen - multi-dose SQ SCH (20:58)
[2021-12-02] VITALS (8 sets, daily range): BP systolic 117–160; BP diastolic 56–79
--- NOTE | 2021-12-02 00:30 | NUR ---
First stool of 600ml bld and clots, pt stating that after stool his cramps and stomach pains have decreased. VS as documented after stool were BP: 153/75, P 110, 93%RA. Addendum: 12/02/21 at 0046 by Lee Ann Turk RN Amended: Links added.
--- NOTE | 2021-12-02 01:30 | NUR ---
Bld w/clots per rectum totaling 300ml. VS 178/77, HR 113. 0215 Dr. Ansari made aware of a total of 900ml of bld/clots per rectum, and VSS... inquired about bld thinners and no new orders at this time.
[2021-12-02] MEDS: HYDROmorphone inj. 0.5 MG/0.5 ML DISP.SYRIN IV PRN ×3 (02:01→22:33)
[2021-12-02] MEDS: normal saline 1000ml 1,000 ML IV SCH (03:20)
[2021-12-02 06:15] LABS: ALBUMIN 2.8 G/DL (3.4-5.0); ANION GAP 9 (8-16); BLOOD UREA NITROGEN 13 MG/DL (7-18); BUN/CREATININE RATIO 17.1 (5.4-32.0); CALCIUM 7.6 MG/DL (8.5-10.1); CHLORIDE 105 MMOL/L (99-107); CREATININE 0.76 MG/DL (0.60-1.10); GLUCOSE 189 MG/DL (70-104); POTASSIUM 3.3 MMOL/L (3.5-5.1); SODIUM 140 MMOL/L (135-145); TOTAL CARBON DIOXIDE 26.4 MMOL/L (24-32); eGFR > 90 ML/MIN
--- NOTE | 2021-12-02 06:32 | NUR ---
Patient in room ORTHO 4009. I have received report from Jeny DAMICO and had the opportunity to ask questions and assume patient care.
[2021-12-02 06:44] LABS: BASOPHILS % (AUTO) 0.3 % (0-1); EOSINOPHILS # (AUTO) 0.1 X10'3 (0-0.9); HEMATOCRIT 24.8 % (42.0-52.0); HEMOGLOBIN 8.4 g/dl (14.0-17.9); LYMPHOCYTES # (AUTO) 1.5 X10'3 (1.1-4.8); LYMPHOCYTES % (AUTO) 14.4 % (21-51); MEAN CORPUSCULAR HEMOGLOBIN 30.3 PG (27.0-31.0); MEAN CORPUSCULAR HGB CONC 33.9 g/dL (33.0-36.5); MEAN CORPUSCULAR VOLUME 89.2 FL (78-98); MEAN PLATELET VOLUME 7.6 FL (7.4-10.4); MONOCYTES # (AUTO) 1.3 X10'3 (0-0.9); MONOCYTES % (AUTO) 12.6 % (2-12); NEUTROPHILS # (AUTO) 7.6 X10'3 (1.8-7.7); NEUTROPHILS % (AUTO) 71.7 % (42-75); PLATELET COUNT 250 X10'3 (140-440); RED BLOOD COUNT 2.78 X10'6 (4.70-6.10); RED CELL DISTRIBUTION WIDTH 15.1 % (11.5-14.5); WHITE BLOOD COUNT 10.5 X10'3 (4.5-11.0)
[2021-12-02] MEDS: lisinopril 20mg tablet PO SCH (07:13)
[2021-12-02] MEDS: pantoprazole 40mg Tablet.DR PO SCH (07:13)
[2021-12-02] MEDS: amLODIPine 5mg tablet PO SCH (07:14)
[2021-12-02] MEDS: magnesium hydroxide 30ml (MOM) UD suspension PO SCH ×2 (07:14→20:00)
[2021-12-02] MEDS: CefTRIAXone 2gm/NS 100ml IVPB 100 ML IV SCH (07:14)
--- NOTE | 2021-12-02 07:16 | NUR ---
Patient able to reposition self, at bedside and helps patient throughout the day as well. Will continue to encourage and educate to reposition. Addendum: 12/02/21 at 0717 by Ting Richter RN Amended: Links added.
[2021-12-02] MEDS: insulin Lispro (HumaLOG) vial - multi-dose SQ SCH ×2 (09:16→18:39)
--- NOTE | 2021-12-02 09:25 | NUR ---
Dr Arnold in to see patient. Reviewed H/H, order to redraw hemogram this afternoon.
--- NOTE | 2021-12-02 09:41 | NUR ---
Patient up and walking, tolerating well. No bowel sounds and having bloody stool, Dr. Arnold aware.
[2021-12-02] MEDS ORDERED: POTASSIUM BICARB 20meq eff tab 20 MEQ TABLET.EFF PO ONE (10:00)
[2021-12-02] MEDS: potassium Cl 20mEq in NS 1,000 ML IV SCH ×2 (10:38→22:33)
[2021-12-02 14:13] LABS: MAGNESIUM 2.4 MG/DL (1.5-2.4); POTASSIUM 3.7 MMOL/L (3.5-5.1)
[2021-12-02 14:14] LABS: HEMATOCRIT 23.8 % (42.0-52.0); MEAN CORPUSCULAR HEMOGLOBIN 29.9 PG (27.0-31.0); MEAN CORPUSCULAR HGB CONC 33.5 g/dL (33.0-36.5); MEAN CORPUSCULAR VOLUME 89.4 FL (78-98); MEAN PLATELET VOLUME 7.3 FL (7.4-10.4); PLATELET COUNT 250 X10'3 (140-440); RED BLOOD COUNT 2.66 X10'6 (4.70-6.10); RED CELL DISTRIBUTION WIDTH 14.9 % (11.5-14.5); WHITE BLOOD COUNT 9.9 X10'3 (4.5-11.0)
--- NOTE | 2021-12-02 14:28 | NUR ---
PAGER ID: [phone] MESSAGE: [id number] Santos H/H 1400 draw 8.0/23.8. Ting [id number]
[2021-12-02] MEDS: insulin glargine (Lantus) pen - multi-dose SQ SCH (21:00)
[2021-12-03 06:19] VITALS: BP 173/83
--- NOTE | 2021-12-03 06:29 | NUR ---
Patient in room ORTHO 4009. I have received report from NOC shift RN and had the opportunity to ask questions and assume patient care.
[2021-12-03] MEDS: CefTRIAXone 2gm/NS 100ml IVPB 100 ML IV SCH (06:43)
[2021-12-03] MEDS: pantoprazole 40mg Tablet.DR PO SCH (06:43)
[2021-12-03] MEDS: HYDROcodone/acetaminophen 10/325mg tab PO PRN ×2 (06:44→22:01)
[2021-12-03] MEDS: amLODIPine 5mg tablet PO SCH (06:44)
[2021-12-03] MEDS: magnesium hydroxide 30ml (MOM) UD suspension PO SCH ×2 (06:44→19:21)
[2021-12-03] MEDS: lisinopril 20mg tablet PO SCH (06:45)
[2021-12-03 06:58] LABS: BASOPHILS % (AUTO) 0.3 % (0-1); EOSINOPHILS # (AUTO) 0.3 X10'3 (0-0.9); EOSINOPHILS % (AUTO) 2.8 % (0-6); HEMATOCRIT 24.5 % (42.0-52.0); HEMOGLOBIN 8.1 g/dl (14.0-17.9); LYMPHOCYTES # (AUTO) 1.3 X10'3 (1.1-4.8); LYMPHOCYTES % (AUTO) 14.2 % (21-51); MEAN CORPUSCULAR HEMOGLOBIN 29.5 PG (27.0-31.0); MEAN CORPUSCULAR HGB CONC 33.1 g/dL (33.0-36.5); MEAN CORPUSCULAR VOLUME 89.2 FL (78-98); MEAN PLATELET VOLUME 7.6 FL (7.4-10.4); MONOCYTES % (AUTO) 10.5 % (2-12); NEUTROPHILS # (AUTO) 6.6 X10'3 (1.8-7.7); NEUTROPHILS % (AUTO) 72.2 % (42-75); PLATELET COUNT 279 X10'3 (140-440); RED BLOOD COUNT 2.75 X10'6 (4.70-6.10); WHITE BLOOD COUNT 9.1 X10'3 (4.5-11.0)
[2021-12-03 07:26] LABS: ALBUMIN 2.6 G/DL (3.4-5.0); ANION GAP 10 (8-16); BLOOD UREA NITROGEN 9 MG/DL (7-18); BUN/CREATININE RATIO 12.3 (5.4-32.0); CALCIUM 7.4 MG/DL (8.5-10.1); CHLORIDE 106 MMOL/L (99-107); CREATININE 0.73 MG/DL (0.60-1.10); GLUCOSE 167 MG/DL (70-104); POTASSIUM 3.6 MMOL/L (3.5-5.1); SODIUM 139 MMOL/L (135-145); TOTAL CARBON DIOXIDE 22.8 MMOL/L (24-32); eGFR > 90 ML/MIN
[2021-12-03] MEDS: insulin Lispro (HumaLOG) vial - multi-dose SQ SCH ×2 (07:44→19:12)
[2021-12-03 10:38] VITALS: BP 101/68
--- NOTE | 2021-12-03 10:42 | NUR ---
Patient up walking in the zapien with independently. Tolerating well.
--- NOTE | 2021-12-03 10:52 | NUR ---
Patient is up walking independently, doesn't need assistance or Q2 turns.
[2021-12-03] MEDS: potassium Cl 20mEq in NS 1,000 ML IV SCH (11:34)
[2021-12-03] MEDS: HYDROmorphone inj. 0.5 MG/0.5 ML DISP.SYRIN IV PRN ×2 (12:09→18:04)
--- NOTE | 2021-12-03 14:47 | NUR ---
No insulin coverage needed for lunch, patient NPO and BG 109. Patient is on a level 6 currently.
[2021-12-03 14:50] VITALS: BP 160/82
[2021-12-03] MEDS: metroNIDAZOLE-Flagyl 500mg/NS 100 ML IV SCH (15:52)
--- NOTE | 2021-12-03 16:30 | NUR ---
Dr. Humphries in to see patient. Orders to AAT Diet to CC, SL patient. MD aware of patients bloody stools and H/H.
[2021-12-03 18:00] VITALS: BP 167/75
--- NOTE | 2021-12-03 18:11 | NUR ---
Problems reprioritized. Patient report given, questions answered & plan of care reviewed with Cece DAMICO.
--- NOTE | 2021-12-03 18:25 | NUR ---
Patient in room ORTHO 4009B. I have received report from MARGAUX Maguire and had the opportunity to ask questions and assume patient care.
[2021-12-03] MEDS: hydrALAZINE 20mg/ml inj. IV PRN (19:15)
[2021-12-03 20:45] VITALS: BP 151/76
[2021-12-03] MEDS: insulin glargine (Lantus) pen - multi-dose SQ SCH (21:58)
[2021-12-03 22:00] VITALS: BP 145/79
[2021-12-04] MEDS: metroNIDAZOLE-Flagyl 500mg/NS 100 ML IV SCH ×3 (00:16→15:37)
[2021-12-04] MEDS: HYDROcodone/acetaminophen 10/325mg tab PO PRN ×4 (03:47→21:17)
[2021-12-04 06:00] VITALS: BP 166/79
[2021-12-04 06:10] LABS: BASOPHILS % (AUTO) 0.3 % (0-1); EOSINOPHILS # (AUTO) 0.2 X10'3 (0-0.9); EOSINOPHILS % (AUTO) 2.6 % (0-6); HEMATOCRIT 25.5 % (42.0-52.0); HEMOGLOBIN 8.7 g/dl (14.0-17.9); LYMPHOCYTES # (AUTO) 1.2 X10'3 (1.1-4.8); LYMPHOCYTES % (AUTO) 13.2 % (21-51); MEAN CORPUSCULAR HEMOGLOBIN 30.4 PG (27.0-31.0); MEAN CORPUSCULAR HGB CONC 33.9 g/dL (33.0-36.5); MEAN CORPUSCULAR VOLUME 89.7 FL (78-98); MEAN PLATELET VOLUME 7.4 FL (7.4-10.4); MONOCYTES # (AUTO) 0.9 X10'3 (0-0.9); NEUTROPHILS # (AUTO) 6.7 X10'3 (1.8-7.7); NEUTROPHILS % (AUTO) 73.9 % (42-75); PLATELET COUNT 326 X10'3 (140-440); RED BLOOD COUNT 2.85 X10'6 (4.70-6.10); RED CELL DISTRIBUTION WIDTH 15.1 % (11.5-14.5)
[2021-12-04 06:14] LABS: ALBUMIN 2.6 G/DL (3.4-5.0); ANION GAP 12 (8-16); BLOOD UREA NITROGEN 7 MG/DL (7-18); BUN/CREATININE RATIO 10.8 (5.4-32.0); CALCIUM 8.1 MG/DL (8.5-10.1); CHLORIDE 105 MMOL/L (99-107); CREATININE 0.65 MG/DL (0.60-1.10); GLUCOSE 137 MG/DL (70-104); POTASSIUM 3.5 MMOL/L (3.5-5.1); SODIUM 139 MMOL/L (135-145); TOTAL CARBON DIOXIDE 21.7 MMOL/L (24-32); eGFR > 90 ML/MIN
--- NOTE | 2021-12-04 06:35 | NUR ---
Problems reprioritized. Patient report given, questions answered & plan of care reviewed with MARGAUX Guan.
--- NOTE | 2021-12-04 07:00 | NUR ---
Patient in room ORTHO 4009. I have received report from Azucena DAMICO and had the opportunity to ask questions and assume patient care.
--- NOTE | 2021-12-04 07:46 | NUR ---
Initial: Pt s/p colostomy reversal 11/29 per EMR. Has just been advanced to Clear liquids yesterday 12/03 w/ 100% intake of first meal. Recommend advancing to Low Fiber/Carb controlled diet as medically indicated. Pt noted to have some bloody stools, LBM 12/03 receiving routine MoM. Limited nutrition interventions at this time, will continue to monitor. Recs: 1. Advance to Low fiber/Carb control diet as medically indicated 2. Consider Ronald smoothies BID for wound healing once diet advanced 3. Bowel care per MD 4. Weekly wts Addendum: 12/04/21 at [address] Amended: Links added.
[2021-12-04] MEDS: magnesium hydroxide 30ml (MOM) UD suspension PO SCH ×2 (08:00→19:16)
[2021-12-04] MEDS: insulin Lispro (HumaLOG) vial - multi-dose SQ SCH ×3 (08:40→19:08)
[2021-12-04] MEDS: pantoprazole 40mg Tablet.DR PO SCH (08:42)
[2021-12-04] MEDS: lisinopril 20mg tablet PO SCH (08:42)
[2021-12-04] MEDS: levoFLOXACIN-Levaquin 500mg/D5 100 ML IV SCH (08:42)
[2021-12-04] MEDS: amLODIPine 5mg tablet PO SCH (08:42)
[2021-12-04] MEDS: metoprolol tartrate 12.5mg (1/2 tablet) PO SCH ×2 (08:44→19:10)
[2021-12-04 10:00] VITALS: BP 155/76
[2021-12-04 14:00] VITALS: BP 140/75
[2021-12-04 18:00] VITALS: BP 152/79
[2021-12-04 20:30] VITALS: BP 137/76
[2021-12-04] MEDS: insulin glargine (Lantus) pen - multi-dose SQ SCH (21:14)
[2021-12-04 22:00] VITALS: BP 143/68
[2021-12-05] MEDS: metroNIDAZOLE-Flagyl 500mg/NS 100 ML IV SCH ×2 (00:27→07:27)
[2021-12-05 02:00] VITALS: BP 157/68
[2021-12-05 05:15] VITALS: BP 186/92
[2021-12-05] MEDS: hydrALAZINE 20mg/ml inj. IV PRN (05:19)
[2021-12-05] MEDS: HYDROcodone/acetaminophen 10/325mg tab PO PRN ×2 (05:19→15:43)
--- NOTE | 2021-12-05 06:22 | NUR ---
Problems reprioritized. Patient report given, questions answered & plan of care reviewed with MARGAUX Guan.
[2021-12-05 06:29] VITALS: BP 150/77
[2021-12-05 07:00] VITALS: BP 186/92
[2021-12-05] MEDS: metoprolol tartrate 12.5mg (1/2 tablet) PO SCH (07:26)
[2021-12-05] MEDS: pantoprazole 40mg Tablet.DR PO SCH (07:26)
[2021-12-05] MEDS: lisinopril 20mg tablet PO SCH (07:26)
[2021-12-05] MEDS: amLODIPine 5mg tablet PO SCH (07:26)
[2021-12-05] MEDS: magnesium hydroxide 30ml (MOM) UD suspension PO SCH (07:27)
[2021-12-05 08:50] LABS: BASOPHILS % (AUTO) 0.4 % (0-1); EOSINOPHILS # (AUTO) 0.2 X10'3 (0-0.9); EOSINOPHILS % (AUTO) 1.7 % (0-6); HEMATOCRIT 26.6 % (42.0-52.0); LYMPHOCYTES # (AUTO) 1.3 X10'3 (1.1-4.8); LYMPHOCYTES % (AUTO) 12.8 % (21-51); MEAN CORPUSCULAR HGB CONC 33.9 g/dL (33.0-36.5); MEAN CORPUSCULAR VOLUME 88.6 FL (78-98); MEAN PLATELET VOLUME 6.9 FL (7.4-10.4); MONOCYTES # (AUTO) 0.8 X10'3 (0-0.9); MONOCYTES % (AUTO) 8.6 % (2-12); NEUTROPHILS # (AUTO) 7.5 X10'3 (1.8-7.7); NEUTROPHILS % (AUTO) 76.5 % (42-75); PLATELET COUNT 348 X10'3 (140-440); RED CELL DISTRIBUTION WIDTH 15.1 % (11.5-14.5); WHITE BLOOD COUNT 9.9 X10'3 (4.5-11.0)
[2021-12-05] MEDS: insulin Lispro (HumaLOG) vial - multi-dose SQ SCH ×2 (09:02→13:17)
[2021-12-05] MEDS: levoFLOXACIN-Levaquin 500mg/D5 100 ML IV SCH (09:03)
[2021-12-05 09:11] LABS: ALANINE AMINOTRANSFERASE 18 U/L (12-78); ALBUMIN 2.8 G/DL (3.4-5.0); ALBUMIN/GLOBULIN RATIO 0.8 (1.1-1.5); ALKALINE PHOSPHATASE 49 IU/L (46-116); ANION GAP 10 (8-16); ASPARTATE AMINO TRANSFERASE 11 U/L (10-37); BILIRUBIN,TOTAL 0.5 MG/DL (0.1-1.0); BLOOD UREA NITROGEN 7 MG/DL (7-18); CHLORIDE 103 MMOL/L (99-107); GLUCOSE 196 MG/DL (70-104); POTASSIUM 3.1 MMOL/L (3.5-5.1); SODIUM 134 MMOL/L (135-145); TOTAL CARBON DIOXIDE 21.4 MMOL/L (24-32); TOTAL PROTEIN 6.4 G/DL (6.4-8.2); eGFR > 90 ML/MIN
[2021-12-05] MEDS: HYDROmorphone inj. 0.5 MG/0.5 ML DISP.SYRIN IV PRN (09:12)
[2021-12-05 10:00] VITALS: BP 138/75
--- NOTE | 2021-12-05 10:14 | NUR ---
PAGER ID: [phone] MESSAGE: Freida Salinas [phone] Re: Rosalee Please call re: electrolyte protocol and new orders for BP medication question
[2021-12-05] MEDS ORDERED: potassium Cl 20 mEq SR tablet PO STA (10:27)
[2021-12-05 10:49] LABS: MAGNESIUM 1.9 MG/DL (1.5-2.4)
[2021-12-05 14:00] VITALS: BP 156/82
[2021-12-05] MEDS ORDERED: potassium Cl 20 mEq SR tablet PO ONE (14:30)
[2021-12-05] MEDS ORDERED: potassium Cl 20 mEq SR tablet PO SCH (14:30)
[2021-12-05] MEDS ORDERED: LEVO500T90 PO (14:59)
[2021-12-05] MEDS ORDERED: HYDR-3972 PO (14:59)
[2021-12-05] MEDS ORDERED: METR-159 PO (14:59)
[2021-12-05] MEDS ORDERED: LOP12.5T PO (14:59)
--- NOTE | 2021-12-05 15:23 | NUR ---
Medication administration supervised by Clinical Hedis Manager.
--- NOTE | 2021-12-05 15:45 | NUR ---
Medication administration supervised by Clinical Manpower Development Manager.
--- NOTE | 2021-12-05 17:00 | NUR ---
Patients discharge instructions reviewed with patient and at bedside. Home wound vac set up and instructions given to patient and all questions answered. Patient aware of follow up appt with wound clinic [facility] on 12/10 at 0930. Patient instructed if wound vac dies and has been off for 2 hours the dressing will need to go to wet to dry and Dr Mahajan office should be called for instructions. Patients IV dc'd cannula intact. Patient states he has all his belongings and he is not driving home his will be driving. Patient taken to vehicle with all wound care supplies via wheelchair by PCT Will.
[2021-12-05] MEDS ORDERED: metoprolol tartrate 12.5mg (1/2 tablet) PO SCH (20:00)
[2021-12-06] MEDS ORDERED: metroNIDAZOLE 500mg tablet PO SCH
[2021-12-06] MEDS ORDERED: amLODIPine 5mg tablet PO SCH (08:00)
[2021-12-06] MEDS ORDERED: levoFLOXACIN 500mg tablet PO SCH (08:00)
== END 2021-12-05 16:45 | disposition home or self-care (01) | DRG 329 ==
LOC: PAS IN 05:28 → ORTHO 4S 16:00
PROVIDERS: ADMIT Surgery; ATTEND Surgery
PROC: 0JB80ZZ Excision of Abdomen Subcutaneous Tissue and Fascia, Open Approach (ICD-10-PCS; 2021-11-29)
PROC: 0DBL0ZZ Excision of Transverse Colon, Open Approach (ICD-10-PCS; principal; 2021-11-29 09:26)
PROC: 30233N1 Transfusion of Nonautologous Red Blood Cells into Peripheral Vein, Percutaneous Approach (ICD-10-PCS; 2021-12-01)
DX: Z43.3 Encounter for attention to colostomy (principal); N17.0 Acute kidney failure with tubular necrosis; E87.1 Hypo-osmolality and hyponatremia; K92.1 Melena; D62 Acute posthemorrhagic anemia; E11.9 Type 2 diabetes mellitus without complications; B95.4 Other streptococcus as the cause of diseases classified elsewhere; D72.829 Elevated white blood cell count, unspecified; B96.20 Unspecified Escherichia coli [E. coli] as the cause of diseases classified elsewhere; L08.9 Local infection of the skin and subcutaneous tissue, unspecified; E87.6 Hypokalemia; B96.6 Bacteroides fragilis [B. fragilis] as the cause of diseases classified elsewhere; I10 Essential (primary) hypertension; K66.0 Peritoneal adhesions (postprocedural) (postinfection); K21.9 Gastro-esophageal reflux disease without esophagitis; R00.0 Tachycardia, unspecified; R06.6 Hiccough; Z91.030 Bee allergy status
CPT/HCPCS: Z7506; Z7508; 36415; 36430; 74176; 80048; 80053; 81003; 82948; 83735; 84132; 84443; 85025; 85027; 85610; 85730; 86885; 86900; 86901; 86920; 87070; 87075; 87076; 87077; 87081; 87185; 87186; 87635; 93005; 94668; A4618; A6253; A6407; A6449; A6550; A7000; C9290; G0378; J0131; J0360; J0694; J0696; J1100; J1170; J1815; J1885; J1956; J2175; J2250; J2270; J2405; J2704; J2710; J2765; J3010; J3480; J3490; J7030; J7120; P9016; P9045; Q9963; S0020

== ENCOUNTER 2023-05-28 09:22 | Outpatient (CLI) | payer MEDICARE, OTHER ==
[~2023-05-28 09:22] MED LIST changes: -AMLO5TAB16 PO; +HYDR-3972 PO; +LOP12.5T PO; +METR-159 PO; -ringers solution, lacted 1,000 ML IV SCH
== END 2023-05-28 23:59 | disposition home or self-care (01) ==
LOC: RAD 09:22
PROVIDERS: ATTEND Surgery
DX: K42.9 Umbilical hernia without obstruction or gangrene (principal); K45.8 Other specified abdominal hernia without obstruction or gangrene; K76.0 Fatty (change of) liver, not elsewhere classified; R10.9 Unspecified abdominal pain
CPT/HCPCS: 74176

== ENCOUNTER 2023-07-11 07:30 | Inpatient (IN) | payer MEDICARE, OTHER ==
[2023-07-07 12:44] LABS: BILIRUBIN,URINE NEGATIVE (Neg); CLARITY,URINE CLEAR (Clear); COLOR,URINE YELLOW (Yellow); GLUCOSE, URINE >=1000 mg/dl (Neg); KETONES,URINE NEGATIVE (Neg); LEUKOCYTE ESTERASE ,URINE NEGATIVE (Neg); NITRITES, URINE NEGATIVE (Neg); OCCULT BLOOD,URINE NEGATIVE (Neg); PH,URINE 5.5 (4.8-8.0); PROTEIN,URINE NEGATIVE (Neg); UROBILINOGEN,URINE 0.2 E.U/dL (0.2-1.0)
[2023-07-07 12:48] LABS: HEMOGLOBIN A1C 7.3 % (4.5-6.2)
[2023-07-07 12:53] LABS: UA COLLECTION TYPE CLN CATCH MIDSTREAM
[2023-07-07 12:54] LABS: BACTERIA,URINE NONE SEEN /HPF (Neg); RBC,URINE 0-2 /HPF (0-2); SQUAMOUS EPITHELIAL CELL,UR NONE SEEN /LPF (FEW); WBC,URINE NONE SEEN /HPF (0-4)
[2023-07-07 12:56] LABS: ALBUMIN 4.1 G/DL (3.4-5.0); ALBUMIN/GLOBULIN RATIO 1.1 (1.1-1.5); ALKALINE PHOSPHATASE 74 IU/L (46-116); BLOOD UREA NITROGEN 20 MG/DL (7-18); CALCIUM 9.3 MG/DL (8.5-10.1); CHLORIDE 100 MMOL/L (99-107); CREATININE 0.91 MG/DL (0.60-1.10); PRE OP ANION GAP 11 (8-16); PRE OP AST 44 U/L (10-37); PRE OP BILIRUB, TOTAL 0.6 MG/DL (0.0-1.0); PRE OP GLUCOSE 129 MG/DL (70-104); PRE OP SODIUM 132 MMOL/L (135-145); TOTAL CARBON DIOXIDE 20.7 MMOL/L (24-32); eGFR 84 ML/MIN
[2023-07-07 13:08] LABS: PRE OP ALT 85 U/L (30-65)
[2023-07-07 13:36] LABS: BASOPHILS # (AUTO) 0.1 X10'3 (0-0.2); BASOPHILS % (AUTO) 0.5 % (0-1); EOSINOPHILS # (AUTO) 0.1 X10'3 (0-0.9); EOSINOPHILS % (AUTO) 0.9 % (0-6); LYMPHOCYTES # (AUTO) 2.4 X10'3 (1.1-4.8); LYMPHOCYTES % (AUTO) 21.6 % (21-51); MEAN CORPUSCULAR HEMOGLOBIN 29.7 PG (27.0-31.0); MEAN CORPUSCULAR HGB CONC 33.1 g/dL (33.0-36.5); MEAN CORPUSCULAR VOLUME 89.7 FL (78-98); MEAN PLATELET VOLUME 8.4 FL (7.4-10.4); MONOCYTES % (AUTO) 9.2 % (2-12); NEUTROPHILS # (AUTO) 7.5 X10'3 (1.8-7.7); NEUTROPHILS % (AUTO) 67.8 % (42-75); PRE OP HEMATOCRIT 48.3 % (42.0-52.0); PRE OP PLATELET COUNT 228 X10'3 (140-440); RED BLOOD COUNT 5.39 X10'6 (4.70-6.10)
[~2023-07-11] VITALS: Ht 165.1 cm; Wt 113.7 kg
[~2023-07-11 07:30] MED LIST changes: +CINNAMON PO; +EMPA25TA PO; -HYDR-3972 PO; +INSU100V9 SQ; -LOP12.5T PO; -METR-159 PO; +ceFOXitin 2GM-NS 100mL ADDvant 100 ML IV ONE; +famotidine 20mg tablet PO ONE; +ringers solution, lacted 1,000 ML IV SCH
[2023-07-11 10:30] VITALS: BP 160/92; PULSE 95; RESP 16; TEMP 98.1; O2SAT 97
[2023-07-11] MEDS ORDERED: gentamicin 40 MG/1 ML inj ONE (12:29)
[2023-07-11] MEDS ORDERED: BUPIVAcaine 2.5mg/ml inj 50ml vial (contains preservative) ONE (12:29)
[2023-07-11] MEDS ORDERED: clindamycin 600mg/D5W 50ml 50 ML IV ONE (12:45)
[2023-07-11 17:46] VITALS: BP 158/58; PULSE 89; RESP 16; O2SAT 99
[2023-07-11 17:50] VITALS: BP 152/86; PULSE 86; RESP 15; O2SAT 100
[2023-07-11 18:00] VITALS: BP 154/87; PULSE 87; RESP 17; O2SAT 99
[2023-07-21] MEDS ORDERED: FELO5TAB45 PO (16:32)
[2023-07-21] MEDS ORDERED: LANTUS SQ (16:32)
[2023-07-21] MEDS ORDERED: ATOR40TA72 PO (16:32)
[2023-07-21] MEDS ORDERED: INSU500I SQ (16:32)
[2023-08-27] MEDS ORDERED: AMOX-580 PO (10:21)
== END 2023-07-11 17:41 | disposition home or self-care (01) | DRG 394 ==
LOC: PAS IN 09:48
PROVIDERS: ADMIT Surgery; ATTEND Surgery
DX: K43.2 Incisional hernia without obstruction or gangrene (principal); Z68.41 Body mass index [BMI] 40.0-44.9, adult; B99.8 Other infectious disease; Z91.030 Bee allergy status; Z88.5 Allergy status to narcotic agent; Z91.018 Allergy to other foods; Z88.8 Allergy status to other drugs, medicaments and biological substances; Z91.09 Other allergy status, other than to drugs and biological substances; E66.01 Morbid (severe) obesity due to excess calories
CPT/HCPCS: 36415; 71046; 80053; 81001; 82948; 83036; 85025; 85610; 85730; 86885; 86900; 86901; 87081; 93005; J0694; J1580; J3490; J7120

== ENCOUNTER 2025-04-13 11:08 | Outpatient (CLI) | payer MEDICARE, OTHER ==
[~2025-04-13 11:08] MED LIST changes: +ASPI-1071 PO; +ATOR40TA72 PO; +COR3.125T PO; +FAMO40TA59 PO; +FURO40TA4 PO; -INSU100I5 SQ; -INSU100V9 SQ; +LANTUS SQ; -RAMI10CA69 PO; +RAMI10CA78 PO; +SPIR25TA PO; -ceFOXitin 2GM-NS 100mL ADDvant 100 ML IV ONE; -famotidine 20mg tablet PO ONE; -ringers solution, lacted 1,000 ML IV SCH
[2025-04-13 11:44] LABS: MEAN PLATELET VOLUME 8.1 FL (7.4-10.4); RED CELL DISTRIBUTION WIDTH 14.1 % (11.5-14.5)
[2025-04-13 12:04] LABS: CREATININE 1.03 MG/DL (0.60-1.10); TOTAL CARBON DIOXIDE 26.9 MMOL/L (24-32); eGFR 72 ML/MIN
== END 2025-04-13 23:59 | disposition home or self-care (01) ==
LOC: RAD 11:08
PROVIDERS: ATTEND Internal Medicine
DX: Z09 Encounter for follow-up examination after completed treatment for conditions other than malignant neoplasm (principal); Z79.899 Other long term (current) drug therapy
CPT/HCPCS: 36415; 80053; 85025